=== PATIENT | male | born 1940 | race Caucasian/White ===

== ENCOUNTER → 2018-07-26 | Outpatient (REF) | payer MEDICARE ==
[2018-07-26 16:52] LABS: APPEARANCE, URINE HAZY (CLEAR); BACTERIA, URINE AUTO NEGATIVE (NEGATIVE); BILIRUBIN, URINE AUTO NEGATIVE (NEGATIVE); BLOOD, URINE BLOOD NEGATIVE (NEGATIVE); CALCIUM OXALATE CRYSTALS SMALL; COLOR, URINE YELLOW (YELLOW); GLUCOSE, URINE (UA) AUTO NEGATIVE (NEGATIVE); KETONE, URINE AUTO NEGATIVE (NEGATIVE); LEUKOCYTE ESTERASE, URINE AUTO NEGATIVE (NEGATIVE); MUCUS, URINE SMALL (NEGATIVE); NITRITE, URINE AUTO NEGATIVE (NEGATIVE); PROTEIN, URINE AUTO NEGATIVE (NEGATIVE); RBC, URINE AUTO 3 /HPF (0-3); SPECIFIC GRAVITY URINE AUTO 1.018 (1.002-1.035); SQUAMOUS EPITHELIAL CELL UR AU 0 /HPF (0-6); WBC, URINE AUTO 0 /HPF (0-3)
[2018-07-26 17:00] LABS: BASO % 0.4 % (0.0-1.0); EOS # 0.2 10^3/uL (0.0-0.50); EOS % 4.6 % (0.0-3.0); HEMATOCRIT 36.3 % (42.0-52.0); HEMOGLOBIN 11.8 g/dl (13.5-17.5); LYMPH # 1.4 10^3/uL (1.5-4.5); LYMPH % 27.1 % (24.0-44.0); MEAN CORPUSCULAR HEMOGLOBIN 29.9 pg (27.0-33.0); MEAN CORPUSCULAR HGB CONC 32.5 g/dl (32.0-36.5); MEAN CORPUSCULAR VOLUME 91.9 fl (80.0-96.0); MONO # 0.5 10^3/uL (0.0-0.8); MONO % 9.8 % (0.0-5.0); NEUTROPHILS % 57.9 % (36.0-66.0); PLATELET COUNT, AUTOMATED 156 10^3/uL (150-450); RED BLOOD COUNT 3.95 10^6/uL (4.30-6.10); WHITE BLOOD COUNT 5.2 10^3/uL (4.0-10.0)
[2018-07-26 17:08] LABS: CREATININE, URINE 87.9 MG/DL; MALB URINE SIEMENS 6.1 MG/L; MAU/CREAT RATIO 6.9 MCG/MG (0.0-30.0)
[2018-07-26 17:39] LABS: ALBUMIN 3.3 GM/DL (3.2-5.2); ALT/SGPT 18 U/L (12-78); BILIRUBIN,TOTAL 0.5 MG/DL (0.2-1.0); BLOOD UREA NITROGEN 31 MG/DL (7-18); CALCIUM LEVEL 8.2 MG/DL (8.8-10.2); CARBON DIOXIDE LEVEL 27 MEQ/L (21-32); CHLORIDE LEVEL 102 MEQ/L (98-107); CREATININE FOR GFR 1.02 MG/DL (0.70-1.30); FREE T4 0.92 NG/DL (0.76-1.46); GLOMERULAR FILTRATION RATE > 60.0 (>42); GLUCOSE, FASTING 187 MG/DL (70-100); POTASSIUM SERUM 4.4 MEQ/L (3.5-5.1); SODIUM LEVEL 136 MEQ/L (136-145); TOTAL PROTEIN 7.2 GM/DL (6.4-8.2)
== END ==
LOC: M SFHCPLAZ 14:27
PROVIDERS: ATTEND Nurse Practitioner Family
DX: R19.7 Diarrhea, unspecified (principal); E11.65 Type 2 diabetes mellitus with hyperglycemia; R63.4 Abnormal weight loss; R35.0 Frequency of micturition
CPT/HCPCS: 36415; 80053; 81001; 82043; 83036; 84153; 84439; 84443; 85025; 87086; G0463

== ENCOUNTER → 2018-07-27 | Outpatient (REF) | payer MEDICARE | LOC: M LAB REF 10:01 | PROVIDERS: ATTEND Nurse Practitioner Family | DX: R19.7 Diarrhea, unspecified (principal) ==

== ENCOUNTER → 2018-09-04 | Outpatient (CLI) | payer MEDICARE, MEDICAID ==
--- NOTE | 2018-09-09 10:03 | REP ---
KUB: Two views. HISTORY: Full incontinence of feces. Sitz marker study. No comparison study. FINDINGS: Two views of the abdomen demonstrate a total of seven retained colonic sitz marker opacities. One of these is in the region of the hepatic flexure, another is in the splenic flexure, and the remaining five are distributed in the pelvis consistent with a location in the distal colon. There is vas deferens calcification noted along with vascular calcification. Degenerative changes are seen in the lumbar spine. Psoas margins are intact. No larger small bowel dilation is seen. Moderate stool. IMPRESSION: There are seven of the ingested sitz markers distributed in the proximal and distal colon on today's KUB films. Electronically Signed by Taco Chavis MD 09/09/2018 11:36 A
== END ==
LOC: M RAD 13:17
PROVIDERS: ATTEND Internal Medicine Gastroenterology
DX: R15.9 Full incontinence of feces (principal)

== ENCOUNTER → 2018-09-23 | Outpatient (CLI) | payer MEDICARE, MEDICAID ==
[~2018-09-23] MED LIST: E-Z-GAS II EFFERVESCENT PACKET (SODIUM BICARB./CITRIC ACID/SIMETHICONE) As Ordered ONE; E-Z-HD 98% w/w 340GM SUSP BTL As Ordered ONE; E-Z-PAQUE 96% w/w SUSP 176GM BTL As Ordered ONE
--- NOTE | 2018-09-23 17:23 | REP ---
Examination Requested: Esophagram Barium Swallow Reason For Exam/Comment: Dysphasia Esophagram: The procedure was performed JOO Soriano, under the direct supervision of Dr. Santoyo. The images were reviewed with Natanael. A single PA chest x-ray is submitted as a vault attendant film. The superior mediastinal structures are midline. The heart size is within normal limits. The lungs are clear. There are surgical wires noted in the mediastinal area from previous surgery. Liquid barium and gas producing granules were given in the erect position as well as liquid barium in the prone oblique positions in order to perform a double contrast esophagram examination. Oral and pharyngeal stages of the examination demonstrate laryngeal penetration. Esophageal transport displays evidence of to and fro peristalsis along with delayed emptying. There is no esophagitis, stricture, or mucosal ring noted. There is is a small hiatal hernia noted. Gastroesophageal reflux was not demonstrated throughout the course of this exam. Impression: 1. Laryngeal penetration. 2. Presbyesophagus 1.2 minutes of fluoroscopy time was utilized for this procedure. Reviewed by JOO Grubbs 09/23/2018 05:09 P Electronically Signed by Edy Santoyo MD 09/23/2018 05:15 P
== END ==
LOC: M RAD 10:06
PROVIDERS: ATTEND Internal Medicine Gastroenterology
DX: R13.10 Dysphagia, unspecified (principal); K22.8 Other specified diseases of esophagus

== ENCOUNTER → 2018-10-22 | Outpatient (REF) | payer MEDICARE, MEDICAID ==
[~2018-10-22] MED LIST changes: +ASPI81TA85 PO; +DONE10TA90 PO; -E-Z-GAS II EFFERVESCENT PACKET (SODIUM BICARB./CITRIC ACID/SIMETHICONE) As Ordered ONE; -E-Z-HD 98% w/w 340GM SUSP BTL As Ordered ONE; -E-Z-PAQUE 96% w/w SUSP 176GM BTL As Ordered ONE; +GABA-843 PO; +GNP50LIQ PO; +INSUDET SC; +INSUHUMDS SC; +MEMA1TAB2 PO; +TRIA37.53 PO; +VITA500T3 PO
[2018-10-22 11:50] LABS: HEMATOCRIT 36.4 % (42.0-52.0); HEMOGLOBIN 11.9 g/dl (13.5-17.5); MEAN CORPUSCULAR HEMOGLOBIN 30.4 pg (27.0-33.0); MEAN CORPUSCULAR HGB CONC 32.7 g/dl (32.0-36.5); MEAN CORPUSCULAR VOLUME 93.1 fl (80.0-96.0); PLATELET COUNT, AUTOMATED 123 10^3/uL (150-450); RED BLOOD COUNT 3.91 10^6/uL (4.30-6.10); WHITE BLOOD COUNT 5.7 10^3/uL (4.0-10.0)
[2018-10-22 12:50] LABS: ALBUMIN 3.3 GM/DL (3.2-5.2); ALT/SGPT 30 U/L (12-78); BILIRUBIN,TOTAL 0.4 MG/DL (0.2-1.0); BLOOD UREA NITROGEN 34 MG/DL (7-18); CALCIUM LEVEL 8.6 MG/DL (8.8-10.2); CARBON DIOXIDE LEVEL 27 MEQ/L (21-32); CHLORIDE LEVEL 106 MEQ/L (98-107); CHOLESTEROL LEVEL 187 MG/DL (<200); CHOLESTEROL RISK RATIO 2.968 (<5); CREATININE FOR GFR 1.16 MG/DL (0.70-1.30); FOLATE 10.1 NG/ML; GLOMERULAR FILTRATION RATE > 60.0 (>42); GLUCOSE, FASTING 143 MG/DL (70-100); HDL CHOLESTEROL 63 MG/DL (>40); LDL CHOLESTEROL 110 MG/DL (<100); MAGNESIUM LEVEL 2.1 MG/DL (1.8-2.4); NON-HDL-C 124 MG/DL; POTASSIUM SERUM 4.3 MEQ/L (3.5-5.1); SODIUM LEVEL 140 MEQ/L (136-145); TOTAL PROTEIN 6.7 GM/DL (6.4-8.2); TRIGLYCERIDES LEVEL 70 MG/DL (<150); VITAMIN B12 LEVEL 1256 PG/ML
[2018-10-22 14:38] LABS: HEMOGLOBIN A1c 7.5 %
== END ==
LOC: M SFHCPLAZ 08:38
PROVIDERS: ATTEND Nurse Practitioner Family
DX: D51.9 Vitamin B12 deficiency anemia, unspecified (principal); E11.65 Type 2 diabetes mellitus with hyperglycemia

== ENCOUNTER 2018-10-31 10:25 | Day surgery (SDC) | payer MEDICARE, MEDICAID ==
[~2018-10-31] VITALS: Ht 190.5 cm; Wt 82.6 kg
[~2018-10-31 10:25] MED LIST changes: +LIDOCAINE 2% INJ 100 MG/5 ML SDV (FOR ANES.) As Ordered ONE; +NS 1,000 ML IV ONE; +PROPOFOL 200 MG/20 ML VIAL As Ordered ONE
--- NOTE | 2018-10-31 12:07 | ROOR ---
Patient Name: Cristian Ramirez Procedure Date: 10/31/2018 11:47 AM Date of : 1940 Age: 77 Room: [facility] Gender: Male Note Status: Finalized Procedure: Upper GI endoscopy Indications: Dysphagia Providers: Bryant CISNEROS MD Referring MD: Nika León NP Requesting Provider: Medicines: Monitored Anesthesia Care Complications: No immediate complications. Procedure: Pre-Anesthesia Assessment: - The heart rate, respiratory rate, oxygen saturations, blood pressure, adequacy of pulmonary ventilation, and response to care were monitored throughout the procedure. The Endoscope was introduced through the mouth, and advanced to the second part of duodenum. The upper GI endoscopy was accomplished without difficulty. The patient tolerated the procedure well. Findings: Localized, white plaques were found in the proximal esophagus. Biopsies were taken with a cold forceps for histology. The exam of the esophagus was otherwise normal. Four biopsies were obtained with cold forceps for histology in the upper third of the esophagus, in the middle third of the esophagus and in the lower third of the esophagus. Localized mild inflammation characterized by erythema was found in the gastric antrum. Biopsies were taken with a cold forceps for histology. The exam of the stomach was otherwise normal. The examined duodenum was normal. Impression: - A few white esophageal plaques were found, suspicious for mild candidiasis. Biopsied. - The esophagus is otherwise normal. - Biopsied for r/o Eosinophilic esophagitis. - No definite cause for difficult swallowing is seen. - Mild antral gastritis. Biopsied. - The stomach was otherwise normal. - Normal examined duodenum. Recommendation: - Nystatin suspension 100,000 units PO QID for 1 week. - (the script was sent to your pharmacy on file) - Telephone endoscopist for pathology results in 2 weeks. - Soft diet. Bryant Cisneros MD Bryant CISNEROS MD 10/31/2018 12:07:03 PM Electronically signed by Braynt CISNEROS MD Number of Addenda: 0 Note Initiated On: 10/31/2018 11:47 AM Estimated Blood Loss: Estimated blood loss: none.
[2018-10-31] MEDS ORDERED: GLYCOPYRROLATE INJ 0.2 MG/ML 2 ML VIAL As Ordered ONE (12:12)
--- NOTE | 2018-10-31 12:32 | ROOR ---
Patient Name: Cristian Ramirez Procedure Date: 10/31/2018 11:48 AM Date of : 1940 Age: 77 Room: [facility] Gender: Male Note Status: Finalized Procedure: Colonoscopy Indications: Clinically significant diarrhea of unexplained origin, Change in bowel habits, Fecal incontinence, Fecal impaction with overflow sx suspected based on abnormal Sitzmark test. Providers: Bryant CISNEROS MD Referring MD: Nika León NP Requesting Provider: Medicines: Monitored Anesthesia Care Complications: No immediate complications. Procedure: Pre-Anesthesia Assessment: - The heart rate, respiratory rate, oxygen saturations, blood pressure, adequacy of pulmonary ventilation, and response to care were monitored throughout the procedure. The Colonoscope was introduced through the anus and advanced to the terminal ileum, with identification of the appendiceal orifice and IC valve. The colonoscopy was performed without difficulty. The patient tolerated the procedure well. The quality of the bowel preparation was fair. Findings: The perianal and digital rectal examinations were normal. Two sessile polyps were found in the sigmoid colon. The polyps were diminutive in size. These polyps were removed with a cold snare. Resection and retrieval were complete. Internal hemorrhoids were found during retroflexion. The hemorrhoids were medium-sized. The terminal ileum appeared normal. The exam was otherwise without abnormality on direct and retroflexion views. Impression: - Colon prep was fair/adequate afer lavage. - Two diminutive polyps in the sigmoid colon, removed with a cold snare. Resected and retrieved. - Internal hemorrhoids. - The colon examination was otherwise normal on direct and retroflexion views. - The examined portion of the ileum was normal.- Recommendation: - Repeat colonoscopy in 2 years because the bowel preparation was suboptimal. - Continue present medications. - Use daily dose of lactulose to prevent constipation repeat impaction. Bryant Cisneros MD Bryant CISNEROS MD 10/31/2018 12:32:18 PM Electronically signed by Bryant CISNEROS MD Number of Addenda: 0 Note Initiated On: 10/31/2018 11:48 AM Estimated Blood Loss: Estimated blood loss: none.
[2018-10-31 13:00] VITALS: BP 120/55
== END 2018-10-31 13:24 | disposition home or self-care (01) ==
LOC: M OPP 10:25
PROVIDERS: ATTEND Internal Medicine Gastroenterology
DX: K64.8 Other hemorrhoids (principal); D12.5 Benign neoplasm of sigmoid colon; R19.7 Diarrhea, unspecified; R19.4 Change in bowel habit; R15.9 Full incontinence of feces; K22.9 Disease of esophagus, unspecified; K29.70 Gastritis, unspecified, without bleeding; R13.10 Dysphagia, unspecified; Z79.4 Long term (current) use of insulin; Z79.82 Long term (current) use of aspirin; Z79.899 Other long term (current) drug therapy

== ENCOUNTER → 2018-11-01 | Outpatient (REF) | payer MEDICARE, MEDICAID ==
[~2018-11-01] MED LIST changes: -LIDOCAINE 2% INJ 100 MG/5 ML SDV (FOR ANES.) As Ordered ONE; -NS 1,000 ML IV ONE; -PROPOFOL 200 MG/20 ML VIAL As Ordered ONE
[2018-11-01 12:26] LABS: AMORPHOUS SEDIMENT MODERATE (NEGATIVE); APPEARANCE, URINE TURBID (CLEAR); BACTERIA, URINE AUTO 2+ (NEGATIVE); BILIRUBIN, URINE AUTO NEGATIVE (NEGATIVE); BLOOD, URINE BLOOD 1+ (NEGATIVE); COLOR, URINE YELLOW (YELLOW); GLUCOSE, URINE (UA) AUTO NEGATIVE (NEGATIVE); KETONE, URINE AUTO NEGATIVE (NEGATIVE); LEUKOCYTE ESTERASE, URINE AUTO 3+ (NEGATIVE); MUCUS, URINE SMALL (NEGATIVE); NITRITE, URINE AUTO POSITIVE (NEGATIVE); PROTEIN, URINE AUTO 1+ mg/dL (NEGATIVE); RBC, URINE AUTO 51 /HPF (0-3); SPECIFIC GRAVITY URINE AUTO 1.015 (1.002-1.035); SQUAMOUS EPITHELIAL CELL UR AU 1 /HPF (0-6); UROBILINOGEN, URINE AUTO 0.2 mg/dL (0.0-2.0); WBC, URINE AUTO TNTC /HPF (0-3)
== END ==
LOC: M SFHCPLAZ 11:47
PROVIDERS: ATTEND Nurse Practitioner Family
DX: R30.0 Dysuria (principal)
CPT/HCPCS: 81001; 81002; 87088; 87186; G0463

== ENCOUNTER → 2018-11-18 | Outpatient (REF) | payer MEDICARE, MEDICAID ==
[~2018-11-18] MED LIST changes: +CYAN500T8 PO; -VITA500T3 PO
== END ==
LOC: M LAB REF 15:37
PROVIDERS: ATTEND Physician Assistant
DX: N30.01 Acute cystitis with hematuria (principal)

== ENCOUNTER → 2018-11-30 | Outpatient (REF) | payer MEDICARE, MEDICAID, OTHER ==
[2018-11-30 21:26] LABS: APPEARANCE, URINE CLOUDY (CLEAR); BACTERIA, URINE AUTO 1+ (NEGATIVE); BILIRUBIN, URINE AUTO NEGATIVE (NEGATIVE); BLOOD, URINE BLOOD 1+ (NEGATIVE); COLOR, URINE YELLOW (YELLOW); GLUCOSE, URINE (UA) AUTO NEGATIVE (NEGATIVE); KETONE, URINE AUTO TRACE mg/dL (NEGATIVE); LEUKOCYTE ESTERASE, URINE AUTO 3+ (NEGATIVE); MUCUS, URINE SMALL (NEGATIVE); NITRITE, URINE AUTO NEGATIVE (NEGATIVE); PROTEIN, URINE AUTO NEGATIVE (NEGATIVE); RBC, URINE AUTO 9 /HPF (0-3); SPECIFIC GRAVITY URINE AUTO 1.017 (1.002-1.035); SQUAMOUS EPITHELIAL CELL UR AU 0 /HPF (0-6); UROBILINOGEN, URINE AUTO 0.2 mg/dL (0.0-2.0); WBC, URINE AUTO TNTC /HPF (0-3)
== END ==
LOC: M LAB REF 09:57
PROVIDERS: ATTEND Physician Assistant
DX: N39.0 Urinary tract infection, site not specified (principal)

== ENCOUNTER → 2018-12-20 | Outpatient (CLI) | payer MEDICARE ==
--- NOTE | 2018-12-20 13:33 | REP ---
Renal ultrasound for frequent urinary tract infections: The right kidney measures 11.1 x 6.3 x 6.3 cm. The left kidney measures 12.7 x 5.3 x 5.4 cm. The kidneys are normal size. Renal cortical echogenicity is normal bilaterally. There is no hydronephrosis or calculus on the right on the left. There are are no solid renal masses. There is a right renal upper pole 3.1 cm parapelvic cyst. This appears to be a Bosniak type 1 simple cyst. There is a right renal 1.5 cm Bosniak type 1 lower pole simple cyst. Bladder: The pre void bladder volume is 318 ml. The postvoid bladder volume is 147 ml. The postvoid residual is 46.2%. On the distended bladder views of the bladder wall is thickened measuring up to 4.4 mm and this may related to bladder infection. No focal bladder wall polyps or masses are identified. There is a left ureteral jet into the urinary bladder with color Doppler assessment. No right ureteral jet is identified, however, there is no right hydronephrosis. Impression: There are two right renal cysts as described. There are no solid renal masses. There are no renal calculi. There is no hydronephrosis. Postvoid residual in the urinary bladder is 46.2%. There is bladder wall thickening, however, there are no bladder wall polyps or masses. The right ureteral jet cannot be identified with color Doppler assessment, however there is no right hydronephrosis. The prostate is enlarged. The prostate is enlarged measuring 4.4 x 4.3 x 5.1 cm for a volume of 50.4 cc. Normal prostate volume is 25 - 30 cc. Electronically Signed by Edy Bowman MD 12/20/2018 01:25 P
== END ==
LOC: M RAD 12:19
PROVIDERS: ATTEND Nurse Practitioner Family
DX: Q61.02 Congenital multiple renal cysts (principal); N40.0 Benign prostatic hyperplasia without lower urinary tract symptoms; N39.0 Urinary tract infection, site not specified

== ENCOUNTER → 2018-12-20 | Outpatient (REF) | payer MEDICARE ==
[2018-12-20 18:10] LABS: APPEARANCE, URINE HAZY (CLEAR); BACTERIA, URINE AUTO 1+ (NEGATIVE); BILIRUBIN, URINE AUTO NEGATIVE (NEGATIVE); BLOOD, URINE BLOOD NEGATIVE (NEGATIVE); COLOR, URINE YELLOW (YELLOW); GLUCOSE, URINE (UA) AUTO NEGATIVE (NEGATIVE); KETONE, URINE AUTO NEGATIVE (NEGATIVE); LEUKOCYTE ESTERASE, URINE AUTO NEGATIVE (NEGATIVE); MUCUS, URINE SMALL (NEGATIVE); NITRITE, URINE AUTO NEGATIVE (NEGATIVE); PROTEIN, URINE AUTO NEGATIVE (NEGATIVE); RBC, URINE AUTO 13 /HPF (0-3); SPECIFIC GRAVITY URINE AUTO 1.019 (1.002-1.035); SQUAMOUS EPITHELIAL CELL UR AU 0 /HPF (0-6); UROBILINOGEN, URINE AUTO 0.2 mg/dL (0.0-2.0); WBC, URINE AUTO 1 /HPF (0-3)
== END ==
LOC: M SMT 16:57
PROVIDERS: ATTEND Nurse Practitioner Family
DX: N39.0 Urinary tract infection, site not specified (principal)

== ENCOUNTER → 2018-12-30 | Outpatient (REF) | payer MEDICARE ==
[2018-12-30 13:28] LABS: APPEARANCE, URINE CLEAR (CLEAR); BACTERIA, URINE AUTO NEGATIVE (NEGATIVE); BILIRUBIN, URINE AUTO NEGATIVE (NEGATIVE); BLOOD, URINE BLOOD NEGATIVE (NEGATIVE); COLOR, URINE YELLOW (YELLOW); GLUCOSE, URINE (UA) AUTO 1+ mg/dL (NEGATIVE); KETONE, URINE AUTO NEGATIVE (NEGATIVE); LEUKOCYTE ESTERASE, URINE AUTO NEGATIVE (NEGATIVE); MUCUS, URINE SMALL (NEGATIVE); NITRITE, URINE AUTO NEGATIVE (NEGATIVE); PROTEIN, URINE AUTO NEGATIVE (NEGATIVE); RBC, URINE AUTO 0 /HPF (0-3); SPECIFIC GRAVITY URINE AUTO 1.018 (1.002-1.035); SQUAMOUS EPITHELIAL CELL UR AU 0 /HPF (0-6); UROBILINOGEN, URINE AUTO 0.2 mg/dL (0.0-2.0); WBC, URINE AUTO 1 /HPF (0-3)
== END ==
LOC: M SMT 13:03
PROVIDERS: ATTEND Nurse Practitioner Family
DX: N39.0 Urinary tract infection, site not specified (principal)

== ENCOUNTER → 2019-01-24 | Outpatient (REF) | payer MEDICARE, MEDICAID ==
[2019-01-24 12:42] LABS: HEMATOCRIT 38.1 % (42.0-52.0); HEMOGLOBIN 12.3 g/dl (13.5-17.5); MEAN CORPUSCULAR HEMOGLOBIN 30.7 pg (27.0-33.0); MEAN CORPUSCULAR HGB CONC 32.3 g/dl (32.0-36.5); PLATELET COUNT, AUTOMATED 163 10^3/uL (150-450); RED BLOOD COUNT 4.01 10^6/uL (4.30-6.10); WHITE BLOOD COUNT 6.1 10^3/uL (4.0-10.0)
[2019-01-24 12:50] LABS: ALBUMIN 3.3 GM/DL (3.2-5.2); ALT/SGPT 106 U/L (12-78); BILIRUBIN,TOTAL 0.8 MG/DL (0.2-1.0); BLOOD UREA NITROGEN 22 MG/DL (7-18); CARBON DIOXIDE LEVEL 29 MEQ/L (21-32); CHLORIDE LEVEL 106 MEQ/L (98-107); CREATININE FOR GFR 1.06 MG/DL (0.70-1.30); FERRITIN 200 NG/ML (26-388); GLOMERULAR FILTRATION RATE > 60.0 (>35); GLUCOSE, FASTING 121 MG/DL (70-100); IRON (FE) 55 UG/DL (65-175); PERCENT SATURATION 19.1 % (19.7-50.0); POTASSIUM SERUM 4.5 MEQ/L (3.5-5.1); SODIUM LEVEL 140 MEQ/L (136-145); TOTAL IRON BINDING CAPACITY 288 UG/DL (250-450); TOTAL PROTEIN 6.9 GM/DL (6.4-8.2)
[2019-01-24 14:13] LABS: HEMOGLOBIN A1c 6.7 %
== END ==
LOC: M SFHCPLAZ 08:52
PROVIDERS: ATTEND Nurse Practitioner Family
DX: D64.9 Anemia, unspecified (principal); E11.65 Type 2 diabetes mellitus with hyperglycemia

== ENCOUNTER → 2019-02-11 | Outpatient (CLI) | payer MEDICARE, OTHER, MEDICAID ==
[2019-02-11 11:09] LABS: % LABILE ALKALINE PHOSPHATASE 70.8 %; ALBUMIN 3.2 GM/DL (3.2-5.2); BILIRUBIN,DIRECT 0.3 MG/DL (0.0-0.2); BILIRUBIN,TOTAL 0.6 MG/DL (0.2-1.0); TOTAL PROTEIN 6.7 GM/DL (6.4-8.2)
[2019-02-12 12:43] LABS: HEPATITIS C VIRUS ABY INDEX 0.2 INDEX (<0.8)
== END ==
LOC: M WUC 08:19
PROVIDERS: ATTEND Nurse Practitioner Family
DX: R94.5 Abnormal results of liver function studies (principal)

== ENCOUNTER → 2019-02-17 | Outpatient (CLI) | payer MEDICARE, OTHER, MEDICAID ==
--- NOTE | 2019-02-17 10:13 | REP ---
RIGHT UPPER QUADRANT ULTRASOUND: Real-time sonographic evaluation of the right upper quadrant performed. Gallbladder is contracted. Multiple gallstones are seen. There is gallbladder wall thickening up to 6 mm. Rounded hypoechoic area in the region of the fundus of the gallbladder could be related to adherent sludge, but underlying polyp cannot be excluded 1.5 cm in diameter. There is no pericholecystic fluid. There is no intrahepatic or extrahepatic biliary dilatation, common bile duct measuring 6 mm. Liver demonstrates no gross mass. Pancreas could not be visualized due to overlying bowel gas. Right kidney demonstrates no hydronephrosis with normal size 11.2 cm in length. There is a right renal cyst in the upper aspect 2.8 x 2.6 x 2.7 cm. IMPRESSION: Contracted gallbladder containing sludge and stones. Gallbladder wall appears thickened at 6 mm, but this could be partially due to its contacted state. Rounded structure in the region of the fundus along the inner wall could represent sludge, but underlying 1.5 cm polyp could not be excluded. This is difficult to evaluate due to the contraction of the gallbladder. No free fluid. No biliary dilatation. Electronically Signed by Edy Santoyo MD 02/17/2019 04:32 P
== END ==
LOC: M RAD 07:36
PROVIDERS: ATTEND Nurse Practitioner Family
DX: R94.5 Abnormal results of liver function studies (principal)

== ENCOUNTER → 2019-02-21 | Outpatient (REF) | payer MEDICARE, OTHER, MEDICAID ==
[2019-02-21 14:43] LABS: APPEARANCE, URINE CLEAR (CLEAR); BACTERIA, URINE AUTO NEGATIVE (NEGATIVE); BILIRUBIN, URINE AUTO NEGATIVE (NEGATIVE); BLOOD, URINE BLOOD 1+ (NEGATIVE); COLOR, URINE YELLOW (YELLOW); GLUCOSE, URINE (UA) AUTO NEGATIVE (NEGATIVE); KETONE, URINE AUTO NEGATIVE (NEGATIVE); LEUKOCYTE ESTERASE, URINE AUTO NEGATIVE (NEGATIVE); NITRITE, URINE AUTO NEGATIVE (NEGATIVE); PROTEIN, URINE AUTO NEGATIVE (NEGATIVE); RBC, URINE AUTO 1 /HPF (0-3); SPECIFIC GRAVITY URINE AUTO 1.011 (1.002-1.035); SQUAMOUS EPITHELIAL CELL UR AU 0 /HPF (0-6); UROBILINOGEN, URINE AUTO 0.2 mg/dL (0.0-2.0); WBC, URINE AUTO 1 /HPF (0-3)
== END ==
LOC: M SMT 13:19
PROVIDERS: ATTEND Nurse Practitioner Family
DX: N39.0 Urinary tract infection, site not specified (principal)
CPT/HCPCS: 51798; 81001; 87086; G0463

== ENCOUNTER → 2019-04-03 | Outpatient (REF) | payer MEDICARE, OTHER, MEDICAID ==
[2019-04-03 15:03] LABS: APPEARANCE, URINE CLEAR (CLEAR); BACTERIA, URINE AUTO NEGATIVE (NEGATIVE); BILIRUBIN, URINE AUTO NEGATIVE (NEGATIVE); BLOOD, URINE BLOOD NEGATIVE (NEGATIVE); COLOR, URINE YELLOW (YELLOW); GLUCOSE, URINE (UA) AUTO NEGATIVE (NEGATIVE); KETONE, URINE AUTO NEGATIVE (NEGATIVE); LEUKOCYTE ESTERASE, URINE AUTO NEGATIVE (NEGATIVE); NITRITE, URINE AUTO NEGATIVE (NEGATIVE); PROTEIN, URINE AUTO NEGATIVE (NEGATIVE); RBC, URINE AUTO 1 /HPF (0-3); SPECIFIC GRAVITY URINE AUTO 1.014 (1.002-1.035); SQUAMOUS EPITHELIAL CELL UR AU 0 /HPF (0-6); UROBILINOGEN, URINE AUTO 0.2 mg/dL (0.0-2.0); WBC, URINE AUTO 0 /HPF (0-3)
== END ==
LOC: M SMT 13:28
PROVIDERS: ATTEND Nurse Practitioner Family
DX: R32 Unspecified urinary incontinence (principal)
CPT/HCPCS: 51798; 81001; 87086; G0463

== ENCOUNTER → 2019-04-11 | Outpatient (CLI) | payer MEDICARE, OTHER ==
--- NOTE | 2019-04-11 14:34 | REP ---
MRI ABDOMEN WITHOUT CONTRAST: COMPARISON: Liver ultrasound 02/17/2019. The gallbladder is somewhat contracted. There is diffuse irregular wall thickening. Underlying neoplasm or polyp cannot be excluded. There is mild central intrahepatic biliary dilatation. Common bile duct is mildly dilated up to 10 mm. In the distal common bile duct there appear to be a few tiny filling defects 3 to 4 mm in diameter suspicious for calculi. No definite liver mass is seen. Spleen is normal in size with no intrinsic abnormality. The adrenal glands are normal. Pancreas demonstrates multiple tiny subcentimeter cystic structures throughout the head, body and tail. The largest is in the uncinate process measuring 8 mm. There is no pancreatic duct diltation. Cyst in the mid right kidney measures 3.5 cm in diameter. Another in the lower pole of the right kidney measures 1.2 cm in diameter. No adenopathy is seen. No free fluid is seen in the abdomen. IMPRESSION: Irregular thickening of the gallbladder wall with contraction of the gallbladder. Heterogeneous signal in the lumen. I cannot exclude underlying neoplasm or polyp. Common bile duct is mildly dilated up to 10 mm. I suspect a few tiny stones in the distal common bile duct. Multiple subcentimeter cysts scattered throughout the pancreas. The largest is in the uncinate process measuring 8 mm maximally. Recommend followup MRI in 1 year. Right renal cyst. Electronically Signed by Edy Santoyo MD 04/14/2019 09:33 A
== END ==
LOC: M RAD 10:43
PROVIDERS: ATTEND Surgery
DX: R94.5 Abnormal results of liver function studies (principal); K86.2 Cyst of pancreas; N28.1 Cyst of kidney, acquired

== ENCOUNTER → 2019-06-05 | Outpatient (CLI) | payer MEDICARE, OTHER ==
[~2019-06-05] MED LIST changes: +MEMA10TA19 PO; -MEMA1TAB2 PO
[2019-06-05 13:28] LABS: ALBUMIN 3.7 GM/DL (3.2-5.2); BILIRUBIN,TOTAL 0.4 MG/DL (0.2-1.0); CALCIUM LEVEL 8.7 MG/DL (8.8-10.2); CREATININE FOR GFR 1.25 MG/DL (0.70-1.30); GLOMERULAR FILTRATION RATE 59.2 (>35); POTASSIUM SERUM 4.8 MEQ/L (3.5-5.1); TOTAL PROTEIN 7.3 GM/DL (6.4-8.2)
[2019-06-05 14:00] LABS: HEMOGLOBIN A1c 7.2 %
[2019-06-05 14:06] LABS: MAU/CREAT RATIO 14.2 MCG/MG (0.0-30.0)
== END ==
LOC: M PLALAB 09:13
PROVIDERS: ATTEND Nurse Practitioner Family
DX: E11.40 Type 2 diabetes mellitus with diabetic neuropathy, unspecified (principal)

== ENCOUNTER 2019-06-11 05:54 | Day surgery (SDC) | payer MEDICARE ==
[~2019-06-11] VITALS: Ht 190.5 cm; Wt 87.9 kg
[2019-06-11] MEDS ORDERED: LR 1,000 ML IV ONE (06:00)
[2019-06-11] MEDS ORDERED: SIMETHICONE 40MG/0.6ML DROPS 30ML As Ordered ONE (07:06)
[2019-06-11] MEDS ORDERED: ISOVUE-300 61% 50ML VIAL (Q9967) As Ordered ONE (07:06)
[2019-06-11] MEDS ORDERED: LIDOCAINE 2% INJ 100 MG/5 ML SDV (FOR ANES.) As Ordered ONE (07:16)
[2019-06-11] MEDS ORDERED: fentaNYL 100 MCG/2 ML INJECTION (J3010) As Ordered ONE (07:16)
[2019-06-11] MEDS ORDERED: ONDANSETRON 4MG/2ML VIAL (J2405) As Ordered ONE (07:16)
[2019-06-11] MEDS ORDERED: ROCURONIUM BROMIDE 50 MG/5 ML VIAL As Ordered ONE (07:16)
[2019-06-11] MEDS ORDERED: propofoL 200 MG/20 ML VIAL As Ordered ONE (07:16)
[2019-06-11] MEDS ORDERED: SUGAMMADEX SODIUM 500 MG/5 ML VIAL (BRIDION) As Ordered ONE (08:06)
--- NOTE | 2019-06-11 08:24 | ROOR ---
Patient Name: Cristian Ramirez Procedure Date: 06/11/2019 7:16 AM Date of : 1940 Age: 78 Room: [facility] Gender: Male Note Status: Finalized Procedure: ERCP Indications: Common bile duct stone(s) Providers: Bryant CISNEROS MD Referring MD: Nika León NP, Lux Jansen Jr, MD Requesting Provider: Medicines: General Anesthesia Complications: No immediate complications. Procedure: Pre-Anesthesia Assessment: - After reviewing the risks and benefits, the patient was deemed in satisfactory condition to undergo the procedure. - The heart rate, respiratory rate, oxygen saturations, blood pressure, adequacy of pulmonary ventilation, and response to care were monitored throughout the procedure. The Duodenoscope was introduced through the mouth, and advanced to the duodenum and used to inject contrast into the bile duct. The ERCP was accomplished without difficulty. The patient tolerated the procedure well. Findings: The cleaner furniture film was normal. The esophagus was successfully intubated under direct vision. The scope was advanced to a normal major papilla in the descending duodenum without detailed examination of the pharynx, larynx and associated structures, and upper GI tract. The upper GI tract was grossly normal. A wire was passed into the biliary tree. The bile duct was then deeply cannulated over the guidewire. Contrast was injected. I personally interpreted the bile duct images. Ductal flow of contrast was adequate. Image quality was adequate. Contrast extended to the main bile duct. Contrast extended to the cystic duct. Contrast extended to the bifurcation. Contrast extended to the hepatic ducts. Choledocholithiasis was found in a nondilated duct. An 8 mm biliary sphincterotomy was made with a monofilament traction (standard) sphincterotome using ERBE electrocautery. There was no post-sphincterotomy bleeding. The biliary tree was swept with a 12 mm balloon starting at the bifurcation. All stones were removed. Impression: - Choledocholithiasis was found. Complete removal was accomplished by biliary sphincterotomy and balloon extraction. - A biliary sphincterotomy was performed. The biliary tree was swept. - Cystic duct fills partially, Gallbladder does not visualize. Recommendation: - Surgical consultation for consideration of cholecystectomy at the next available appointment. - Written discharge instructions were provided to the patient. Bryant Cisneros MD Bryant CISNEROS MD 06/11/2019 8:24:15 AM Electronically signed by Bryant CISNEROS MD Number of Addenda: 0 Note Initiated On: 06/11/2019 7:16 AM Estimated Blood Loss: Estimated blood loss: none.
[2019-06-11] MEDS ORDERED: ePHEDrine SULFATE 25 MG/5 ML(5MG/ML) SYRINGE As Ordered ONE (08:31)
[2019-06-11] MEDS ORDERED: fentaNYL 100 MCG/2 ML INJECTION (J3010) IV PRN (09:00)
[2019-06-11] MEDS ORDERED: oxyCODONE 5MG TAB PO PRN (09:00)
[2019-06-11] MEDS ORDERED: ONDANSETRON 4MG/2ML VIAL (J2405) IV PRN (09:00)
[2019-06-11] MEDS ORDERED: LR 1,000 ML IV SCH (09:00)
[2019-06-11 09:13] VITALS: BP 132/68
--- NOTE | 2019-06-11 09:19 | REP ---
ERCP intra operative fluoroscopic views: A series of 25 intraoperative fluoroscopic views are performed during an ERCP procedure. Fluoroscopic exposure time is 4 minutes and 24 seconds. The fluoroscopic images are performed with last image hold technology, resulting in reduction in radiation exposure. Electronically Signed by Edy Bowman MD 06/11/2019 09:10 A
== END 2019-06-11 09:35 | disposition home or self-care (01) ==
LOC: M SDC 05:54
PROVIDERS: ATTEND Internal Medicine Gastroenterology
DX: K80.50 Calculus of bile duct without cholangitis or cholecystitis without obstruction (principal); R94.5 Abnormal results of liver function studies; I11.9 Hypertensive heart disease without heart failure; E11.40 Type 2 diabetes mellitus with diabetic neuropathy, unspecified; R01.1 Cardiac murmur, unspecified; R00.1 Bradycardia, unspecified; G30.9 Alzheimer's disease, unspecified; F02.80 Dementia in other diseases classified elsewhere, unspecified severity, without behavioral disturbance, psychotic disturbance, mood disturbance, and anxiety; I71.2 Thoracic aortic aneurysm, without rupture; I73.9 Peripheral vascular disease, unspecified; Z87.891 Personal history of nicotine dependence; Z95.5 Presence of coronary angioplasty implant and graft; Z95.1 Presence of aortocoronary bypass graft; I25.10 Atherosclerotic heart disease of native coronary artery without angina pectoris; J44.9 Chronic obstructive pulmonary disease, unspecified; N40.0 Benign prostatic hyperplasia without lower urinary tract symptoms; M19.90 Unspecified osteoarthritis, unspecified site; L30.9 Dermatitis, unspecified; Z87.19 Personal history of other diseases of the digestive system; Z79.899 Other long term (current) drug therapy; Z79.82 Long term (current) use of aspirin
CPT/HCPCS: 43262; 43264; 74330; J2405; J3010; Q9967

== ENCOUNTER 2019-07-12 07:16 | Inpatient (IN) | payer MEDICARE, MEDICAID ==
[~2019-07-12] VITALS: Ht 190.5 cm; Wt 87.0 kg
[2019-07-12 07:42] LABS: BASO % 0.4 % (0.0-1.0); EOS # 0.3 10^3/uL (0.0-0.5); EOS % 4.7 % (0.0-3.0); HEMATOCRIT 38.1 % (42.0-52.0); HEMOGLOBIN 12.6 g/dl (13.5-17.5); LYMPH # 0.9 10^3/uL (1.5-5.0); LYMPH % 13.2 % (24.0-44.0); MEAN CORPUSCULAR HEMOGLOBIN 30.4 pg (27.0-33.0); MEAN CORPUSCULAR HGB CONC 33.1 g/dl (32.0-36.5); MONO # 0.6 10^3/uL (0.0-0.8); MONO % 9.1 % (0.0-5.0); NEUTROPHILS # 4.9 10^3/uL (1.5-8.5); NEUTROPHILS % 72.3 % (36.0-66.0); PLATELET COUNT, AUTOMATED 113 10^3/uL (150-450); RED BLOOD COUNT 4.14 10^6/uL (4.30-6.10); WHITE BLOOD COUNT 6.8 10^3/uL (4.0-10.0)
[2019-07-12] MEDS ORDERED: ARIP1TAB4 PO (07:43)
[2019-07-12] MEDS ORDERED: DOCU100C16 PO (07:43)
[2019-07-12] MEDS ORDERED: LACT10SO3 PO (07:43)
[2019-07-12] MEDS ORDERED: ATOR1TAB21 PO (07:43)
--- NOTE | 2019-07-12 07:46 | REPVR ---
PROCEDURE INFORMATION: Exam: CT Head Without Contrast Exam date and time: 07/12/2019 7:31 AM Age: 78 years old Clinical indication: Altered mental status/memory loss; Confusion or disorientation; Additional info: CVA - nursing interventions must not delay CT TECHNIQUE: Imaging protocol: Computed tomography of the head without contrast. Radiation optimization: All CT scans at this facility use at least one of these dose optimization techniques: automated exposure control; mA and/or kV adjustment per patient size (includes targeted exams where dose is matched to clinical indication); or iterative reconstruction. COMPARISON: No relevant prior studies available. FINDINGS: Brain: Low-attenuation area in the high left parietal lobe representing acute/subacute infarct. Moderate prominence of ventricles and sulci representing volume loss. Moderate small vessel ischemic changes are seen. There is no mass, midline shift, or mass effect. Santoyo-white matter differentiation is preserved. There is no evidence of hemorrhage. There is no extra-axial fluid collection. Basal cisterns are patent. Ventricles: See Brain Finding. Bones/joints: Unremarkable. No acute fracture. Sinuses: Visualized sinuses are unremarkable. No fluid levels. Mastoid air cells: Visualized mastoid air cells are well aerated. Soft tissues: Unremarkable. IMPRESSION: 1. Low-attenuation area in the high left parietal lobe representing acute/subacuteinfarct . 2. Moderate volume loss and small vessel ischemic changes. Electronically signed by: Lisa Mayorga On 07/12/2019 07:46:27 AM
[2019-07-12 07:51] LABS: INR 1.2; PROTHROMBIN TIME 14.9 SECONDS (11.8-14.0)
[2019-07-12 07:52] LABS: PARTIAL THROMBOPLASTIN TIME 34.3 SECONDS (25.0-38.4)
[2019-07-12] MEDS ORDERED: ASPIRIN 300 MG SUPP PR STA (07:52)
[2019-07-12 08:14] LABS: ALBUMIN 3.5 GM/DL (3.2-5.2); ALT/SGPT 31 U/L (12-78); BILIRUBIN,TOTAL 0.3 MG/DL (0.2-1.0); BLOOD UREA NITROGEN 32 MG/DL (7-18); CALCIUM LEVEL 8.3 MG/DL (8.8-10.2); CARBON DIOXIDE LEVEL 28 MEQ/L (21-32); CHLORIDE LEVEL 108 MEQ/L (98-107); CK-MB VALUE MASS 2.8 NG/ML (<3.6); CPK CREATINE PHOSPHOKINASE 152 U/L (39-308); CREATININE FOR GFR 1.28 MG/DL (0.70-1.30); GLOMERULAR FILTRATION RATE 57.6 (>35); GLUCOSE, FASTING 134 MG/DL (70-100); MB/CK RELATIVE INDEX 1.84 (< OR =4); POTASSIUM SERUM 3.9 MEQ/L (3.5-5.1); SODIUM LEVEL 141 MEQ/L (136-145); TOTAL PROTEIN 7.2 GM/DL (6.4-8.2); TROPONIN I < 0.02 NG/ML (< 0.10)
[2019-07-12] MEDS ORDERED: METR-265 PO (08:32)
[2019-07-12] MEDS ORDERED: CIPR-249 PO (08:32)
[2019-07-12] MEDS ORDERED: ENOXAPARIN 40 MG/0.4 ML SYRINGE (J1650) SC SCH (09:00)
--- NOTE | 2019-07-12 11:12 | REP ---
Portable chest, 07:32 a.m., single AP view with the the patient sitting: There are no comparisons. Lung ortiz are clear. Cardiac size is upper normal for AP positioning. The alexi, mediastinum, skeletal structures are unremarkable. There are sternotomy wires. Impression: No acute cardiopulmonary findings. Electronically Signed by Edy Bowman MD 07/12/2019 11:03 A
[2019-07-12] MEDS ORDERED: DEXTROSE 50% 50 ML SYRINGE IV PRN (12:15)
[2019-07-12] MEDS ORDERED: GLUCOSE 4 GM CHEW TABLET PO PRN (12:15)
[2019-07-12] MEDS ORDERED: GLUCAGON FOR INJ 1 MG VIAL (J1610) SC PRN (12:15)
[2019-07-12] MEDS: CLOPIDOGREL 75 MG TAB PO SCH (13:22)
[2019-07-12] MEDS: D5W/0.45% SODIUM CHLORIDE 1,000 ML IV SCH (13:23)
--- NOTE | 2019-07-12 13:23 | REP ---
Bilateral carotid artery duplex ultrasound: Peak flow velocity analysis: RIGHT LEFT ICA Peak flow velocity cm/sec 93.6 cm/sec occluded ICA Diastolic flow velocity cm/sec 26.1 cm/sec occluded ICA/CCA Ratio 1.36 cm/sec occluded ECA Peak flow velocity cm/sec 94.3 cm/sec 78.4 cm/sec CCA Peak flow velocity cm/sec 68.9 cm/sec 49.5 cm/sec The there is antegrade flow in the vertebral arteries bilaterally. 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 There is shallow atheromatous plaque in the left external carotid artery. There is no significant stenosis of the left external carotid artery. There is shallow atheromatous plaque in the right internal carotid artery and right external carotid artery. The peak flow velocities are normal. There is no significant stenosis in the right internal carotid artery or external carotid artery. Electronically Signed by Edy Bowman MD 07/12/2019 01:15 P
[2019-07-12] MEDS: HumaLOG INSULIN (NovoLOG) PER UNIT SC SCH ×2 (13:24→18:00)
[2019-07-12 14:25] VITALS: BP 210/110
[2019-07-12 15:37] VITALS: BP 158/78
[2019-07-12] MEDS ORDERED: LABETALOL HCL 100 MG/20 ML VIAL IV SCH (16:00)
[2019-07-12] MEDS ORDERED: LABETALOL HCL 100 MG/20 ML VIAL IV PRN (16:15)
[2019-07-12] MEDS: HALOPERIDOL 5 MG/ML VIAL (J1630) IV PRN (17:22)
--- NOTE | 2019-07-12 18:19 | HPEPDOC ---
General Date of Admission Jul 12, 2019 at 11:48 Date of Service: Jul 12, 2019 Attending Physician: ROXANA CARLISLE MD Chief Complaint The patient is a 78-year-old male admitted with a reason for visit of CVA. Source: Family (son) Exam Limitations: Clinical conditions, Dementia Timing/Duration: 24 hours Severity: Moderate Associated Symptoms: Other (right facial droop and R sided weakness) History of Present Illness 78 yo man with a history of advanced Alzheimer's dementia, HFrEF, CAD s/p CABG, COPD, HTN, HLD, DM1 who was brought into the ED by his son after he noticed him to have a right facial droop and some right leg and right arm weakness as well as inability to speak with mumbling after he last saw him at his baseline at 8.30pm at bedtime. His baseline state includes advanced dementia with some episodic agitation but full motor function with unassisted ambulation, however with frequent falls. His baseline mentation was previously verbal but confused. In the ED, initial vitals were 131/60, afebrile, breathing comfortably on room air. EKG was non ischemic, troponin negative, WBC 6.8, hgb 12.6, glucose 134, Cr 1.[address] head showed a left parietal lobe infarct. He had a severe right facial droop and was drooling and he was given rectal full dose aspirin. Dr. Forrester was called and recommended admission to medicine for subacute stroke as his onset of symptoms could not be corroborated so he did not receive tPA. By the time I evaluated him, his facial droop had improved tremendously and was very slight and he had full strength in all 4 extremities though he could not follow complex command that were beyond 1 step commands and continued to be non verbal with some mumbling and confused. The son corroborated that the confusion is his baseline and that he sometimes is restless and can get agitated. His NIHSS during my assessment was 10. Home Medications Scheduled Aripiprazole (Aripiprazole) 2 Mg Tablet, 2 MG PO QHS, (Reported) Aspirin (Aspir 81) 81 Mg Tablet., 81 MG PO DAILY, (Reported) Atorvastatin Calcium (Atorvastatin Calcium) 20 Mg Tablet, 20 MG PO QHS, (Reported) Ciprofloxacin HCl (Cipro) 500 Mg Tablet, 500 MG PO BID, (Reported) Prescribed 05/30/19 for obstructive jaundice; per son, still taking med Cyanocobalamin (Vitamin B-12) (Vitamin B-12) 500 Mcg Tablet, 1,000 MCG PO DAILY, (Reported) Donepezil HCl (Donepezil HCl) 10 Mg Tablet, 5 MG PO DAILY, (Reported) Insulin Detemir (Levemir) 100 Unit/1 Ml Vial, 16 UNITS SC QPM, (Reported) Insulin Human Lispro (Humalog) 100 Unit/1 Ml Vial, 1 DOSE SC QHS, (Reported) Per sliding scale Memantine HCl (Memantine HCl) 10 Mg Tablet, 10 MG PO BID, (Reported) Metronidazole (Metronidazole) 500 Mg Tablet, 500 MG PO BID, (Reported) Prescribed 05/30/19 for obstructive jaundice; per son, still taking med Scheduled PRN Docusate Sodium (Docusate Sodium) 100 Mg Capsule, 100 MG PO DAILY PRN for CONSTIPATION, (Reported) Lactulose (Lactulose) 10 Gm/15 Ml Solution, 30 ML PO DAILY PRN for CONSTIPATION, (Reported) Allergies Coded Allergies: No Known Allergies (Unverified , 06/11/19) Past Medical History Medical History Alzheimer's disease HFrEF COPD Vit B12 deficiency HTn DM1 Osteoarthritis history of intestinal obstruction Surgical History Appendectomy 2nd left toe amputation Endoscopy Colonoscopy Cataract surgery Family History Significant Family History: No pertinent family hx Social History * Smoker: Denies Alcohol: Denies Drugs: denies Recent Travel/Sick Contacts: Denies: Recent travel, Recent sick contacts Psychosocial History: Other (Alzheimer's dementia) Lives with his son who is the HCP. He moved from [facility] 1 year ago to lives with his son and his family. A-FIB/CHADSVASC A-FIB History Current/History of A-Fib/PAF?: No Current PO Anticoag Therapy: No Age/Risk Factor Scoring CHADSVASC: CHADSVASC Response (Comments) Value Age Risk Factor Age >/= 75 years old 2 Gender Risk Factor Male 0 Hx of CHF Yes 1 Hx of HTN Yes 1 Hx of Stroke/TIA/or VTE Yes 2 Hx of Diabetes Yes 1 Hx of Vascular Disease Yes 1 Total 8 Treatment Treatment ordered: NONE Reason Anticoagulant not given: Not indicated/[id number] Review of Systems Constitutional: Denies: Chills, Fever, Night Sweats Eyes: Denies: Pain, Vision change ENT: Denies: Head Aches, Ear Pain, Dysphagia Skin: Denies: Rash, Lesions, Breakdown Pulmonary: Denies: Dyspnea, Cough Cardiovascular: Denies: Chest Pain, Palpitations, Orthopnea, Paroxysmal Noc. Dyspnea, Lt Headedness Gastrointestinal: Denies: Nausea, Vomiting, Abdominal Pain, Diarrhea Genitourinary: Denies: Dysuria, Frequency, Incontinence, Retention Hematologic: Denies: Bruising, Bleeding Excessively Endocrine: Denies: Polydipsia, Polyphagia, Polyuria, Heat Intolerance, Cold Intolerance, Other Endocrine Sx Musculoskeletal: Denies: Neck Pain, Back Pain, Joint Pain, Muscle Pain, Spasms Neurological: Reports: Weakness, Incoordination, Change in speech, Confusion; Denies: Numbness, Seizures Psych: Reports: Mood Normal, Memory Issues Physical Examination General Exam: Positive: Alert, No Acute Distress Eye Exam: Positive: PERRLA, Conjunctiva & lids normal, EOMI; Negative: Sclera icteric ENT Exam: Positive: Atraumatic, Mucous membr. moist/pink, Pharynx Normal Neck Exam: Positive: Supple; Negative: JVD, thyromegaly Chest Exam: Positive: Clear to auscultation, Normal air movement Heart Exam: Positive: Rate Normal, Regular Rhythm, Normal S1, Normal S2; Negative: Murmurs, Rubs Abdomen Exam: Positive: Normal bowel sounds, Soft; Negative: Tenderness, Hepatospenomegaly Extremity Exam: Positive: Normal pulses; Negative: Clubbing, Cyanosis, Edema Skin Exam: Positive: Nl turgor and temperature, Other skin issue (some resolving eccymoses on both arms); Negative: Breakdown, Lesion Neuro Exam: Positive: Strength at 5/5 X4 ext, Normal Tone; Negative: Normal Speech (with severe what appears to be expressive aphasia where he attempts to speak and small sounds come out, with perceived understand), Cranial Nerves 3-12 NL (slight right facial droop, otherwise normal CN3,4,6,8,9,10) Psych Exam: Positive: Anxiety (restless, trying to stand up and wear his street clothes); Negative: Oriented x 3 Vital Signs Vital Signs Date Time Temp Pulse Resp B/P (MAP) Pulse Ox O2 Delivery O2 Flow Rate FiO2 07/12/19 15:37 158/78 (104) 07/12/19 14:25 98.3 84 20 97 Room Air Laboratory Data Labs 24H Laboratory Tests 2 07/12/19 07:28: Immature Granulocyte % (Auto) 0.3, Neutrophils (%) (Auto) 72.3H, Lymphocytes (%) (Auto) 13.2L, Monocytes (%) (Auto) 9.1H, Eosinophils (%) (Auto) 4.7H, Basophils (%) (Auto) 0.4, Neutrophils # (Auto) 4.9, Lymphocytes # (Auto) 0.9L, Monocytes # (Auto) 0.6, Eosinophils # (Auto) 0.3, Basophils # (Auto) 0.0, Nucleated Red Blood Cells % (auto) 0.0, Prothrombin Time 14.9H, Prothromb Time International Ratio 1.20, Activated Partial Thromboplast Time 34.3, Anion Gap 5L, Glomerular Filtration Rate 57.6, Calcium Level 8.3L, Total Bilirubin 0.3, Aspartate Amino Transf (AST/SGOT) 22, Alanine Aminotransferase (ALT/SGPT) 31, Alkaline Phosphatase 79, Total Creatine Kinase 152, Creatine Kinase MB 2.8, Creatine Kinase MB Relative Index 1.84, Troponin I < 0.02, Total Protein 7.2, Albumin 3.5, Albumin/Globulin Ratio 0.95L 07/12/19 07:49: Bedside Glucose (Misc Panel) 122H, POC Glucose (Misc Panel) 135H, POC Sodium (Misc Panel) 140, POC Potassium (Misc Panel) 3.9, POC Chloride (Misc Panel) 104, POC Total CO2 (Misc Panel) 25.0, POC Blood Urea Nitrogen (Misc Panel 31H, POC Ionized Calcium (Misc Panel) 4.9, POC Creatinine (Misc Panel) 1.2, POC Hematocrit (Misc Panel) 38.0 07/12/19 13:11: Bedside Glucose (Misc Panel) 143H CBC/BMP Laboratory Tests 07/12/19 07:28 Assessment/Plan 78 yo man with advanced Alzheimer's disease who is admitted for with a L parietal lobe CVA with R sided deficits and could not be corroborated to have been within the window for tPA therefore being medically managed with ASA and to start plavix when cleared for PO, with pending MRI/MRA brain with carotid doppler showing occluded left internal carotid. Fortunately he appears to be having some significant recovery of his R sided motor function. L parietal lobe CVA: with initial severe R facial droop with drooling, R arm and R leg weakness as well as severe expressive aphasia -noncon head CT with showing L parietal lobe infarct -Neck doppler ultrasound showing total occlusion of left internal carotid, not intervenable per my discussion with Dr. Zambrano. Also had shallow artheroma tous plaque in the left external carotid without significant stenosis, as well as is in the right internal and external carotids for which she suggested a follow up ultrasound in 1 year. -pending MRI/MRA brain -s/p rectal ASA 325 -to start ASA/plavix but NPo until speech evaluation -Q4H neurocheck and vital signs, was Q2H most of the day with now stable exam -PT, OT consults -ARU screening consult -Speech and swallow evaluation request -Lipitor 40 to be started once he is cleared to take PO -For now placed on D51/2NS while NPO -Neurology consulted, Dr. Forrester's patient for Alzheimer's in the outpatient setting Alzheimer's disease: At baseline is confused, restless and sometimes agitated. Per son's description, sundowns often. -1:1 sitter for fall risk and restlessness -Haldol 2mg IV BID PRN for agitation -all PO meds are on hold pending swallow evaluation DM1: -Hold long acting insulin while NPO -D51/2NS -SSI -hypoglycemia protocol -FSBG Q6H Hypertension: -PRN labetalol 10Q6H for SBP>180, with some permissive hypertension in the setting of an acute CVA Thrombocytopenia: -Mild, will monitor DVT ppx: SCDs and TEDs, dc the lovenox with platelets of 100 Plan / VTE VTE Prophylaxis Ordered?: Yes ROXANA CARLISLE MD Jul 12, 2019 17:48
[2019-07-12 20:00] VITALS: BP 160/80
[2019-07-12] MEDS: ATORVASTATIN 20 MG TAB PO SCH (20:59)
[2019-07-12] MEDS ORDERED: ATORVASTATIN 20 MG TAB PO SCH (21:00)
[2019-07-13] VITALS (7 sets, daily range): BP systolic 107–176; BP diastolic 55–82
[2019-07-13] MEDS: D5W/0.45% SODIUM CHLORIDE 1,000 ML IV SCH ×2 (03:00→17:43)
[2019-07-13 05:52] LABS: HEMATOCRIT 34.5 % (42.0-52.0); HEMOGLOBIN 11.5 g/dl (13.5-17.5); MEAN CORPUSCULAR HEMOGLOBIN 29.9 pg (27.0-33.0); MEAN CORPUSCULAR HGB CONC 33.3 g/dl (32.0-36.5); MEAN CORPUSCULAR VOLUME 89.8 fl (80.0-96.0); PLATELET COUNT, AUTOMATED 103 10^3/uL (150-450); RED BLOOD COUNT 3.84 10^6/uL (4.30-6.10); WHITE BLOOD COUNT 6.1 10^3/uL (4.0-10.0)
[2019-07-13 06:13] LABS: ALBUMIN 3.1 GM/DL (3.2-5.2); ALT/SGPT 28 U/L (12-78); BILIRUBIN,TOTAL 0.7 MG/DL (0.2-1.0); BLOOD UREA NITROGEN 25 MG/DL (7-18); CALCIUM LEVEL 7.8 MG/DL (8.8-10.2); CARBON DIOXIDE LEVEL 27 MEQ/L (21-32); CHLORIDE LEVEL 108 MEQ/L (98-107); CHOLESTEROL LEVEL 122 MG/DL (<200); CHOLESTEROL RISK RATIO 1.848 (<5); GLOMERULAR FILTRATION RATE > 60.0 (>35); GLUCOSE, FASTING 170 MG/DL (70-100); HDL CHOLESTEROL 66 MG/DL (>40); LDL CHOLESTEROL 44 MG/DL (<100); MAGNESIUM LEVEL 1.8 MG/DL (1.8-2.4); NON-HDL-C 56 MG/DL; POTASSIUM SERUM 3.8 MEQ/L (3.5-5.1); SODIUM LEVEL 139 MEQ/L (136-145); TOTAL PROTEIN 6.3 GM/DL (6.4-8.2); TRIGLYCERIDES LEVEL 59 MG/DL (<150)
[2019-07-13] MEDS: HumaLOG INSULIN (NovoLOG) PER UNIT SC SCH ×4 (06:28→18:00)
[2019-07-13] MEDS: ASPIRIN 81 MG CHEW TABLET PO SCH (09:00)
[2019-07-13] MEDS: CLOPIDOGREL 75 MG TAB PO SCH (09:00)
--- NOTE | 2019-07-13 11:48 | IPNPDOC ---
Text Note Date of Service The patient was seen on 07/13/19. NOTE Physical Examination General: Alert, No Acute Distress Eyes: PERRLA, Conjunctiva & lids normal, EOMI, PERRLA ENT: Atraumatic, Mucous membr. moist/pink, Pharynx Normal Neck: Supple, no JVD, thyromegaly Chest: Clear to auscultation, Normal air movement Heart: Rate Normal, Regular Rhythm, Normal S1, Normal S2, no noted Murmurs or Rubs Abdomen: Normal bowel sounds, Soft, NTND Extremity: Normal pulses, no Edema Skin: Nl turgor and temperature Neuro Exam:Strength at 5/5 X4 ext, Normal Tone, continues to have severe what appears to be expressive aphasia where he attempts to speak and small sounds come out, with perceived understanding of commands, mild right facial droop, oth erwise normal CN3,4,6,8,9,10 Psych Exam: restless, trying to stand up, not able to corroborate orientation. Labs: Reviewed Assessment: 78 yo man with advanced Alzheimer's disease who is admitted for with a L parietal lobe CVA with R sided deficits and could not be corroborated to have been within the window for tPA therefore being medically managed with ASA with MRI/MRA brain with carotid doppler showing occluded left internal carotid. Fortunately he appears to be having some significant recovery of his R sided motor function. L parietal lobe CVA: with initial severe R facial droop with drooling, R arm and R leg weakness as well as severe expressive aphasia -noncon head CT with showing L parietal lobe infarct -Neck doppler ultrasound showing total occlusion of left internal carotid, not intervenable per my discussion with Dr. Zambrano. Also had shallow artheromatous plaque in the left external carotid without significant stenosis, as well as is in the right internal and external carotids for which she suggested a follow up ultrasound in 1 year. -pending MRI/MRA brain -s/p rectal ASA 325 -to start ASA/plavix but NPo until speech evaluation. Will give rectal ASA today. -Q4H neurocheck and vital signs -PT, OT consults -ARU screening consult -Speech and swallow evaluation request -Lipitor 40 to be started once he is cleared to take PO -For now placed on D51/2NS while NPO -Neurology consulted, Dr. Forrester's patient for Alzheimer's in the outpatient setting Alzheimer's disease: At baseline is confused, restless and sometimes agitated. Per son's description, sundowns often. -1:1 sitter for fall risk and restlessness -Haldol 2mg IV BID PRN for agitation -all PO meds are on hold pending swallow evaluation DM1: -Hold long acting insulin while NPO -D51/2NS -SSI -hypoglycemia protocol -FSBG Q6H Hypertension: -PRN labetalol 10Q6H for SBP>180, with some permissive hypertension in the setting of an acute CVA Thrombocytopenia: -Mild, will monitor DVT ppx: SCDs and TEDs, dc the lovenox with platelets of 100 VS,Fishbone, I+O VS, Fishbone, I+O Laboratory Tests 07/13/19 05:23 Vital Signs Date Time Temp Pulse Resp B/P (MAP) Pulse Ox O2 Delivery O2 Flow Rate FiO2 07/13/19 07:42 98.6 70 18 144/74 (97) 96 Room Air I&O- Last 24 Hours up to 6 AM 07/13/19 06:00 Intake Total 1175 ml Output Total 0 ml Balance 1175 ml ROXANA CARLISLE MD Jul 13, 2019 11:48
[2019-07-13] MEDS ORDERED: ASPIRIN 300 MG SUPP PR ONE (13:00)
--- NOTE | 2019-07-13 13:30 | REPVR ---
PROCEDURE INFORMATION: Exam: MR Head Without Contrast Exam date and time: 07/13/2019 11:48 AM Age: 78 years old Clinical indication: Altered mental status/memory loss; Confusion or disorientation; Additional info: CVA TECHNIQUE: Imaging protocol: MR of the head without contrast. COMPARISON: CT Head without contrast 07/12/2019 7:29 AM FINDINGS: Brain: Examination reveals an approximately 5.5 x 3.5 cm area of restricted diffusion in the left frontal lobe consistent with acute infarction in the anterior distribution of the left middle cerebral artery. Small 8 mm focus of restricted diffusion is seen in the left posterior parietal subcortical white matter consistent with acute lacunar infarction axial image 19. No acute hemorrhage, mass or midline shift is seen. Stable chronic focal infarction in the left parieto-occipital lobe. There is mild patchy increased T2 signal intensity within the bilateral cerebral periventricular white matter, consistent with chronic microvascular ischemic changes. There is mild diffuse cerebral atrophy present, consistent with this patient's age. Chronic lacunar infarction is seen in the right cerebellar hemisphere. Ventricles: The ventricular system demonstrates mild diffuse compensatory enlargement. Bones/joints: Unremarkable. Soft tissues: Unremarkable. Sinuses: Normal as visualized. No acute sinusitis. Mastoid air cells: Normal as visualized. No mastoid effusion. Orbits: Unremarkable. IMPRESSION: 1. Examination reveals an approximately 5.5 x 3.5 cm area of restricted diffusion in the left frontal lobe consistent with acute infarction in the anterior distribution of the left middle cerebral artery. Small 8 mm focus of restricted diffusion is seen in the left posterior parietal subcortical white matter consistent with acute lacunar infarction axial image 19. No acute hemorrhage, mass or midline shift is seen. 2. Stable chronic focal infarction in the left parieto-occipital lobe. Electronically signed by: Kyler Wilhelm On 07/13/2019 13:30:01 PM
--- NOTE | 2019-07-13 13:36 | REPVR ---
PROCEDURE INFORMATION: Exam: MR Angiogram Head Without Contrast, Arteries Exam date and time: 07/13/2019 11:48 AM Age: 78 years old Clinical indication: Weakness; Additional info: CVA TECHNIQUE: Imaging protocol: MR angiogram head without contrast. Exam focused on the arteries. COMPARISON: CT Head without contrast 07/12/2019 7:29 AM [place] - Duplex,carotid (complete) 07/12/2019 12:49:30 PM FINDINGS: Right internal carotid artery: No stenosis. No occlusion. No aneurysm. Right anterior cerebral artery: Unremarkable. No occlusion or significant stenosis. No aneurysm. Right middle cerebral artery: Unremarkable. No occlusion or significant stenosis. No aneurysm. Right posterior cerebral artery: Unremarkable. No occlusion or significant stenosis. No aneurysm. Right vertebral artery: Unremarkable. No occlusion or significant stenosis. No aneurysm. Left internal carotid artery: There is complete occlusion of the left internal carotid artery. This was also noted on the prior carotid Doppler. Left anterior cerebral artery: There is filling of the left anterior cerebral artery from a patent [id number]. Left middle cerebral artery: There is flow in the M1 segment of the left middle cerebral artery from a patent [id number]. There is complete occlusion of the anterior division of the left middle cerebral artery. Left posterior cerebral artery: Unremarkable. No occlusion or significant stenosis. No aneurysm. Left vertebral artery: Unremarkable. No occlusion or significant stenosis. No aneurysm. Basilar artery: Unremarkable. No occlusion or significant stenosis. No aneurysm. IMPRESSION: 1. There is complete occlusion of the left internal carotid artery. This was also noted on the prior carotid Doppler. 2. There is flow in the M1 segment of the left middle cerebral artery from a patent [id number]. There is complete occlusion of the anterior division of the left middle cerebral artery. 3. There is filling of the left anterior cerebral artery from a patent [id number]. Electronically signed by: Kyler Wilhelm On 07/13/2019 13:35:50 PM
[2019-07-13] MEDS: HALOPERIDOL 5 MG/ML VIAL (J1630) IV PRN (19:59)
[2019-07-13] MEDS: ATORVASTATIN 20 MG TAB PO SCH (20:00)
--- NOTE | 2019-07-13 20:44 | ECGEPIP ---
[facility] - ED Test Date: 2019-07-12 Pat Name: EDITH DOVE Department: Room: - Gender: Male Sample Driller: : 1940 Requested By: KWADWO Barraza Order Number: [id number] Reading MD: Niurka Singh Measurements Intervals Copen Rate: 63 P: 65 NC: 187 QRS: -12 QRSD: 121 T: 62 QT: 414 QTc: 425 Interpretive Statements SINUS RHYTHM SEPTAL MYOCARDIAL INFARCTION, OF INDETERMINATE AGE NSTTW abnormalities NO PRIOR Electronically Signed on 07-13-2019 20:43:50 EST by Niurka Singh
--- NOTE | 2019-07-13 21:25 | CR ---
DATE OF CONSULTATION: 07/13/2019 REFERRING PHYSICIAN: Jocelyne Delgado MD REASON FOR CONSULTATION: Aphasia and history of dementia. HISTORY OF PRESENT ILLNESS: Cristian Ramirez is an 78-year-old man with history of Alzheimer's dementia, coronary artery disease, COPD, hypertension, diabetes who had endoscopy in May 2019. A few days after endoscopy, the patient stopped taking his aspirin as he was arguing with his son that he was taking too many pills. He has not restarted taking his aspirin. He went to bed the night before and had no problems other than his baseline dementia. Yesterday morning when he woke up his children noted altered speech. He was drooling on the right side of his mouth and his right side of face was drooping. He had numbness, weakness of right arm and leg. He was brought to [facility]. His right facial strength, his right arm and leg weakness all improved by the afternoon, 2:30 or 3 p.m. He continues to have difficulty with his speech. He has history of baseline dementia. He has receptive and expressive difficulty with speech. DIAGNOSTIC STUDIES: Carotid ultrasound showed occlusion of left internal carotid artery with right internal carotid artery atherosclerosis. CT scan of head showed old left parietal lobe infarct. He also had head trauma in the past. It is unclear to me whether this is the same encephalomalacia that he had from his old head injury in past. He was unable to do the MRI scan of brain due to ing yesterday. MEDICATIONS: - Abilify 2 mg by mouth nightly - atorvastatin 20 mg by mouth daily - ciprofloxacin 500 mg by mouth twice a day - Aricept 10 mg by mouth daily - Namenda 10 mg by mouth twice a day - metronidazole 500 mg by mouth twice a day - insulin Levemir 16 units subcutaneous daily - insulin Humalog sliding scale ALLERGIES: None. PAST MEDICAL HISTORY: Alzheimer's dementia, COPD, vitamin B12 deficiency, hypertension, diabetes, osteoarthritis, appendectomy, endoscopy, colonoscopy, cataract surgery, coronary artery disease. FAMILY HISTORY: Noncontributory. SOCIAL HISTORY: Denies smoking, alcohol or illicit drugs. He lives with his son. REVIEW OF SYSTEMS: All systems were reviewed and found to be noncontributory except as mentioned in history of present illness. PHYSICAL EXAMINATION: Temperature 98.6, pulse 70,, respiratory rate 18, blood pressure 144/74, 96% saturation on room air. Heart: Regular rate and rhyhm. Lungs: Clear to auscultation. Abdomen: Soft, nontender, nondistended. No pedal edema. No musculoskeletal abnormalities. No rash or signs of meningeal irritation. The patient is alert, awake, but oriented to self only. He has receptive and expressive aphasia. Memory examination could not be performed. Extraocular muscles are intact. He has right-sided upper motor neuron type facial weakness affecting right lower face. Tongue and uvula are midline. 5/5 strength in all four extremities. Deep tendon reflexes are 1+ in arms and knees and absent at ankles. He has decreased sensation in his feet. He is able to stand up without assistance. His gait is mildly unsteady. ASSESSMENT: 1. Suspected new left frontal and parietal acute ischemic stroke. 2. Occlusion of left internal carotid artery with right carotid artery atherosclerosis. 3. Alzheimer's dementia and delirium. PLAN: 1. I emphasized compliance with taking aspirin. He had stopped taking aspirin 3 weeks ago. 2. Aspirin 81 mg by mouth daily and Lipitor 20 mg by mouth daily. 3. MRI brain. 4. Aricept 5 mg by mouth daily and Namenda 10 mg by mouth daily. I will double check the dose of his Aricept, whether it is 5 or 10 mg on outpatient basis. 5. Abilify 2 mg by mouth nightly to decrease delirium and sundowning. It may also help his mood. 6. Physical and occupational therapy. 7. Follow with our office in 2-4 weeks after hospital discharge.
[2019-07-14] VITALS (7 sets, daily range): BP systolic 115–159; BP diastolic 58–90
[2019-07-14] MEDS: D5W/0.45% SODIUM CHLORIDE 1,000 ML IV SCH (05:35)
[2019-07-14] MEDS: HumaLOG INSULIN (NovoLOG) PER UNIT SC SCH ×5 (06:00→20:14)
[2019-07-14] MEDS: CLOPIDOGREL 75 MG TAB PO SCH (09:00)
[2019-07-14] MEDS: ASPIRIN 81 MG CHEW TABLET PO SCH (09:00)
--- NOTE | 2019-07-14 14:41 | IPNPDOC ---
Text Note Date of Service The patient was seen on 07/14/19. NOTE Patient was seen and examined this morning with the son at the bedside. Physical Examination General: Alert, No Acute Distress Eyes: PERRLA, Conjunctiva & lids normal, EOMI, PERRLA ENT: Atraumatic, Mucous membr. moist/pink, Pharynx Normal Neck: Supple, no JVD, thyromegaly Chest: Clear to auscultation, Normal air movement Heart: Rate Normal, Regular Rhythm, Normal S1, Normal S2, no noted Murmurs or Rubs Abdomen: Normal bowel sounds, Soft, NTND Extremity: Normal pulses, no Edema Skin: Nl turgor and temperature Neuro Exam:Strength at 5/5 X4 ext, no facial droop. Tongue is midline, slight dysarthria. Psych Exam: restless, trying to stand up, not able to corroborate orientation. Assessment: 78 yo man with advanced Alzheimer's disease who is admitted for with a L pa rietal lobe CVA with R sided deficits and could not be corroborated to have been within the window for tPA therefore being medically managed with ASA with MRI/MRA brain with carotid doppler showing occluded left internal carotid. Fortunately he appears to be having some significant recovery of his R sided motor function. 1. L parietal lobe CVA: with initial severe R facial droop with drooling, R arm and R leg weakness as well as severe expressive aphasia. Neck doppler ultrasound showing total occlusion of left internal carotid, not intervenable per discussion with Dr. Zambrano. Also had shallow artheromatous plaque in the left external carotid without significant stenosis, MRI of the brain reviewed yet. The patient was seen by speech is fluent has been started on aspirin and Plavix. Continue statins. Continue permissive hypertension right now. Continue aspiration precautions. Dr. Forrester from neurology already seen the patient. Appreciate his consult. PT, OT consult and possible rehabilitation placement. 2. Alzheimer's disease: At baseline is confused, restless and sometimes agitated. Per son's description, sundowns often. Under [address] Maintain sleep hygiene. 3. DM1: Total hyperplastic drugs and continue to progress drugs and continue sliding scale insulin. 4. Hypertension. Maintain blood pressure>180, with some permissive hypertension in the setting of an acute CVA for the first 48 hours to tomorrow. DVT ppx: SCDs and TEDs PT, OT consult Case management consult Likely discharge in the next 24-48 hours to rehabilitation VS,Fishbone, I+O VS, Fishbone, I+O Vital Signs Date Time Temp Pulse Resp B/P (MAP) Pulse Ox O2 Delivery O2 Flow Rate FiO2 07/14/19 12:00 99.2 60 19 148/69 (95) 99 Room Air 07/13/19 16:05 I&O- Last 24 Hours up to 6 AM 07/14/19 06:00 Intake Total 1725 ml Output Total 0 ml Balance 1725 ml BURT GOFF MD Jul 14, 2019 14:41
[2019-07-14] MEDS: ATORVASTATIN 20 MG TAB PO SCH (20:14)
--- NOTE | 2019-07-14 21:13 | ECHO ---
DATE OF PROCEDURE: 07/14/2019 REFERRING PHYSICIAN: Dr. Delgado INDICATION: CVA Height 191 cm, weight 91 kg. DIMENSIONS: IVS: 1.2 LV: 6.1 LVPW: 1.1 LA: 5.7 Aorta: 3.6 RV: 4.1 Left atrial volume index: 43 Mitral E wave velocity: 69 A wave: 90 E prime septal: 5.0 E prime lateral: 7.7 FINDINGS: The study is of fair technical quality. The patient is in sinus rhythm. Left ventricle is mildly dilated. There is mild left ventricular hypertrophy. There appears to be septal wall motion abnormality but overall preserved left ventricular (LV) systolic function. I estimate left ventricular ejection fraction (LVEF) approximately 55-60%. Right ventricle appears dilated and hypokinetic. Both atria are severely enlarged. Aortic valve is heavily sclerotic. There is mild restriction of cusp mobility. Mitral valve also exhibits mild degenerative abnormalities with minimal mitral annular calcifications. Mobility of leaflets is preserved. Tricuspid valve appears normal. Pulmonic valve was not seen. No pericardial effusion is noted. Inferior vena cava was not visualized. Aortic root appears normal. Aortic arch appears grossly normal based on very limited views. Doppler interrogation of aortic valve reveals no insufficiency and mild stenosis with mean gradient 13 mmHg. Calculated MAURIZIO was 1.6 centimeters squared. There is mild mitral insufficiency and trace tricuspid insufficiency. Quality of TR jet was not sufficient to estimate pulmonary artery pressure. Mitral inflow pattern and tissue Doppler imaging of mitral annulus revealed grade 1 diastolic dysfunction. CONCLUSIONS: 1. Study is of fair technical quality, the patient is in sinus rhythm. 2. Mildly dilated left ventricle with mild left ventricular hypertrophy (LVH), subtle septal wall motion abnormality and overall preserved left ventricular (LV) systolic function. Grade 1 diastolic dysfunction. 3. Prominent aortic sclerosis with mild stenosis and no insufficiency. 4. No additional hemodynamically significant valvular disease. 5. Unable to estimate central venous pressure and pulmonary artery pressure. 6. Severe biatrial enlargement. COMMENT: Subacute bacterial endocarditis (SBE) prophylaxis is not recommended. MTDD
[2019-07-14] MEDS: HALOPERIDOL 5 MG/ML VIAL (J1630) IV PRN (22:07)
[2019-07-15] VITALS (7 sets, daily range): BP systolic 110–139; BP diastolic 55–80
[2019-07-15 05:31] LABS: HEMATOCRIT 34.6 % (42.0-52.0); HEMOGLOBIN 11.7 g/dl (13.5-17.5); MEAN CORPUSCULAR HEMOGLOBIN 30.2 pg (27.0-33.0); MEAN CORPUSCULAR HGB CONC 33.8 g/dl (32.0-36.5); MEAN CORPUSCULAR VOLUME 89.4 fl (80.0-96.0); RED BLOOD COUNT 3.87 10^6/uL (4.30-6.10); WHITE BLOOD COUNT 6.3 10^3/uL (4.0-10.0)
[2019-07-15 05:52] LABS: BLOOD UREA NITROGEN 18 MG/DL (7-18); CALCIUM LEVEL 8.5 MG/DL (8.8-10.2); CARBON DIOXIDE LEVEL 26 MEQ/L (21-32); CHLORIDE LEVEL 103 MEQ/L (98-107); CREATININE FOR GFR 1.15 MG/DL (0.70-1.30); GLOMERULAR FILTRATION RATE > 60.0 (>35); GLUCOSE, FASTING 122 MG/DL (70-100); POTASSIUM SERUM 3.7 MEQ/L (3.5-5.1); SODIUM LEVEL 134 MEQ/L (136-145)
[2019-07-15 06:18] LABS: PLATELET COUNT, AUTOMATED 94 10^3/uL (150-450)
[2019-07-15] MEDS: ASPIRIN 81 MG CHEW TABLET PO SCH (08:04)
[2019-07-15] MEDS: CLOPIDOGREL 75 MG TAB PO SCH (08:04)
[2019-07-15] MEDS: HumaLOG INSULIN (NovoLOG) PER UNIT SC SCH ×4 (08:04→20:10)
--- NOTE | 2019-07-15 11:55 | IPNPDOC ---
Text Note Date of Service The patient was seen on 07/15/19. NOTE Patient was seen and examined this morning, no family member at the bedside. As per the sitter. The patient was moving all the limbs and in fact went up with help to the washroom as well Physical Examination General: Alert, No Acute Distress Eyes: PERRLA, Conjunctiva & lids normal, EOMI, PERRLA ENT: Atraumatic, Mucous membr. moist/pink, Pharynx Normal Neck: Supple, no JVD, thyromegaly Chest: Clear to auscultation, Normal air movement Heart: Rate Normal, Regular Rhythm, Normal S1, Normal S2, no noted Murmurs or Rubs Abdomen: Normal bowel sounds, Soft, NTND Extremity: Normal pulses, no Edema Skin: Nl turgor and temperature Neuro Exam:Strength at 5/5 X4 ext, no facial droop. Tongue is midline, slight dysarthria. Psych Exam: restless, trying to stand up, not able to corroborate orientation. Labs reviewed, radiology reviewed Assessment: 78 yo man with advanced Alzheimer's disease who is admitted for with a L parietal lobe CVA with R sided deficits and could not be corroborated to have been within the window for tPA therefore being medically managed with ASA with MRI/MRA brain with carotid doppler showing occluded left internal carotid. Fortunately he appears to be having significant recovery of his R sided motor function. 1. Left parietal lobe CVA: with initial severe right facial droop with drooling, right arm and right leg weakness as well as severe expressive aphasia. Neck doppler ultrasound showing total occlusion of left internal carotid, not inte rvenable per discussion with Dr. Zambrano by our team. 2-D echo reviewed. No intracardiac thrombus or severe hypokinesia. EKG sinus rhythm. The patient was seen by speech is fluent and he skates patient's swallow and after that he has been started on aspirin and Plavix. Continue statins.Continue aspiration precautions. Dr. Forrester from neurology already seen the patient. Appreciate his consult. PT, OT consult and possible rehabilitation placement. 2. Alzheimer's disease: At baseline is confused, restless and sometimes agitated. Per son's description, sundowns often. Under [address] Maintain sleep hygiene. 3. DM1: Continue holding oral hypoglycemics and continue sliding scale insulin. 4. Hypertension. All the antihypertensive medications on hold and the patient is still maintaining a blood pressure in 130s to 140s. No need of restarting any antihypertensive medications DVT prophylaxis PT, OT consult Case management consult for possible placement Likely discharge in the next 24-48 hours to rehabilitation as per my discussion with the director social welfare's Mirlande DONIS, I+O Mirlande DONIS I+O Laboratory Tests 07/15/19 05:01 Vital Signs Date Time Temp Pulse Resp B/P (MAP) Pulse Ox O2 Delivery O2 Flow Rate FiO2 07/15/19 07:16 99.2 61 18 124/59 (80) 95 Room Air 07/13/19 16:05 I&O- Last 24 Hours up to 6 AM 07/15/19 06:00 Intake Total 250 ml Output Total 0 ml Balance 250 ml UBRT GOFF MD Jul 15, 2019 11:55
[2019-07-15] MEDS ORDERED: ACETAMINOPHEN TAB 650MG DOSE (2X325MG) PO PRN (19:15)
[2019-07-15] MEDS: ATORVASTATIN 20 MG TAB PO SCH (20:09)
--- NOTE | 2019-07-15 20:33 | REP ---
CHEST, SINGLE VIEW: Single view of the chest is performed and compared to prior study of 07/12/2019. There is no acute infiltrate. Heart is upper limits of normal in size and unchanged. There is some tortuosity of the thoracic aorta. Mediastinal silhouette is unchanged. Multiple sternal wires are present. IMPRESSION: No acute pulmonary disease. Electronically Signed by Edy Santoyo MD 07/16/2019 03:32 P
[2019-07-16 04:00] VITALS: BP 124/60
[2019-07-16 05:28] LABS: HEMATOCRIT 33.7 % (42.0-52.0); HEMOGLOBIN 11.5 g/dl (13.5-17.5); MEAN CORPUSCULAR HEMOGLOBIN 30.3 pg (27.0-33.0); MEAN CORPUSCULAR HGB CONC 34.1 g/dl (32.0-36.5); MEAN CORPUSCULAR VOLUME 88.7 fl (80.0-96.0); WHITE BLOOD COUNT 6.5 10^3/uL (4.0-10.0)
[2019-07-16 05:35] LABS: PLATELET COUNT, AUTOMATED 94 10^3/uL (150-450)
[2019-07-16 05:47] LABS: CALCIUM LEVEL 7.9 MG/DL (8.8-10.2); CREATININE FOR GFR 1.3 MG/DL (0.70-1.30); GLOMERULAR FILTRATION RATE 56.5 (>35); POTASSIUM SERUM 3.7 MEQ/L (3.5-5.1)
[2019-07-16 06:28] LABS: APPEARANCE, URINE CLEAR (CLEAR); BACTERIA, URINE AUTO NEGATIVE (NEGATIVE); BILIRUBIN, URINE AUTO NEGATIVE (NEGATIVE); BLOOD, URINE BLOOD 1+ (NEGATIVE); COLOR, URINE AMBER (YELLOW); GLUCOSE, URINE (UA) AUTO 1+ mg/dL (NEGATIVE); KETONE, URINE AUTO NEGATIVE (NEGATIVE); LEUKOCYTE ESTERASE, URINE AUTO 1+ (NEGATIVE); MUCUS, URINE SMALL (NEGATIVE); NITRITE, URINE AUTO NEGATIVE (NEGATIVE); PROTEIN, URINE AUTO NEGATIVE (NEGATIVE); RBC, URINE AUTO 1 /HPF (0-3); SPECIFIC GRAVITY URINE AUTO 1.019 (1.002-1.035); SQUAMOUS EPITHELIAL CELL UR AU 0 /HPF (0-6); WBC, URINE AUTO 24 /HPF (0-3)
[2019-07-16 08:00] VITALS: BP 118/60
[2019-07-16 08:33] LABS: C REACTIVE PROTEIN QUANTITATIV 3.5 MG/DL (0.00-0.30)
[2019-07-16] MEDS: CLOPIDOGREL 75 MG TAB PO SCH (09:12)
[2019-07-16] MEDS: HumaLOG INSULIN (NovoLOG) PER UNIT SC SCH ×2 (09:12→12:57)
[2019-07-16] MEDS: ASPIRIN 81 MG CHEW TABLET PO SCH (09:12)
[2019-07-16] MEDS ORDERED: CLOP75TA2 PO (11:17)
--- NOTE | 2019-07-16 11:34 | DS.PDOC ---
Discharge Summary General Date of Admission Jul 12, 2019 at 11:48 Date of Discharge 07/16/2019 Attending Physician: BURT GOFF MD Specialist/Consultants Involve: JONO FORRESTER MD Discharge Summary PROCEDURES PERFORMED DURING STAY: Echocardiogram ADMITTING DIAGNOSES: 1. Left parietal lobe ischemic stroke 2. Alzheimers dementia 3. Insulin-dependent Diabetes mellitus DISCHARGE DIAGNOSES: 1. Left parietal lobe ischemic stroke 2. Alzheimers dementia 3. Insulin-dependent Diabetes mellitus COMPLICATIONS/CHIEF COMPLAINT: Right facial droop, right leg/arm weakness, inability to speak HOSPITAL COURSE: This is in 78-year-old man with advanced Alzheimer's disease who was brought into the emergency department by his son after the patient was noted to have a right facial droop, right leg/right arm weakness, as well as the inability to speak with mumbling. The last time the patient was noted to be at his baseline was at 8.30pm the previous evening. His baseline state includes advanced dementia with some episodic agitation but full motor function with unassisted ambulation, however with frequent falls. His baseline mentation was previously verbal but in the emergency department he was found to be somewhat confused. Due to having severe right facial droop with drooling, he was given full dose of rectal aspirin. CT of the head showed a left parietal lobe infarct. Dr. Forrester from neurology was consulted and recommended admission to medicine for subacute stroke; he was deemed to not be a candidate for TPA, as his onset of symptoms could not be corroborated. He was admitted to the medical floor for a left parietal lobe CVA with right-sided deficits and medically managed with ASA. He had significant recovery of his right sided motor function. He worked with physical therapy, and was deemed safe for discharge to acute rehabilitation. DISCHARGE MEDICATIONS: Please see below. ALLERGIES: Please see below. PHYSICAL EXAMINATION ON DISCHARGE: VITAL SIGNS: Please see below. GENERAL: Elderly male, alert and cooperative, no acute distress HEENT: Symmetric pinpoint pupils, extraocular eye movements intact, mucous membranes are moist NECK: Supple, no JVD, no thyromegaly CARDIOVASCULAR EXAMINATION: Regular rate and rhythm; no murmurs, gallops, or rubs RESPIRATORY EXAMINATION: Clear to auscultation bilaterally; no wheezes, rhonchi, or rales ABDOMINAL EXAMINATION: Normoactive bowel sounds, soft, nontender, nondistended EXTREMITIES: No bilateral lower extremity edema SKIN: Normal turgor and temperature NEUROLOGICAL EXAMINATION: Cranial nerves II through XII grossly intact. Tongue is midline. No facial droop noted. Some slight dysarthria, however he answers questions appropriately. Muscle strength is 5 out of 5 in all 4 extremities. Sensation is intact throughout. PSYCHIATRIC EXAMINATION: Mood and affect are appropriate LABORATORY DATA: Please see below. IMAGING: CT head without contrast done 07/12/2019: Low attenuation area in the high left parietal lobe presenting acute/subacute infarct. Moderate multivessel ischemic changes. No evidence of hemorrhage. Chest x-ray done 07/12/2019: Sternotomy wires, cardiac size upper limit of normal for AP positioning, lung ortiz are clear. No acute cardiopulmonary findings. Carotid duplex ultrasound done 07/12/2019: Left internal carotid artery is totally occluded, shallow atheromatous plaque in the left external carotid artery. Shallow atheromatous plaque in the right internal carotid artery and right external carotid artery with normal peak flow velocities. MRA brain without contrast done 07/13/2019: No occlusions in the right cerebral, vertebral, or carotid arteries. Complete occlusion of the left internal carotid artery, complete occlusion of the anterior division of the left middle cerebral artery. No other occlusion or significant stenosis noted. MRI brain without contrast done 07/13/2019: 5.5 x 3.5 cm area of restricted diffusion in the left frontal lobe consistent with acute infarction in the anterior distribution of the left middle cerebral artery. Small 8 mm focus of restricted diffusion in the left posterior parietal subcortical white matter consistent with acute lacunar infarction. Chronic microvascular ischemic changes. Stable, chronic focal infarction in the left parieto-occipital lobe. Portable Chest x-ray done 07/15/2019: No acute pulmonary disease. Echocardiogram done 07/14/2019: LVEF 55-60% with mild left ventricular hypertrophy. Right ventricle dilated and hypokinetic, both atria severely en larged. Aortic valve heavily sclerotic with mild restriction of cusp mobility PROGNOSIS: Fair ACTIVITY: As per physical therapy. DIET: Pured, per speech therapy DISCHARGE PLAN: Discharge to acute rehabilitation for stroke rehabilitation DISPOSITION: Stable. DISCHARGE INSTRUCTIONS: 1. Please emphasize compliance with taking aspirin. 2. Follow-up with neurology office within 2-4 weeks. 3. Abilify 2 mg by mouth nightly to decrease delirium and sundowning. 4. Continue with physical and occupational therapy. ITEMS TO FOLLOWUP ON ON OUTPATIENT: 1. Follow-up with neurology office within 2-4 weeks. DISCHARGE CONDITION: Stable. TIME SPENT ON DISCHARGE: Greater than 30 minutes. Vital Signs/I&Os Vital Signs Date Time Temp Pulse Resp B/P (MAP) Pulse Ox O2 Delivery O2 Flow Rate FiO2 07/16/19 08:00 98.9 62 18 118/60 (79) 97 Room Air 07/13/19 16:05 I&O- Last 24 Hours up to 6 AM 07/16/19 06:00 Intake Total 1440 ml Output Total 100 ml Balance 1340 ml Laboratory Data Labs 24H Laboratory Tests 2 07/15/19 11:55: Bedside Glucose (Misc Panel) 149H 07/15/19 17:20: Bedside Glucose (Misc Panel) 308H 07/15/19 20:05: Bedside Glucose (Misc Panel) 176H 07/16/19 05:08: Nucleated Red Blood Cells % (auto) 0.0, Immature Platelet Fraction 2.2, Anion Gap 6L, Glomerular Filtration Rate 56.5, Calcium Level 7.9L, C-Reactive Protein, Quantitative 3.50H 07/16/19 06:00: Urine Color MELYSSA, Urine Appearance CLEAR, Urine pH 5.0, Urine Specific [place] 1.019, Urine Protein NEGATIVE, Urine Glucose (Auto)(UA) 1+H, Urine Ketones (Auto) NEGATIVE, Urine Blood 1+H, Urine Nitrite NEGATIVE, Urine Bilirubin NEGATIVE, Urine Urobilinogen 2.0H, Urine Leukocyte Esterase (Auto) 1+H, Urine WBC (Auto) 24H, Urine RBC (Auto) 1, Urine Hyaline Casts (Auto) 0, Urine Bacteria (Auto) NEGATIVE, Urine Squamous Epithelial Cells 0, Urine Mucus (Auto) SMALL, Urine Sperm (Auto) CBC/BMP Laboratory Tests 07/16/19 05:08 FSBS Laboratory Tests Test 07/15/19 11:55 07/15/19 17:20 07/15/19 20:05 Range/Units Bedside Glucose (Misc Panel) 149 308 176 83-110 MG/DL Microbiology Microbiology 07/16/19 Urine Culture, Received Pending 07/15/19 Blood Culture, Received Pending 07/15/19 Blood Culture, Received Pending Discharge Medications Scheduled Aripiprazole (Aripiprazole) 2 Mg Tablet, 2 MG PO QHS, (Reported) Aspirin (Aspir 81) 81 Mg Tablet.dr, 81 MG PO DAILY, (Reported) Atorvastatin Calcium (Atorvastatin Calcium) 20 Mg Tablet, 20 MG PO QHS, (Reported) Clopidogrel Bisulfate (Clopidogrel) 75 Mg Tablet, 75 MG PO DAILY Cyanocobalamin (Vitamin B-12) (Vitamin B-12) 500 Mcg Tablet, 1,000 MCG PO DAILY, (Reported) Donepezil HCl (Donepezil HCl) 10 Mg Tablet, 5 MG PO DAILY, (Reported) Insulin Detemir (Levemir) 100 Unit/1 Ml Vial, 16 UNITS SC QPM, (Reported) Insulin Human Lispro (Humalog) 100 Unit/1 Ml Vial, 1 DOSE SC QHS, (Reported) Per sliding scale Memantine HCl (Memantine HCl) 10 Mg Tablet, 10 MG PO BID, (Reported) Scheduled PRN Docusate Sodium (Docusate Sodium) 100 Mg Capsule, 100 MG PO DAILY PRN for CONSTIPATION, (Reported) Lactulose (Lactulose) 10 Gm/15 Ml Solution, 30 ML PO DAILY PRN for CONSTIPATION, (Reported) Allergies Coded Allergies: No Known Allergies (Unverified , 06/11/19) GME ATTESTATION GME ATTESTATION My faculty preceptor for this patient encounter was physically present during the encounter and was fully available. All aspects of the patient interview, examination, medical decision making process, and medical care plan development were reviewed and approved by the faculty preceptor. The faculty preceptor is aware and concurs with the plan as stated in the body of this note and will attest to such by his/her cosignature. ATTENDING NOTE Patient was seen and examined by me this morning with the residents. Agree with the above assessment and plan ANGELICA LEMOS D.O. Jul 16, 2019 11:34 BURT GOFF MD Jul 17, 2019 12:40
[2019-07-16 12:00] VITALS: BP 131/76
== END 2019-07-16 14:15 | DRG 65 ==
LOC: M ED 07:16 → M ED INP 11:48 → ENRESERVTM 13:43 → ENRESERVDT 13:43 → M PCU 14:20
PROVIDERS: ADMIT Internal Medicine; ATTEND Internal Medicine
DX: I63.512 Cerebral infarction due to unspecified occlusion or stenosis of left middle cerebral artery (principal); I50.32 Chronic diastolic (congestive) heart failure; G81.91 Hemiplegia, unspecified affecting right dominant side; G30.9 Alzheimer's disease, unspecified; F02.80 Dementia in other diseases classified elsewhere, unspecified severity, without behavioral disturbance, psychotic disturbance, mood disturbance, and anxiety; I25.10 Atherosclerotic heart disease of native coronary artery without angina pectoris; J44.9 Chronic obstructive pulmonary disease, unspecified; I11.0 Hypertensive heart disease with heart failure; I65.23 Occlusion and stenosis of bilateral carotid arteries; R29.810 Facial weakness; D69.6 Thrombocytopenia, unspecified; R47.01 Aphasia; E10.9 Type 1 diabetes mellitus without complications; E78.5 Hyperlipidemia, unspecified; E53.8 Deficiency of other specified B group vitamins; Z90.49 Acquired absence of other specified parts of digestive tract; Z89.422 Acquired absence of other left toe(s); Z98.49 Cataract extraction status, unspecified eye; Z91.14 Patient's other noncompliance with medication regimen; Z79.4 Long term (current) use of insulin; Z79.899 Other long term (current) drug therapy

== ENCOUNTER 2019-07-15 12:59 | Inpatient (IN) | payer MEDICARE, MEDICAID ==
[~2019-07-15] VITALS: Ht 190.5 cm; Wt 83.0 kg
[~2019-07-15 12:59] MED LIST changes: +ARIP1TAB4 PO; +ATOR1TAB21 PO; +CIPR-249 PO; +DOCU100C16 PO; +LACT10SO3 PO; +METR-265 PO
[2019-07-16] MEDS: HEPARIN SOD (PORCINE) 5000 UNITS/ML VIAL (J1644 PER 1000UNITS) SC SCH ×2 (09:00→21:00)
[2019-07-16] MEDS ORDERED: CLOP75TA2 PO (11:17)
[2019-07-16] MEDS ORDERED: GLUCAGON FOR INJ 1 MG VIAL (J1610) SC PRN (12:45)
[2019-07-16] MEDS ORDERED: MOM 30ML SUSPENSION UDC PO PRN (12:45)
[2019-07-16] MEDS ORDERED: GLUCOSE 4 GM CHEW TABLET PO PRN (12:45)
[2019-07-16] MEDS ORDERED: DEXTROSE 50% 50 ML SYRINGE IV PRN (12:45)
[2019-07-16] MEDS ORDERED: BISACODYL 10 MG SUPP PR PRN (12:45)
--- NOTE | 2019-07-16 12:45 | HPEPDOC ---
Air And Hydronic Balancing Technician Note DATE OF ADMISSION: 07-16-19 DATE OF SERVICE: 07-16-19 TIME OF ADMISSION: Please refer to physician's admission order. SOURCE OF ADMISSION INFORMATION: [facility] records and patient CHIEF COMPLAINT: stroke HISTORY OF PRESENT ILLNESS: 78M pmh Alzheimers dementia, COPD, HTN, diastolic CHF, DM, B12 deficiency, who developed right facial droop and right sided weakness and was brought to [facility] ED on 07-12-19 with CTH showing, Low-attenuation area in the high left parietal lobe representing acute/subacuteinfarct. MRI demonstrated, 5.5 x 3.5 cm area of restricted diffusion in the left frontal lobe consistent with acute infarction in the anterior distribution of the left middle cerebral artery. Small 8 mm focus of restricted diffusion is seen in the left posterior parietal subcortical white matter consistent with acute lacunar infarctionNo acute hemorrhage, mass or midline shift is seenStable chronic focal infarction in the left parieto-occipital lobe. CTA showed He was evaluated by neurology who encouraged patient to take ASA which he had neglected to take at home and to continue statin therapy. ECHO showed, Mildly dilated left ventricle with mild left ventricular hypertrophy (LVH), subtle septal wall motion abnormality and overall preserved left ventricular (LV)systolic function. Grade 1 diastolic dysfunction. He had episodes of sun-downing and required a sitter in addition to Haldol. He developed a fever with UA suspicious for infection, was evaluate by therapy and found to have mobility and ADL impairments, deemed medically appropriate for discharge to ARU on 07-16-19. REVIEW OF SYSTEMS: The following is a completed review of systems and has been reviewed. Review of systems otherwise unremarkable. 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 PAST MEDICAL HISTORY: as per HPI PAST SURGICAL HISTORY: Appendectomy, endo/colonoscopy ALLERGIES: Please see below. MEDICATIONS: Please see below. SOCIAL HISTORY: No etoh/smoking/illicit drugs-lives with son DIET: consistent carb diet; nectar thickened liquids; meds crushed PHYSICAL EXAMINATION: VITAL SIGNS: Please see below. GENERAL: Pleasant and cooperative. No acute distress. HEENT: PERRL. Extraocular movements intact. Clear conjunctiva CARDIOVASCULAR: Regular rate and rhythm. No murmurs, rubs, or gallops LUNGS: Clear to auscultation bilaterally. No wheezes. No rhonchi ABDOMEN: Soft, nontender, nondistended. Positive bowel sounds. Normal active bowel sounds NEUROLOGICAL: Alert and oriented times three. Cranial nerves II through XII grossly intact. Sensation grossly intact EXTREMITIES: 5\5 strength bilateral upper extremities. 4\5 strength right lower extremity. 4/5 strength in left lower extremity. SKIN: intact LABORATORY DATA: Please see below. IMAGING:Imaging documentation personally reviewed by record FUNCTIONAL STATUS: Premorbid: Independent with all activities of daily life as well as mobility On Admission: Min assist 25 feet with RW, min assist for functional transfers, dressing, toileting GOALS: Supervision for ambulation, stairs, functional transfers, dressing, bathing, toileting, caregiver training, medical optimization ASSESSMENT:78-year-old M with past medical history of dementia who presents status post stroke PLAN: 1. Rehab- PT/OT advance gait and ADLs, dynamic balance training, strengthen/stretch/maintain ROM all 4 limbs -THAI MASSEUR- evaluate for cognitive deficits and advance dysphagia- c/u puree and nectar 2. 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 Cardiac: hx of diastolic CHF, will fluid restrict and monitor daily weights 4. Resp: monitor for infection, encourage incentive spirometry 5. Endo: hx of DM c/u ISS 6. GI ppx: protonix 7. DVT ppx: heparin and TEDs 8. Pain: Tylenol prn 9. : patient with +UA on inpatient, Ucx still pending- will start Bactrim as may be contributing to agitation/confusion 10. Dispo: TBD POST ADMISSION PHYSICIAN EVALUATION: Medical and functional status: Description of medical status, medical assessment: As above. Rehabilitation diagnosis and current and prior cold morbid medical conditions as above. Risk of complications and plans to mitigate them as above. Description of functional status current status is as above. Prior status as above. Status compared to preadmission: There are no clinically significant differences between the patient's current status and the information described on the preadmission screening document. Treatment plan anticipated: Treatment plan is as described above. Required disciplines including physical therapy, occupational therapy, others as noted above Intensity of services: 3 hours a day, 6 days a week. Special considerations: There are no specific special or safety considerations that would likely preclude immediate implementation of an intensive rehabilitation program or subsequently influence the plan of care ATTESTATION: Considering all the information above, it is my best judgment that this patient requires intensive rehabilitation therapy as described above and an inpatient hospital environment due to the complexity of nursing, medical, and rehabilitation needs required by the patient. Furthermore, this patient can reasonably be expected to participate in an benefit from an inpatient rehabilitation stay with an interdisciplinary team approach to the delivery of rehabilitation care under the direction and supervision of rehabilitation physician PROGNOSIS: good ESTIMATED LENGTH OF STAY: 21-24 days. PROJECTED DISCHARGE DESTINATION: Home with family support and any durable medical equipment required to increase functional safety and mobility TIME SPENT COUNSELING AND COORDINATING INITIAL CARE: Greater than 70 minutes. Vital Signs Vital Signs Date Time Temp Pulse Resp B/P (MAP) Pulse Ox O2 Delivery O2 Flow Rate FiO2 07/16/19 14:30 98.0 69 18 125/60 (81) 94 Room Air Home Medications Scheduled Aripiprazole (Aripiprazole) 2 Mg Tablet, 2 MG PO QHS, (Reported) Aspirin (Aspir 81) 81 Mg Tablet.dr, 81 MG PO DAILY, (Reported) Atorvastatin Calcium (Atorvastatin Calcium) 20 Mg Tablet, 20 MG PO QHS, (Reported) Clopidogrel Bisulfate (Clopidogrel) 75 Mg Tablet, 75 MG PO DAILY Cyanocobalamin (Vitamin B-12) (Vitamin B-12) 500 Mcg Tablet, 1,000 MCG PO DAILY, (Reported) Donepezil HCl (Donepezil HCl) 10 Mg Tablet, 5 MG PO DAILY, (Reported) Insulin Detemir (Levemir) 100 Unit/1 Ml Vial, 16 UNITS SC QPM, (Reported) Insulin Human Lispro (Humalog) 100 Unit/1 Ml Vial, 1 DOSE SC QHS, (Reported) Per sliding scale Memantine HCl (Memantine HCl) 10 Mg Tablet, 10 MG PO BID, (Reported) Scheduled PRN Docusate Sodium (Docusate Sodium) 100 Mg Capsule, 100 MG PO DAILY PRN for CONSTIPATION, (Reported) Lactulose (Lactulose) 10 Gm/15 Ml Solution, 30 ML PO DAILY PRN for CONSTIPATION, (Reported) Allergies Coded Allergies: No Known Allergies (Unverified , 06/11/19) A-FIB/CHADSVASC A-FIB History Current/History of A-Fib/PAF?: No EMILY MANLEY MD Jul 16, 2019 12:45
[2019-07-16 14:30] VITALS: BP 125/60
[2019-07-16] MEDS ORDERED: ACETAMINOPHEN TAB 650MG DOSE (2X325MG) PO PRN (15:00)
[2019-07-16] MEDS: REMEDY PHYTOPLEX Z-GUARD PASTE 113GM TUBE (FROM STOREROOM PRODUCT) TOP SCH ×2 (16:00→21:59)
[2019-07-16] MEDS: HumaLOG INSULIN (NovoLOG) PER UNIT SC SCH ×2 (17:10→21:00)
[2019-07-16] MEDS: PROPRANOLOL 10 MG TAB PO SCH ×2 (17:35→21:00)
[2019-07-16] MEDS: LACTOBACILLUS ACIDOPHILUS CAP (BACID) PO SCH ×2 (17:36→21:00)
[2019-07-16] MEDS: BACTRIM 160MG/800MG DS TAB PO SCH (21:00)
[2019-07-16] MEDS: ATORVASTATIN 20 MG TAB PO SCH (21:00)
[2019-07-16] MEDS: SENNA 8.6 MG TAB (SENOKOT) PO SCH (21:00)
[2019-07-16] MEDS: ARIPiprazole 2 MG TAB PO SCH (21:00)
[2019-07-16] MEDS: MEMANTINE 5MG TABLET (NAMENDA) PO SCH (21:00)
[2019-07-16] MEDS: DOCUSATE SODIUM 100 MG CAP PO SCH (21:00)
[2019-07-16 21:09] VITALS: BP 148/74
[2019-07-17 05:44] VITALS: BP 123/65
[2019-07-17 05:45] VITALS: BP 135/68
[2019-07-17 07:08] LABS: BASO % 0.5 % (0.0-1.0); EOS # 0.3 10^3/uL (0.0-0.5); EOS % 5.5 % (0.0-3.0); HEMATOCRIT 35.7 % (42.0-52.0); HEMOGLOBIN 12.1 g/dl (13.5-17.5); LYMPH # 0.9 10^3/uL (1.5-5.0); LYMPH % 15.6 % (24.0-44.0); MEAN CORPUSCULAR HEMOGLOBIN 30.6 pg (27.0-33.0); MEAN CORPUSCULAR HGB CONC 33.9 g/dl (32.0-36.5); MEAN CORPUSCULAR VOLUME 90.2 fl (80.0-96.0); MONO # 0.7 10^3/uL (0.0-0.8); MONO % 11.4 % (0.0-5.0); NEUTROPHILS % 66.5 % (36.0-66.0); PLATELET COUNT, AUTOMATED 109 10^3/uL (150-450); RED BLOOD COUNT 3.96 10^6/uL (4.30-6.10)
[2019-07-17 07:29] LABS: ALBUMIN 2.9 GM/DL (3.2-5.2); ALT/SGPT 25 U/L (12-78); BILIRUBIN,TOTAL 0.7 MG/DL (0.2-1.0); BLOOD UREA NITROGEN 21 MG/DL (7-18); CARBON DIOXIDE LEVEL 26 MEQ/L (21-32); CHLORIDE LEVEL 105 MEQ/L (98-107); CREATININE FOR GFR 1.14 MG/DL (0.70-1.30); GLOMERULAR FILTRATION RATE > 60.0 (>35); GLUCOSE, FASTING 174 MG/DL (70-100); POTASSIUM SERUM 3.8 MEQ/L (3.5-5.1); SODIUM LEVEL 137 MEQ/L (136-145); TOTAL PROTEIN 6.8 GM/DL (6.4-8.2)
[2019-07-17] MEDS: LANSOPRAZOLE SUSPENSION 30 MG/10 ML ORAL SYRINGE (FIRST-LANSOPRAZOLE) PO SCH (07:55)
[2019-07-17] MEDS: HumaLOG INSULIN (NovoLOG) PER UNIT SC SCH ×4 (08:09→21:09)
[2019-07-17] MEDS: ASPIRIN 81 MG ENTERIC TAB PO SCH (08:09)
[2019-07-17] MEDS: HEPARIN SOD (PORCINE) 5000 UNITS/ML VIAL (J1644 PER 1000UNITS) SC SCH ×2 (08:09→21:08)
[2019-07-17] MEDS: MEMANTINE 5MG TABLET (NAMENDA) PO SCH ×2 (08:09→21:07)
[2019-07-17] MEDS: CLOPIDOGREL 75 MG TAB PO SCH (08:10)
[2019-07-17] MEDS: DONEPEZIL 5 MG TAB PO SCH (08:10)
[2019-07-17] MEDS: CYANOCOBALAMIN 500 MCG TAB PO SCH (08:10)
[2019-07-17] MEDS: DOCUSATE SODIUM 100 MG CAP PO SCH ×2 (08:11→21:00)
[2019-07-17] MEDS: PROPRANOLOL 10 MG TAB PO SCH ×3 (08:11→21:07)
[2019-07-17] MEDS: LACTOBACILLUS ACIDOPHILUS CAP (BACID) PO SCH ×3 (08:11→21:07)
[2019-07-17] MEDS: BACTRIM 160MG/800MG DS TAB PO SCH ×2 (08:11→21:07)
[2019-07-17] MEDS: REMEDY PHYTOPLEX Z-GUARD PASTE 113GM TUBE (FROM STOREROOM PRODUCT) TOP SCH ×3 (08:11→21:17)
--- NOTE | 2019-07-17 11:59 | IPNPDOC ---
Text Note Date of Service The patient was seen on 07/17/19. NOTE Patient was seen and examined this morning, no family member at the bedside. Involved in therapy . Felling better. Still having trouble finding words. Physical Examination General: Alert, No Acute Distress Eyes: PERRLA, Conjunctiva & lids normal, EOMI, PERRLA ENT: Atraumatic, Mucous membr. moist/pink, Pharynx Normal Neck: Supple, no JVD, thyromegaly Chest: Clear to auscultation, Normal air movement Heart: Rate Normal, Regular Rhythm, Normal S1, Normal S2, no noted Murmurs or Rubs Abdomen: Normal bowel sounds, Soft, NTND Extremity: Normal pulses, no Edema Skin: Nl turgor and temperature Neuro Exam:Strength at 5/5 X4 ext, no facial droop. Tongue is midline, slight dysarthria. Psych Exam: restless, trying to stand up, not able to corroborate orientation. Labs reviewed, radiology reviewed Assessment: 78 yo man with advanced Alzheimer's disease who is admitted initially to Hospitalist service and now discharged to ARU for with a L parietal lobe CVA with initial R sided deficits and could not be corroborated to have been within the window for tPA therefore being medically managed with ASA with MRI/MRA brain with carotid doppler showing occluded left internal carotid with significant recovery of his Right sided motor function. 1. Left parietal lobe CVA: With initial severe right facial droop with drooling, right arm and right leg weakness as well as severe expressive aphasia. Neck doppler ultrasound showing total occlusion of left internal carotid, not i ntervenable per discussion with Dr. Zambrano by our team. 2-D echo reviewed. No intracardiac thrombus or severe hypokinesia. EKG sinus rhythm. Continue on aspirin and Plavix. Continue statins.Continue aspiration precautions 2. Alzheimer's disease: At baseline is confused, Per son's description. Maintain sleep hygiene. 3. DM1: Continue home meds DVT prophylaxis Continue rehabilitation VS,Fishbone, I+O VS, Fishbone, I+O Laboratory Tests 07/17/19 06:30 Vital Signs Date Time Temp Pulse Resp B/P (MAP) Pulse Ox O2 Delivery O2 Flow Rate FiO2 07/17/19 08:11 68 135/68 07/17/19 05:45 99.0 18 98 Room Air I&O- Last 24 Hours up to 6 AM 07/17/19 06:00 Intake Total 495 ml Output Total 550 ml Balance -55 ml BURT GOFF MD Jul 17, 2019 11:59
[2019-07-17] MEDS: MAGIC MOUTHWASH SUSPENSION BTL XX SCH ×2 (12:00→17:30)
--- NOTE | 2019-07-17 12:10 | IPNPDOC ---
PM&R Progress Note DATE OF SERVICE: Jul 17, 2019 Senior C Developer Progress Note Subjective: Patient seen in therapy walking, not following commands, but able to demonstrate fairly good control over his movement. REVIEW OF SYSTEMS: The following is a completed review of systems and has been reviewed. Review of systems otherwise unremarkable. 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 PHYSICAL EXAMINATION: VITAL SIGNS: Please see below. GENERAL: Pleasant and cooperative. No acute distress. HEENT: PERRL. Extraocular movements intact. Clear conjunctiva CARDIOVASCULAR: Regular rate and rhythm. No murmurs, rubs, or gallops LUNGS: Clear to auscultation bilaterally. No wheezes. No rhonchi ABDOMEN: Soft, nontender, nondistended. Positive bowel sounds. Normal active bowel sounds NEUROLOGICAL: Alert and oriented times three. Cranial nerves II through XII jacquelyn sly intact. Sensation grossly intact EXTREMITIES: 5\5 strength bilateral upper extremities. 4\5 strength right lower extremity. 4/5 strength in left lower extremity. SKIN: intact ASSESSMENT:78-year-old M with past medical history of dementia who presents status post stroke PLAN: 1. Rehab- PT/OT advance gait and ADLs, dynamic balance training, strengthen/stretch/maintain ROM all 4 limbs -PAINT LABORATORY TECHNICIAN- evaluate for cognitive deficits and advance dysphagia- c/u puree and nectar 2. 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 Cardiac: hx of diastolic CHF, will fluid restrict and monitor daily weights 4. Resp: monitor for infection, encourage incentive spirometry 5. Endo: hx of DM c/u ISS 6. GI ppx: protonix 7. DVT ppx: heparin and TEDs 8. Pain: Tylenol prn 9. : patient with +UA on inpatient, Ucx still pending- c/u Bactrim as may be contributing to agitation/confusion 10. Insomnia- will add trazodone 11. Dispo: TBD Allergies Coded Allergies: No Known Allergies (Unverified , 06/11/19) Vital Signs Vital Signs Date Time Temp Pulse Resp B/P (MAP) Pulse Ox O2 Delivery O2 Flow Rate FiO2 07/17/19 08:11 68 135/68 07/17/19 05:45 99.0 18 98 Room Air Laboratory Data CBC/BMP Laboratory Tests 07/17/19 06:30 Labs 24H Laboratory Tests 2 07/16/19 16:40: Bedside Glucose (Misc Panel) 98 07/16/19 20:43: Bedside Glucose (Misc Panel) 196H 07/17/19 05:57: Bedside Glucose (Misc Panel) 179H 07/17/19 06:30: Immature Granulocyte % (Auto) 0.5, Neutrophils (%) (Auto) 66.5H, Lymphocytes (%) (Auto) 15.6L, Monocytes (%) (Auto) 11.4H, Eosinophils (%) (Auto) 5.5H, Basophils (%) (Auto) 0.5, Neutrophils # (Auto) 4.0, Lymphocytes # (Auto) 0.9L, Monocytes # (Auto) 0.7, Eosinophils # (Auto) 0.3, Basophils # (Auto) 0.0, Nucleated Red Blood Cells % (auto) 0.0, Anion Gap 6L, Glomerular Filtration Rate > 60.0, Calci um Level 8.0L, Total Bilirubin 0.7, Aspartate Amino Transf (AST/SGOT) 22, Alanine Aminotransferase (ALT/SGPT) 25, Alkaline Phosphatase 70, Total Protein 6.8, Albumin 2.9L, Albumin/Globulin Ratio 0.74L 07/17/19 11:35: Bedside Glucose (Misc Panel) 152H Current Medications Current Medications Current Medications Medications (Trade) Dose Ordered Sig/Vivien Route PRN Reason Start Time Stop Time Status Last Admin Dose Admin Acetaminophen (Tylenol Tab) 650 mg Q4HP PRN PO fever/MILD PAIN (PS 1-4) 07/16/19 15:00 Aripiprazole (AbiLIFY) 2 mg QHS PO 07/16/19 21:00 Aspirin (Ecotrin) 81 mg DAILY PO 07/17/19 09:00 07/17/19 08:09 Atorvastatin Calcium (Lipitor) 20 mg QHS PO 07/16/19 21:00 Bisacodyl (Dulcolax Suppository) 10 mg DAILYPRN PRN MD CONSTIPATION 07/16/19 12:45 Clopidogrel Bisulfate (PLAVix) 75 mg DAILY PO 07/17/19 09:00 07/17/19 08:10 Cyanocobalamin (Vitamin B12) 1,000 mcg DAILY PO 07/17/19 09:00 07/17/19 08:10 Dextrose (Dextrose 50%) 25 ml ASDIRECTED PRN IV SEE LABEL COMMENTS 07/16/19 12:45 Docusate Sodium (Colace) 100 mg BID PO 07/16/19 21:00 Donepezil HCl (AriCEPT) 5 mg DAILY PO 07/17/19 09:00 07/17/19 08:10 Glucagon (Glucagon) 1 mg ASDIRECTED PRN SC SEE LABEL COMMENTS 07/16/19 12:45 Glucose (Glucose) 16 GM ASDIRECTED PRN PO SEE LABEL COMMENTS 07/16/19 12:45 Heparin Sodium (Porcine) (Heparin) 5,000 units Q12H SC 07/16/19 09:00 07/17/19 08:09 Insulin Human Lispro (HumaLOG INSULIN) SEE PROTOCOL TABLE AC SC 07/16/19 17:30 07/17/19 08:09 Insulin Human Lispro (HumaLOG INSULIN) SEE PROTOCOL TABLE QHS SC 07/16/19 21:00 Lactobacillus Acidophilus (Bacid) 1 ea TID PO 07/16/19 16:00 07/17/19 08:11 Lansoprazole (First-Lansoprazole Oral Suspension) 30 mg DAILY PO 07/17/19 09:00 07/17/19 07:55 Magnesium Hydroxide (Milk Of Magnesia) 30 ml DAILYPRN PRN PO CONSTIPATION 07/16/19 12:45 Memantine (Namenda) 10 mg BID PO 07/16/19 21:00 07/17/19 08:09 Propranolol HCl (Inderal) 10 mg TID PO 07/16/19 16:00 07/17/19 08:11 Senna (Senokot) 1 tab QHS PO 07/16/19 21:00 Trimethoprim/ Sulfamethoxazole (Bactrim Ds, Septra Ds 160mg/ 800mg) 1 tab BID PO 07/16/19 21:00 07/17/19 08:11 EMILY MANLEY MD Jul 17, 2019 12:10
[2019-07-17] MEDS ORDERED: traZODone 25MG PER 1/2 TABLET PO PRN (12:15)
[2019-07-17 14:00] VITALS: BP 166/77
[2019-07-17] MEDS: SENNA 8.6 MG TAB (SENOKOT) PO SCH (21:00)
[2019-07-17] MEDS ORDERED: traZODone 25MG PER 1/2 TABLET PO SCH (21:00)
[2019-07-17] MEDS: ATORVASTATIN 20 MG TAB PO SCH (21:08)
[2019-07-17] MEDS: ARIPiprazole 2 MG TAB PO SCH (21:08)
[2019-07-17 21:39] VITALS: BP 171/78
[2019-07-18 05:39] VITALS: BP 114/59
[2019-07-18] MEDS: MAGIC MOUTHWASH SUSPENSION BTL XX SCH ×3 (07:30→17:30)
[2019-07-18] MEDS: MEMANTINE 5MG TABLET (NAMENDA) PO SCH ×2 (08:51→19:18)
[2019-07-18] MEDS: DONEPEZIL 5 MG TAB PO SCH (08:51)
[2019-07-18] MEDS: ASPIRIN 81 MG ENTERIC TAB PO SCH (08:51)
[2019-07-18] MEDS: BACTRIM 160MG/800MG DS TAB PO SCH ×2 (08:51→19:16)
[2019-07-18] MEDS: HumaLOG INSULIN (NovoLOG) PER UNIT SC SCH ×5 (08:51→19:34)
[2019-07-18] MEDS: DOCUSATE SODIUM 100 MG CAP PO SCH ×3 (08:51→19:35)
[2019-07-18] MEDS: CLOPIDOGREL 75 MG TAB PO SCH (08:51)
[2019-07-18] MEDS: HEPARIN SOD (PORCINE) 5000 UNITS/ML VIAL (J1644 PER 1000UNITS) SC SCH ×3 (08:51→19:20)
[2019-07-18] MEDS: LACTOBACILLUS ACIDOPHILUS CAP (BACID) PO SCH ×5 (08:51→19:16)
[2019-07-18] MEDS: LANSOPRAZOLE SUSPENSION 30 MG/10 ML ORAL SYRINGE (FIRST-LANSOPRAZOLE) PO SCH (08:52)
[2019-07-18] MEDS: CYANOCOBALAMIN 500 MCG TAB PO SCH ×2 (08:52→09:00)
[2019-07-18] MEDS: REMEDY PHYTOPLEX Z-GUARD PASTE 113GM TUBE (FROM STOREROOM PRODUCT) TOP SCH ×3 (08:52→19:35)
[2019-07-18] MEDS: PROPRANOLOL 10 MG TAB PO SCH ×4 (10:06→19:18)
[2019-07-18 10:44] LABS: BASO % 0.5 % (0.0-1.0); EOS # 0.3 10^3/uL (0.0-0.5); EOS % 4.5 % (0.0-3.0); HEMATOCRIT 32.3 % (42.0-52.0); HEMOGLOBIN 10.8 g/dl (13.5-17.5); LYMPH # 1.1 10^3/uL (1.5-5.0); LYMPH % 17.9 % (24.0-44.0); MEAN CORPUSCULAR HEMOGLOBIN 30.2 pg (27.0-33.0); MEAN CORPUSCULAR HGB CONC 33.4 g/dl (32.0-36.5); MEAN CORPUSCULAR VOLUME 90.2 fl (80.0-96.0); MONO # 0.7 10^3/uL (0.0-0.8); NEUTROPHILS # 4.2 10^3/uL (1.5-8.5); NEUTROPHILS % 65.9 % (36.0-66.0); PLATELET COUNT, AUTOMATED 107 10^3/uL (150-450); RED BLOOD COUNT 3.58 10^6/uL (4.30-6.10); WHITE BLOOD COUNT 6.4 10^3/uL (4.0-10.0)
[2019-07-18 11:06] LABS: CALCIUM LEVEL 7.8 MG/DL (8.8-10.2); CREATININE FOR GFR 1.29 MG/DL (0.70-1.30); GLOMERULAR FILTRATION RATE 57.1 (>35); POTASSIUM SERUM 4.2 MEQ/L (3.5-5.1)
--- NOTE | 2019-07-18 11:55 | IPNPDOC ---
PM&R Progress Note DATE OF SERVICE: Jul 18, 2019 Receiving Tank Operator Progress Note Subjective: Patient seen in his room sleeping this morning, able to be roused. REVIEW OF SYSTEMS: The following is a completed review of systems and has been reviewed. Review of systems otherwise unremarkable. 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 PHYSICAL EXAMINATION: VITAL SIGNS: Please see below. GENERAL: Pleasant and cooperative. No acute distress. HEENT: PERRL. Extraocular movements intact. Clear conjunctiva CARDIOVASCULAR: Regular rate and rhythm. No murmurs, rubs, or gallops LUNGS: Clear to auscultation bilaterally. No wheezes. No rhonchi ABDOMEN: Soft, nontender, nondistended. Positive bowel sounds. Normal active bowel sounds NEUROLOGICAL: Alert and oriented times three. Cranial nerves II through XII grossly intact. Sensation grossly intact EXTREMITIES: 5\5 strength bilateral upper extremities. 4\5 strength right lower extremity. 4/5 strength in left lower extremity. SKIN: intact ASSESSMENT:78-year-old M with past medical history of dementia who presents status post stroke PLAN: 1. Rehab- PT/OT advance gait and ADLs, dynamic balance training, strengthen/stretch/maintain ROM all 4 limbs -SERVICE CENTER TECHNICIAN- evaluate for cognitive deficits and advance dysphagia- c/u puree and nectar 2. 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 Cardiac: hx of diastolic CHF, c/u fluid restrict and monitor daily weights 4. Resp: monitor for infection, encourage incentive spirometry 5. Endo: hx of DM c/u ISS 6. GI ppx: protonix 7. DVT ppx: heparin and TEDs 8. Pain: Tylenol prn 9. : patient with +MRSA UTI, c/u Bactrim x 14 days 10. Insomnia- will chnage trazodone to q7pm to avoid daytime somnolence, patient reported to have slept through the night 11. Dispo: TBD Allergies Coded Allergies: No Known Allergies (Unverified , 06/11/19) Vital Signs Vital Signs Date Time Temp Pulse Resp B/P (MAP) Pulse Ox O2 Delivery O2 Flow Rate FiO2 07/18/19 05:39 97.8 58 18 114/59 (77) 98 Room Air Laboratory Data CBC/BMP Laboratory Tests 07/18/19 10:29 Labs 24H Laboratory Tests 2 07/17/19 16:47: Bedside Glucose (Misc Panel) 184H 07/17/19 20:18: Bedside Glucose (Misc Panel) 253H 07/18/19 06:06: Bedside Glucose (Misc Panel) 132H 07/18/19 10:29: Immature Granulocyte % (Auto) 0.2, Neutrophils (%) (Auto) 65.9, Lymphocytes (%) (Auto) 17.9L, Monocytes (%) (Auto) 11.0H, Eosinophils (%) (Auto) 4.5H, Basophils (%) (Auto) 0.5, Neutrophils # (Auto) 4.2, Lymphocytes # (Auto) 1.1L, Monocytes # (Auto) 0.7, Eosinophils # (Auto) 0.3, Basophils # (Auto) 0.0, Nucleated Red Blood Cells % (auto) 0.0, Anion Gap 3L, Glomerular Filtration Rate 57.1, Calcium Level 7.8L 07/18/19 11:35: Bedside Glucose (Misc Panel) 175H Current Medications Current Medications Current Medications Medications (Trade) Dose Ordered Sig/Vivien Route PRN Reason Start Time Stop Time Status Last Admin Dose Admin Acetaminophen (Tylenol Tab) 650 mg Q4HP PRN PO fever/MILD PAIN (PS 1-4) 07/16/19 15:00 Aripiprazole (AbiLIFY) 2 mg QHS PO 07/16/19 21:00 07/17/19 21:08 Aspirin (Ecotrin) 81 mg DAILY PO 07/17/19 09:00 07/18/19 08:51 Atorvastatin Calcium (Lipitor) 20 mg QHS PO 07/16/19 21:00 07/17/19 21:08 Bisacodyl (Dulcolax Suppository) 10 mg DAILYPRN PRN HI CONSTIPATION 07/16/19 12:45 Clopidogrel Bisulfate (PLAVix) 75 mg DAILY PO 07/17/19 09:00 07/18/19 08:51 Cyanocobalamin (Vitamin B12) 1,000 mcg DAILY PO 07/17/19 09:00 07/17/19 08:10 Dextrose (Dextrose 50%) 25 ml ASDIRECTED PRN IV SEE LABEL COMMENTS 07/16/19 12:45 Docusate Sodium (Colace) 100 mg BID PO 07/16/19 21:00 Donepezil HCl (AriCEPT) 5 mg DAILY PO 07/17/19 09:00 07/18/19 08:51 Glucagon (Glucagon) 1 mg ASDIRECTED PRN SC SEE LABEL COMMENTS 07/16/19 12:45 Glucose (Glucose) 16 GM ASDIRECTED PRN PO SEE LABEL COMMENTS 07/16/19 12:45 Heparin Sodium (Porcine) (Heparin) 5,000 units Q12H SC 07/16/19 09:00 07/17/19 21:08 Insulin Human Lispro (HumaLOG INSULIN) SEE PROTOCOL TABLE AC SC 07/16/19 17:30 07/18/19 08:51 Insulin Human Lispro (HumaLOG INSULIN) SEE PROTOCOL TABLE QHS SC 07/16/19 21:00 07/17/19 21:09 Lactobacillus Acidophilus (Bacid) 1 ea TID PO 07/16/19 16:00 07/17/19 21:07 Lansoprazole (First-Lansoprazole Oral Suspension) 30 mg DAILY PO 07/17/19 09:00 07/18/19 08:52 Lidocaine/ Diphenhydr/Alum/ Mg/Simeth (Magic Mouthwash) 5ml AC XX 07/17/19 12:00 Magnesium Hydroxide (Milk Of Magnesia) 30 ml DAILYPRN PRN PO CONSTIPATION 07/16/19 12:45 Memantine (Namenda) 10 mg BID PO 07/16/19 21:00 07/18/19 08:51 Propranolol HCl (Inderal) 10 mg TID PO 07/16/19 16:00 07/17/19 21:07 Senna (Senokot) 1 tab QHS PO 07/16/19 21:00 Trazodone HCl (Desyrel) 25 mg Q6HP PRN PO agitation 07/17/19 12:15 Trazodone HCl (Desyrel) 25 mg QHS PO 07/17/19 21:00 07/17/19 21:07 Trimethoprim/ Sulfamethoxazole (Bactrim Ds, Septra Ds 160mg/ 800mg) 1 tab BID PO 07/16/19 21:00 07/18/19 08:51 EMILY MANLEY MD Jul 18, 2019 11:55
[2019-07-18 14:00] VITALS: BP 129/60
[2019-07-18] MEDS: traZODone 25MG PER 1/2 TABLET PO SCH (19:16)
[2019-07-18] MEDS: ATORVASTATIN 20 MG TAB PO SCH (19:16)
[2019-07-18] MEDS: ARIPiprazole 2 MG TAB PO SCH (19:18)
[2019-07-18] MEDS: SENNA 8.6 MG TAB (SENOKOT) PO SCH (19:18)
[2019-07-18 19:37] VITALS: BP 138/74
[2019-07-19] MEDS: CYANOCOBALAMIN 500 MCG TAB PO SCH (08:52)
[2019-07-19] MEDS: HumaLOG INSULIN (NovoLOG) PER UNIT SC SCH ×4 (08:52→20:49)
[2019-07-19] MEDS: ASPIRIN 81 MG ENTERIC TAB PO SCH (08:52)
[2019-07-19] MEDS: LACTOBACILLUS ACIDOPHILUS CAP (BACID) PO SCH ×3 (08:52→19:59)
[2019-07-19] MEDS: BACTRIM 160MG/800MG DS TAB PO SCH ×2 (08:52→20:01)
[2019-07-19] MEDS: PROPRANOLOL 10 MG TAB PO SCH ×3 (08:53→20:01)
[2019-07-19] MEDS: MEMANTINE 5MG TABLET (NAMENDA) PO SCH ×2 (08:53→19:59)
[2019-07-19] MEDS: CLOPIDOGREL 75 MG TAB PO SCH (08:53)
[2019-07-19] MEDS: DOCUSATE SODIUM 100 MG CAP PO SCH ×2 (08:53→20:00)
[2019-07-19] MEDS: HEPARIN SOD (PORCINE) 5000 UNITS/ML VIAL (J1644 PER 1000UNITS) SC SCH ×2 (08:53→19:59)
[2019-07-19] MEDS: LANSOPRAZOLE SUSPENSION 30 MG/10 ML ORAL SYRINGE (FIRST-LANSOPRAZOLE) PO SCH (08:54)
[2019-07-19] MEDS: DONEPEZIL 5 MG TAB PO SCH (08:54)
[2019-07-19] MEDS: MAGIC MOUTHWASH SUSPENSION BTL XX SCH ×3 (08:55→17:09)
[2019-07-19] MEDS: REMEDY PHYTOPLEX Z-GUARD PASTE 113GM TUBE (FROM STOREROOM PRODUCT) TOP SCH ×3 (08:56→20:02)
[2019-07-19 13:57] VITALS: BP 150/68
[2019-07-19 20:00] VITALS: BP 137/63
[2019-07-19] MEDS: ATORVASTATIN 20 MG TAB PO SCH (20:00)
[2019-07-19] MEDS: ARIPiprazole 2 MG TAB PO SCH (20:00)
[2019-07-19] MEDS: traZODone 25MG PER 1/2 TABLET PO SCH (20:00)
[2019-07-19] MEDS: SENNA 8.6 MG TAB (SENOKOT) PO SCH (20:01)
[2019-07-20 06:00] VITALS: BP 122/60
[2019-07-20] MEDS: DOCUSATE SODIUM 100 MG CAP PO SCH ×2 (07:27→21:41)
[2019-07-20] MEDS: BACTRIM 160MG/800MG DS TAB PO SCH ×2 (07:27→21:42)
[2019-07-20] MEDS: LACTOBACILLUS ACIDOPHILUS CAP (BACID) PO SCH ×3 (07:28→21:41)
[2019-07-20] MEDS: CYANOCOBALAMIN 500 MCG TAB PO SCH (07:28)
[2019-07-20] MEDS: MEMANTINE 5MG TABLET (NAMENDA) PO SCH ×2 (07:28→21:42)
[2019-07-20] MEDS: HumaLOG INSULIN (NovoLOG) PER UNIT SC SCH ×4 (07:28→21:00)
[2019-07-20] MEDS: ASPIRIN 81 MG ENTERIC TAB PO SCH (07:28)
[2019-07-20] MEDS: MAGIC MOUTHWASH SUSPENSION BTL XX SCH ×3 (07:28→16:53)
[2019-07-20] MEDS: DONEPEZIL 5 MG TAB PO SCH (07:29)
[2019-07-20] MEDS: CLOPIDOGREL 75 MG TAB PO SCH (07:29)
[2019-07-20] MEDS: PROPRANOLOL 10 MG TAB PO SCH ×3 (07:31→21:42)
[2019-07-20] MEDS: HEPARIN SOD (PORCINE) 5000 UNITS/ML VIAL (J1644 PER 1000UNITS) SC SCH ×2 (07:32→21:43)
[2019-07-20] MEDS: REMEDY PHYTOPLEX Z-GUARD PASTE 113GM TUBE (FROM STOREROOM PRODUCT) TOP SCH ×3 (07:32→21:00)
[2019-07-20] MEDS: LANSOPRAZOLE SUSPENSION 30 MG/10 ML ORAL SYRINGE (FIRST-LANSOPRAZOLE) PO SCH (07:32)
[2019-07-20 13:55] VITALS: BP 132/58
[2019-07-20 20:00] VITALS: BP 137/61
[2019-07-20] MEDS: ATORVASTATIN 20 MG TAB PO SCH (21:41)
[2019-07-20] MEDS: traZODone 25MG PER 1/2 TABLET PO SCH (21:42)
[2019-07-20] MEDS: ARIPiprazole 2 MG TAB PO SCH (21:42)
[2019-07-20] MEDS: SENNA 8.6 MG TAB (SENOKOT) PO SCH (21:43)
[2019-07-21 06:00] VITALS: BP 120/58
[2019-07-21 06:35] LABS: BASO % 0.6 % (0.0-1.0); EOS # 0.5 10^3/uL (0.0-0.5); EOS % 8.8 % (0.0-3.0); HEMATOCRIT 32.8 % (42.0-52.0); HEMOGLOBIN 10.9 g/dl (13.5-17.5); LYMPH # 1.2 10^3/uL (1.5-5.0); LYMPH % 22.9 % (24.0-44.0); MEAN CORPUSCULAR HEMOGLOBIN 30.2 pg (27.0-33.0); MEAN CORPUSCULAR HGB CONC 33.2 g/dl (32.0-36.5); MEAN CORPUSCULAR VOLUME 90.9 fl (80.0-96.0); MONO # 0.5 10^3/uL (0.0-0.8); MONO % 9.2 % (0.0-5.0); NEUTROPHILS # 3.1 10^3/uL (1.5-8.5); NEUTROPHILS % 58.1 % (36.0-66.0); PLATELET COUNT, AUTOMATED 134 10^3/uL (150-450); RED BLOOD COUNT 3.61 10^6/uL (4.30-6.10); WHITE BLOOD COUNT 5.2 10^3/uL (4.0-10.0)
[2019-07-21 06:57] LABS: CREATININE FOR GFR 1.32 MG/DL (0.70-1.30); GLOMERULAR FILTRATION RATE 55.6 (>35); POTASSIUM SERUM 4.2 MEQ/L (3.5-5.1)
[2019-07-21] MEDS: MAGIC MOUTHWASH SUSPENSION BTL XX SCH ×3 (07:30→17:30)
[2019-07-21] MEDS: HEPARIN SOD (PORCINE) 5000 UNITS/ML VIAL (J1644 PER 1000UNITS) SC SCH ×4 (08:28→20:24)
[2019-07-21] MEDS: DONEPEZIL 5 MG TAB PO SCH ×2 (08:28→08:39)
[2019-07-21] MEDS: DOCUSATE SODIUM 100 MG CAP PO SCH ×3 (08:28→20:19)
[2019-07-21] MEDS: HumaLOG INSULIN (NovoLOG) PER UNIT SC SCH ×5 (08:28→20:25)
[2019-07-21] MEDS: ASPIRIN 81 MG ENTERIC TAB PO SCH ×2 (08:28→08:39)
[2019-07-21] MEDS: CLOPIDOGREL 75 MG TAB PO SCH ×2 (08:29→08:40)
[2019-07-21] MEDS: BACTRIM 160MG/800MG DS TAB PO SCH ×4 (08:29→20:19)
[2019-07-21] MEDS: MEMANTINE 5MG TABLET (NAMENDA) PO SCH ×3 (08:29→20:19)
[2019-07-21] MEDS: CYANOCOBALAMIN 500 MCG TAB PO SCH ×2 (08:29→08:40)
[2019-07-21] MEDS: LACTOBACILLUS ACIDOPHILUS CAP (BACID) PO SCH ×4 (08:29→20:19)
[2019-07-21] MEDS: PROPRANOLOL 10 MG TAB PO SCH ×3 (08:29→20:25)
[2019-07-21] MEDS: LANSOPRAZOLE SUSPENSION 30 MG/10 ML ORAL SYRINGE (FIRST-LANSOPRAZOLE) PO SCH ×2 (08:29→08:39)
[2019-07-21] MEDS: REMEDY PHYTOPLEX Z-GUARD PASTE 113GM TUBE (FROM STOREROOM PRODUCT) TOP SCH ×3 (08:30→20:25)
[2019-07-21 14:00] VITALS: BP 131/65
--- NOTE | 2019-07-21 14:50 | IPNPDOC ---
PM&R Progress Note DATE OF SERVICE: Jul 21, 2019 [employer] Manager Progress Note Subjective: Patient seen walking in therapy mostly self-directing, smiling and unable to effectively communicate. REVIEW OF SYSTEMS: The following is a completed review of systems and has been reviewed. Review of systems otherwise unremarkable. 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 PHYSICAL EXAMINATION: VITAL SIGNS: Please see below. GENERAL: Pleasant and cooperative. No acute distress. HEENT: PERRL. Extraocular movements intact. Clear conjunctiva CARDIOVASCULAR: Regular rate and rhythm. No murmurs, rubs, or gallops LUNGS: Clear to auscultation bilaterally. No wheezes. No rhonchi ABDOMEN: Soft, nontender, nondistended. Positive bowel sounds. Normal active bowel sounds NEUROLOGICAL: Alert and oriented times three. Cranial nerves II through XII grossly intact. Sensation grossly intact EXTREMITIES: 5\5 strength bilateral upper extremities. 4\5 strength right lower extremity. 4/5 strength in left lower extremity. SKIN: intact ASSESSMENT:78-year-old M with past medical history of dementia who presents status post stroke PLAN: 1. 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 Cardiac: hx of diastolic CHF, c/u fluid restrict and monitor daily weights 4. Resp: monitor for infection, encourage incentive spirometry 5. Endo: hx of DM c/u ISS 6. GI ppx: protonix 7. DVT ppx: heparin and TEDs 8. Pain: Tylenol prn 9. : patient with +MRSA UTI, c/u Bactrim x 14 days- patient refusing to take meds at times 10. Insomnia- c/u trazodone q7pm to avoid daytime somnolence 11. Dispo: TBD Allergies Coded Allergies: No Known Allergies (Unverified , 06/11/19) Vital Signs Vital Signs Date Time Temp Pulse Resp B/P (MAP) Pulse Ox O2 Delivery O2 Flow Rate FiO2 07/21/19 14:00 98.3 76 18 131/65 (87) 100 Room Air 07/19/19 06:00 138.0 67 Laboratory Data CBC/BMP Laboratory Tests 07/21/19 06:10 Labs 24H Laboratory Tests 2 07/20/19 16:31: Bedside Glucose (Misc Panel) 166H 07/20/19 21:24: Bedside Glucose (Misc Panel) 123H 07/21/19 06:10: Immature Granulocyte % (Auto) 0.4, Neutrophils (%) (Auto) 58.1, Lymphocytes (%) (Auto) 22.9L, Monocytes (%) (Auto) 9.2H, Eosinophils (%) (Auto) 8.8H, Basophils (%) (Auto) 0.6, Neutrophils # (Auto) 3.1, Lymphocytes # (Auto) 1.2L, Monocytes # (Auto) 0.5, Eosinophils # (Auto) 0.5, Basophils # (Auto) 0.0, Nucleated Red Blood Cells % (auto) 0.0, Anion Gap 1L, Glomerular Filtration Rate 55.6, Calcium Level 9.0# 07/21/19 11:25: Bedside Glucose (Misc Panel) 228H Current Medications Current Medications Current Medications Medications (Trade) Dose Ordered Sig/Vivien Route PRN Reason Start Time Stop Time Status Last Admin Dose Admin Acetaminophen (Tylenol Tab) 650 mg Q4HP PRN PO fever/MILD PAIN (PS 1-4) 07/16/19 15:00 07/19/19 20:00 Aripiprazole (AbiLIFY) 2 mg QHS PO 07/16/19 21:00 07/20/19 21:42 Aspirin (Ecotrin) 81 mg DAILY PO 07/17/19 09:00 07/20/19 07:28 Atorvastatin Calcium (Lipitor) 20 mg QHS PO 07/16/19 21:00 07/20/19 21:41 Bisacodyl (Dulcolax Suppository) 10 mg DAILYPRN PRN [place] CONSTIPATION 07/16/19 12:45 Clopidogrel Bisulfate (PLAVix) 75 mg DAILY PO 07/17/19 09:00 07/20/19 07:29 Cyanocobalamin (Vitamin B12) 1,000 mcg DAILY PO 07/17/19 09:00 07/20/19 07:28 Dextrose (Dextrose 50%) 25 ml ASDIRECTED PRN IV SEE LABEL COMMENTS 07/16/19 12:45 Docusate Sodium (Colace) 100 mg BID PO 07/16/19 21:00 07/20/19 21:41 Donepezil HCl (AriCEPT) 5 mg DAILY PO 07/17/19 09:00 07/20/19 07:29 Glucagon (Glucagon) 1 mg ASDIRECTED PRN SC SEE LABEL COMMENTS 07/16/19 12:45 Glucose (Glucose) 16 GM ASDIRECTED PRN PO SEE LABEL COMMENTS 07/16/19 12:45 Heparin Sodium (Porcine) (Heparin) 5,000 units Q12H SC 07/16/19 09:00 07/20/19 21:43 Insulin Human Lispro (HumaLOG INSULIN) SEE PROTOCOL TABLE AC SC 07/16/19 17:30 07/21/19 12:15 Insulin Human Lispro (HumaLOG INSULIN) SEE PROTOCOL TABLE QHS SC 07/16/19 21:00 07/17/19 21:09 Lactobacillus Acidophilus (Bacid) 1 ea TID PO 07/16/19 16:00 07/20/19 21:41 Lansoprazole (First-Lansoprazole Oral Suspension) 30 mg DAILY PO 07/17/19 09:00 07/20/19 07:32 Lidocaine/ Diphenhydr/Alum/ Mg/Simeth (Magic Mouthwash) 5ml AC XX 07/17/19 12:00 07/20/19 16:53 Magnesium Hydroxide (Milk Of Magnesia) 30 ml DAILYPRN PRN PO CONSTIPATION 07/16/19 12:45 Memantine (Namenda) 10 mg BID PO 07/16/19 21:00 07/20/19 21:42 Propranolol HCl (Inderal) 10 mg TID PO 07/16/19 16:00 07/20/19 21:42 Senna (Senokot) 1 tab QHS PO 07/16/19 21:00 07/20/19 21:43 Trazodone HCl (Desyrel) 25 mg DAILY@1900 PO 07/18/19 19:00 07/20/19 21:42 Trazodone HCl (Desyrel) 25 mg Q6HP PRN PO agitation 07/17/19 12:15 Trazodone HCl (Desyrel) 25 mg QHS PO 07/17/19 21:00 07/18/19 11:53 DC 07/17/19 21:07 Trimethoprim/ Sulfamethoxazole (Bactrim Ds, Septra Ds 160mg/ 800mg) 1 tab BID PO 07/16/19 21:00 07/30/19 09:01 07/21/19 12:11 EMILY MANLEY MD Jul 21, 2019 14:50
[2019-07-21 20:00] VITALS: BP 128/62
[2019-07-21] MEDS: ATORVASTATIN 20 MG TAB PO SCH (20:19)
[2019-07-21] MEDS: ARIPiprazole 2 MG TAB PO SCH (20:19)
[2019-07-21] MEDS: SENNA 8.6 MG TAB (SENOKOT) PO SCH (20:19)
[2019-07-21] MEDS: traZODone 25MG PER 1/2 TABLET PO SCH (20:19)
[2019-07-22 06:00] VITALS: BP 126/59
[2019-07-22] MEDS: HumaLOG INSULIN (NovoLOG) PER UNIT SC SCH ×4 (06:45→21:00)
[2019-07-22] MEDS: MAGIC MOUTHWASH SUSPENSION BTL XX SCH ×3 (07:30→16:55)
[2019-07-22] MEDS: BACTRIM 160MG/800MG DS TAB PO SCH ×3 (09:48→21:19)
[2019-07-22] MEDS: CLOPIDOGREL 75 MG TAB PO SCH ×2 (09:49→10:52)
[2019-07-22] MEDS: MEMANTINE 5MG TABLET (NAMENDA) PO SCH ×3 (09:49→21:21)
[2019-07-22] MEDS: DONEPEZIL 5 MG TAB PO SCH ×2 (09:49→10:52)
[2019-07-22] MEDS: CYANOCOBALAMIN 500 MCG TAB PO SCH (10:50)
[2019-07-22] MEDS: LANSOPRAZOLE SUSPENSION 30 MG/10 ML ORAL SYRINGE (FIRST-LANSOPRAZOLE) PO SCH (10:50)
[2019-07-22] MEDS: ASPIRIN 81 MG ENTERIC TAB PO SCH (10:50)
[2019-07-22] MEDS: DOCUSATE SODIUM 100 MG CAP PO SCH ×2 (10:50→21:19)
[2019-07-22] MEDS: PROPRANOLOL 10 MG TAB PO SCH ×3 (10:50→21:20)
[2019-07-22] MEDS: LACTOBACILLUS ACIDOPHILUS CAP (BACID) PO SCH ×3 (10:50→21:20)
[2019-07-22] MEDS: REMEDY PHYTOPLEX Z-GUARD PASTE 113GM TUBE (FROM STOREROOM PRODUCT) TOP SCH ×3 (10:51→21:00)
[2019-07-22] MEDS: HEPARIN SOD (PORCINE) 5000 UNITS/ML VIAL (J1644 PER 1000UNITS) SC SCH ×2 (10:51→21:21)
[2019-07-22 14:00] VITALS: BP 119/68
[2019-07-22 20:00] VITALS: BP 132/62
[2019-07-22] MEDS: ATORVASTATIN 20 MG TAB PO SCH (21:19)
[2019-07-22] MEDS: traZODone 25MG PER 1/2 TABLET PO SCH (21:19)
[2019-07-22] MEDS: ARIPiprazole 2 MG TAB PO SCH (21:21)
[2019-07-22] MEDS: SENNA 8.6 MG TAB (SENOKOT) PO SCH (21:21)
[2019-07-23 04:57] VITALS: BP 140/67
[2019-07-23] MEDS: REMEDY PHYTOPLEX Z-GUARD PASTE 113GM TUBE (FROM STOREROOM PRODUCT) TOP SCH ×3 (09:00→20:50)
[2019-07-23] MEDS: DOCUSATE SODIUM 100 MG CAP PO SCH ×3 (09:00→20:49)
[2019-07-23] MEDS: HEPARIN SOD (PORCINE) 5000 UNITS/ML VIAL (J1644 PER 1000UNITS) SC SCH ×2 (09:23→20:36)
[2019-07-23] MEDS: HumaLOG INSULIN (NovoLOG) PER UNIT SC SCH ×4 (09:23→20:49)
[2019-07-23] MEDS: LANSOPRAZOLE SUSPENSION 30 MG/10 ML ORAL SYRINGE (FIRST-LANSOPRAZOLE) PO SCH (09:23)
[2019-07-23] MEDS: ASPIRIN 81 MG ENTERIC TAB PO SCH (09:24)
[2019-07-23] MEDS: MAGIC MOUTHWASH SUSPENSION BTL XX SCH ×3 (09:24→17:47)
[2019-07-23] MEDS: PROPRANOLOL 10 MG TAB PO SCH ×3 (09:25→20:35)
[2019-07-23] MEDS: LACTOBACILLUS ACIDOPHILUS CAP (BACID) PO SCH ×3 (09:25→20:36)
[2019-07-23] MEDS: CYANOCOBALAMIN 500 MCG TAB PO SCH (09:25)
[2019-07-23] MEDS: MEMANTINE 5MG TABLET (NAMENDA) PO SCH ×2 (09:25→20:36)
[2019-07-23] MEDS: BACTRIM 160MG/800MG DS TAB PO SCH ×2 (09:25→20:36)
[2019-07-23] MEDS: CLOPIDOGREL 75 MG TAB PO SCH (09:25)
[2019-07-23] MEDS: DONEPEZIL 5 MG TAB PO SCH (09:25)
[2019-07-23 14:00] VITALS: BP 134/61
[2019-07-23 20:31] VITALS: BP 133/76
[2019-07-23] MEDS: traZODone 25MG PER 1/2 TABLET PO SCH (20:35)
[2019-07-23] MEDS: ARIPiprazole 2 MG TAB PO SCH (20:36)
[2019-07-23] MEDS: SENNA 8.6 MG TAB (SENOKOT) PO SCH (20:36)
[2019-07-23] MEDS: ATORVASTATIN 20 MG TAB PO SCH (20:36)
[2019-07-24 05:32] VITALS: BP 116/56
[2019-07-24 07:41] LABS: BASO % 0.5 % (0.0-1.0); EOS # 0.5 10^3/uL (0.0-0.5); EOS % 9.4 % (0.0-3.0); HEMATOCRIT 36.2 % (42.0-52.0); HEMOGLOBIN 12.2 g/dl (13.5-17.5); LYMPH # 1.5 10^3/uL (1.5-5.0); LYMPH % 26.4 % (24.0-44.0); MEAN CORPUSCULAR HEMOGLOBIN 30.8 pg (27.0-33.0); MEAN CORPUSCULAR HGB CONC 33.7 g/dl (32.0-36.5); MEAN CORPUSCULAR VOLUME 91.4 fl (80.0-96.0); MONO # 0.5 10^3/uL (0.0-0.8); MONO % 9.2 % (0.0-5.0); NEUTROPHILS # 3.1 10^3/uL (1.5-8.5); NEUTROPHILS % 54.3 % (36.0-66.0); PLATELET COUNT, AUTOMATED 158 10^3/uL (150-450); RED BLOOD COUNT 3.96 10^6/uL (4.30-6.10); WHITE BLOOD COUNT 5.6 10^3/uL (4.0-10.0)
[2019-07-24 08:00] LABS: CALCIUM LEVEL 8.7 MG/DL (8.8-10.2); CREATININE FOR GFR 1.36 MG/DL (0.70-1.30); GLOMERULAR FILTRATION RATE 53.7 (>35); POTASSIUM SERUM 4.3 MEQ/L (3.5-5.1)
[2019-07-24] MEDS: MEMANTINE 5MG TABLET (NAMENDA) PO SCH (08:44)
[2019-07-24] MEDS: BACTRIM 160MG/800MG DS TAB PO SCH (08:44)
[2019-07-24] MEDS: CLOPIDOGREL 75 MG TAB PO SCH (08:44)
[2019-07-24] MEDS: ASPIRIN 81 MG ENTERIC TAB PO SCH (08:44)
[2019-07-24] MEDS: LACTOBACILLUS ACIDOPHILUS CAP (BACID) PO SCH (08:45)
[2019-07-24] MEDS: CYANOCOBALAMIN 500 MCG TAB PO SCH (08:45)
[2019-07-24] MEDS: DONEPEZIL 5 MG TAB PO SCH (08:45)
[2019-07-24] MEDS: HEPARIN SOD (PORCINE) 5000 UNITS/ML VIAL (J1644 PER 1000UNITS) SC SCH (08:45)
[2019-07-24] MEDS: HumaLOG INSULIN (NovoLOG) PER UNIT SC SCH (08:46)
[2019-07-24] MEDS: DOCUSATE SODIUM 100 MG CAP PO SCH (08:46)
[2019-07-24] MEDS: MAGIC MOUTHWASH SUSPENSION BTL XX SCH (08:46)
[2019-07-24] MEDS: LANSOPRAZOLE SUSPENSION 30 MG/10 ML ORAL SYRINGE (FIRST-LANSOPRAZOLE) PO SCH (08:46)
[2019-07-24 08:49] VITALS: BP 116/56
[2019-07-24] MEDS: REMEDY PHYTOPLEX Z-GUARD PASTE 113GM TUBE (FROM STOREROOM PRODUCT) TOP SCH (08:49)
[2019-07-24] MEDS: PROPRANOLOL 10 MG TAB PO SCH (08:49)
--- NOTE | 2019-07-24 10:17 | IPNPDOC ---
PM&R Progress Note DATE OF SERVICE: Jul 22, 2019 Claims Counsel Progress Note Subjective: Patient refusing to take his meds this morning, but later was coaxed into taking them. REVIEW OF SYSTEMS: The following is a completed review of systems and has been reviewed. Review of systems otherwise unremarkable. 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 PHYSICAL EXAMINATION: VITAL SIGNS: Please see below. GENERAL: Pleasant and cooperative. No acute distress. HEENT: PERRL. Extraocular movements intact. Clear conjunctiva CARDIOVASCULAR: Regular rate and rhythm. No murmurs, rubs, or gallops LUNGS: Clear to auscultation bilaterally. No wheezes. No rhonchi ABDOMEN: Soft, nontender, nondistended. Positive bowel sounds. Normal active bowel sounds NEUROLOGICAL: Alert and oriented times three. Cranial nerves II through XII grossly intact. Sensation grossly intact EXTREMITIES: 5\5 strength bilateral upper extremities. 4\5 strength right lower extremity. 4/5 strength in left lower extremity. SKIN: intact ASSESSMENT:78-year-old M with past medical history of dementia who presents status post stroke PLAN: 1. 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 Cardiac: hx of diastolic CHF, c/u fluid restrict and monitor daily weights 4. Resp: monitor for infection, encourage incentive spirometry 5. Endo: hx of DM c/u ISS 6. GI ppx: protonix 7. DVT ppx: heparin and TEDs 8. Pain: Tylenol prn 9. : patient with +MRSA UTI, c/u Bactrim x 14 days- patient refusing to take meds at times, possible he is colonized as no white count or fever, will re- order repeat UA in the meantime to see if the current course of BActrim as treated his urine 10. Insomnia- c/u trazodone q7pm to avoid daytime somnolence 11. Dispo: TBD Allergies Coded Allergies: No Known Allergies (Unverified , 06/11/19) Vital Signs Vital Signs Date Time Temp Pulse Resp B/P (MAP) Pulse Ox O2 Delivery O2 Flow Rate FiO2 07/24/19 08:49 60 116/56 07/24/19 05:32 97.9 18 99 Room Air 07/19/19 06:00 138.0 67 Laboratory Data CBC/BMP Laboratory Tests 07/24/19 06:53 Labs 24H Laboratory Tests 2 07/23/19 11:34: Bedside Glucose (Misc Panel) 236H 07/23/19 16:52: Bedside Glucose (Misc Panel) 154H 07/23/19 20:11: Bedside Glucose (Misc Panel) 171H 07/24/19 05:17: Bedside Glucose (Misc Panel) 120H 07/24/19 06:53: Immature Granulocyte % (Auto) 0.2, Neutrophils (%) (Auto) 54.3, Lymphocytes (%) (Auto) 26.4, Monocytes (%) (Auto) 9.2H, Eosinophils (%) (Auto) 9.4H, Basophils (%) (Auto) 0.5, Neutrophils # (Auto) 3.1, Lymphocytes # (Auto) 1.5, Monocytes # (Auto) 0.5, Eosinophils # (Auto) 0.5, Basophils # (Auto) 0.0, Nucleated Red Blood Cells % (auto) 0.0, Anion Gap 4L, Glomerular Filtration Rate 53.7, Calcium Level 8.7L Current Medications Current Medications Current Medications Medications (Trade) Dose Ordered Sig/Vivien Route PRN Reason Start Time Stop Time Status Last Admin Dose Admin Acetaminophen (Tylenol Tab) 650 mg Q4HP PRN PO fever/MILD PAIN (PS 1-4) 07/16/19 15:00 07/19/19 20:00 Aripiprazole (AbiLIFY) 2 mg QHS PO 07/16/19 21:00 07/23/19 20:36 Aspirin (Ecotrin) 81 mg DAILY PO 07/17/19 09:00 07/24/19 08:44 Atorvastatin Calcium (Lipitor) 20 mg QHS PO 07/16/19 21:00 07/23/19 20:36 Bisacodyl (Dulcolax Suppository) 10 mg DAILYPRN PRN [place] CONSTIPATION 07/16/19 12:45 Clopidogrel Bisulfate (PLAVix) 75 mg DAILY PO 07/17/19 09:00 07/24/19 08:44 Cyanocobalamin (Vitamin B12) 1,000 mcg DAILY PO 07/17/19 09:00 07/24/19 08:45 Dextrose (Dextrose 50%) 25 ml ASDIRECTED PRN IV SEE LABEL COMMENTS 07/16/19 12:45 Docusate Sodium (Colace) 100 mg BID PO 07/16/19 21:00 07/22/19 21:19 Donepezil HCl (AriCEPT) 5 mg DAILY PO 07/17/19 09:00 07/24/19 08:45 Glucagon (Glucagon) 1 mg ASDIRECTED PRN SC SEE LABEL COMMENTS 07/16/19 12:45 Glucose (Glucose) 16 GM ASDIRECTED PRN PO SEE LABEL COMMENTS 07/16/19 12:45 Heparin Sodium (Porcine) (Heparin) 5,000 units Q12H SC 07/16/19 09:00 07/24/19 08:45 Insulin Human Lispro (HumaLOG INSULIN) SEE PROTOCOL TABLE AC SC 07/16/19 17:30 07/24/19 08:46 Insulin Human Lispro (HumaLOG INSULIN) SEE PROTOCOL TABLE QHS SC 07/16/19 21:00 07/17/19 21:09 Lactobacillus Acidophilus (Bacid) 1 ea TID PO 07/16/19 16:00 07/24/19 08:45 Lansoprazole (First-Lansoprazole Oral Suspension) 30 mg DAILY PO 07/17/19 09:00 07/24/19 08:46 Lidocaine/ Diphenhydr/Alum/ Mg/Simeth (Magic Mouthwash) 5ml AC XX 07/17/19 12:00 07/24/19 08:46 Magnesium Hydroxide (Milk Of Magnesia) 30 ml DAILYPRN PRN PO CONSTIPATION 07/16/19 12:45 Memantine (Namenda) 10 mg BID PO 07/16/19 21:00 07/24/19 08:44 Propranolol HCl (Inderal) 10 mg TID PO 07/16/19 16:00 07/24/19 08:49 Senna (Senokot) 1 tab QHS PO 07/16/19 21:00 07/23/19 20:36 Trazodone HCl (Desyrel) 25 mg DAILY@1900 PO 07/18/19 19:00 07/23/19 20:35 Trazodone HCl (Desyrel) 25 mg Q6HP PRN PO agitation 07/17/19 12:15 Trazodone HCl (Desyrel) 25 mg QHS PO 07/17/19 21:00 07/18/19 11:53 DC 07/17/19 21:07 Trimethoprim/ Sulfamethoxazole (Bactrim Ds, Septra Ds 160mg/ 800mg) 1 tab BID PO 07/16/19 21:00 07/30/19 09:01 07/24/19 08:44 EMILY MANLEY MD Jul 24, 2019 10:17
--- NOTE | 2019-07-24 10:49 | IPNPDOC ---
PM&R Progress Note DATE OF SERVICE: Jul 23, 2019 Legal Executive Progress Note Subjective: Patient seen walking in therapy, steady on his feet. REVIEW OF SYSTEMS: The following is a completed review of systems and has been reviewed. Review of systems otherwise unremarkable. 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 PHYSICAL EXAMINATION: VITAL SIGNS: Please see below. GENERAL: Pleasant and cooperative. No acute distress. HEENT: PERRL. Extraocular movements intact. Clear conjunctiva CARDIOVASCULAR: Regular rate and rhythm. No murmurs, rubs, or gallops LUNGS: Clear to auscultation bilaterally. No wheezes. No rhonchi ABDOMEN: Soft, nontender, nondistended. Positive bowel sounds. Normal active bowel sounds NEUROLOGICAL: Alert and oriented times three. Cranial nerves II through XII grossly intact. Sensation grossly intact EXTREMITIES: 5\5 strength bilateral upper extremities. 4\5 strength right lower extremity. 4/5 strength in left lower extremity. SKIN: intact ASSESSMENT:78-year-old M with past medical history of dementia who presents status post stroke PLAN: 1. 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 Cardiac: hx of diastolic CHF, c/u fluid restrict and monitor daily weights 4. Resp: monitor for infection, encourage incentive spirometry 5. Endo: hx of DM c/u ISS 6. GI ppx: protonix 7. DVT ppx: heparin and TEDs 8. Pain: Tylenol prn 9. : patient with +MRSA UTI, c/u Bactrim x 14 days- patient refusing to take meds at times, possible he is colonized as no white count or fever, will re- order repeat UA in the meantime to see if the current course of BActrim as treated his urine-nurses having difficulty collecting sample 10. Insomnia- c/u trazodone q7pm to avoid daytime somnolence 11. Dispo: patient is more appropriate for subacute rehab at this time Allergies Coded Allergies: No Known Allergies (Unverified , 06/11/19) Vital Signs Vital Signs Date Time Temp Pulse Resp B/P (MAP) Pulse Ox O2 Delivery O2 Flow Rate FiO2 07/24/19 08:49 60 116/56 07/24/19 05:32 97.9 18 99 Room Air 07/19/19 06:00 138.0 67 Laboratory Data CBC/BMP Laboratory Tests 07/24/19 06:53 Labs 24H Laboratory Tests 2 07/23/19 11:34: Bedside Glucose (Misc Panel) 236H 07/23/19 16:52: Bedside Glucose (Misc Panel) 154H 07/23/19 20:11: Bedside Glucose (Misc Panel) 171H 07/24/19 05:17: Bedside Glucose (Misc Panel) 120H 07/24/19 06:53: Immature Granulocyte % (Auto) 0.2, Neutrophils (%) (Auto) 54.3, Lymphocytes (%) (Auto) 26.4, Monocytes (%) (Auto) 9.2H, Eosinophils (%) (Auto) 9.4H, Basophils (%) (Auto) 0.5, Neutrophils # (Auto) 3.1, Lymphocytes # (Auto) 1.5, Monocytes # (Auto) 0.5, Eosinophils # (Auto) 0.5, Basophils # (Auto) 0.0, Nucleated Red Blood Cells % (auto) 0.0, Anion Gap 4L, Glomerular Filtration Rate 53.7, Calcium Level 8.7L Current Medications Current Medications Current Medications Medications (Trade) Dose Ordered Sig/Vivien Route PRN Reason Start Time Stop Time Status Last Admin Dose Admin Acetaminophen (Tylenol Tab) 650 mg Q4HP PRN PO fever/MILD PAIN (PS 1-4) 07/16/19 15:00 07/19/19 20:00 Aripiprazole (AbiLIFY) 2 mg QHS PO 07/16/19 21:00 07/23/19 20:36 Aspirin (Ecotrin) 81 mg DAILY PO 07/17/19 09:00 07/24/19 08:44 Atorvastatin Calcium (Lipitor) 20 mg QHS PO 07/16/19 21:00 07/23/19 20:36 Bisacodyl (Dulcolax Suppository) 10 mg DAILYPRN PRN [place] CONSTIPATION 07/16/19 12:45 Clopidogrel Bisulfate (PLAVix) 75 mg DAILY PO 07/17/19 09:00 07/24/19 08:44 Cyanocobalamin (Vitamin B12) 1,000 mcg DAILY PO 07/17/19 09:00 07/24/19 08:45 Dextrose (Dextrose 50%) 25 ml ASDIRECTED PRN IV SEE LABEL COMMENTS 07/16/19 12:45 Docusate Sodium (Colace) 100 mg BID PO 07/16/19 21:00 07/22/19 21:19 Donepezil HCl (AriCEPT) 5 mg DAILY PO 07/17/19 09:00 07/24/19 08:45 Glucagon (Glucagon) 1 mg ASDIRECTED PRN SC SEE LABEL COMMENTS 07/16/19 12:45 Glucose (Glucose) 16 GM ASDIRECTED PRN PO SEE LABEL COMMENTS 07/16/19 12:45 Heparin Sodium (Porcine) (Heparin) 5,000 units Q12H SC 07/16/19 09:00 07/24/19 08:45 Insulin Human Lispro (HumaLOG INSULIN) SEE PROTOCOL TABLE AC SC 07/16/19 17:30 07/24/19 08:46 Insulin Human Lispro (HumaLOG INSULIN) SEE PROTOCOL TABLE QHS SC 07/16/19 21:00 07/17/19 21:09 Lactobacillus Acidophilus (Bacid) 1 ea TID PO 07/16/19 16:00 07/24/19 08:45 Lansoprazole (First-Lansoprazole Oral Suspension) 30 mg DAILY PO 07/17/19 09:00 07/24/19 08:46 Lidocaine/ Diphenhydr/Alum/ Mg/Simeth (Magic Mouthwash) 5ml AC XX 07/17/19 12:00 07/24/19 08:46 Magnesium Hydroxide (Milk Of Magnesia) 30 ml DAILYPRN PRN PO CONSTIPATION 07/16/19 12:45 Memantine (Namenda) 10 mg BID PO 07/16/19 21:00 07/24/19 08:44 Propranolol HCl (Inderal) 10 mg TID PO 07/16/19 16:00 07/24/19 08:49 Senna (Senokot) 1 tab QHS PO 07/16/19 21:00 07/23/19 20:36 Trazodone HCl (Desyrel) 25 mg DAILY@1900 PO 07/18/19 19:00 07/23/19 20:35 Trazodone HCl (Desyrel) 25 mg Q6HP PRN PO agitation 07/17/19 12:15 Trazodone HCl (Desyrel) 25 mg QHS PO 07/17/19 21:00 07/18/19 11:53 DC 07/17/19 21:07 Trimethoprim/ Sulfamethoxazole (Bactrim Ds, Septra Ds 160mg/ 800mg) 1 tab BID PO 07/16/19 21:00 07/30/19 09:01 07/24/19 08:44 EMILY MANLEY MD Jul 24, 2019 10:49
[2019-07-24] MEDS ORDERED: BACT800T5 PO (11:21)
--- NOTE | 2019-08-05 20:40 | PMRDS ---
DATE OF ADMISSION: 07/16/2019 DATE OF DISCHARGE: 07/24/2019 CHIEF COMPLAINT/DISCHARGE DIAGNOSIS: Stroke. HISTORY OF PRESENT ILLNESS: 78-year-old male with a past medical history of Alzheimers dementia, chronic obstructive pulmonary disease (COPD), hypertension, diastolic congestive heart failure (CHF), diabetes mellitus, B12 deficiency, who developed right facial droop and right sided weakness and was brought to [facility] emergency department on 07/12/2019 with CTA showing, Low-attenuation area in the high left parietal lobe representing acute/subacuteinfarct. MRI demonstrated, 5.5 x 3.5 cm area of restricted diffusion in the left frontal lobe consistent with acute infarction in the anterior distribution of the left middle cerebral artery. Small 8 mm focus of restricted diffusion is seen in the left posterior parietal subcortical white matter consistent with acute lacunar infarctionNo acute hemorrhage, mass or midline shift is seenStable chronic focal infarction in the left parieto-occipital lobe. CTA showed he was evaluated by neurology who encouraged patient to take aspirin, which he had neglected to take at home, and to continue statin therapy. Echo showed, Mildly dilated left ventricle with mild left ventricular hypertrophy (LVH), subtle septal wall motion abnormality and overall preserved left ventricular (LV)systolic function. Grade 1 diastolic dysfunction. He had episodes of sun-downing and required a sitter in addition to Haldol. He developed a fever with UA suspicious for infection, was evaluate by therapy and found to have mobility and activities of daily living impairments, deemed medically appropriate for discharge to acute rehabilitation unit on 07/16/2019. PAST MEDICAL HISTORY: As per history of present illness (HPI). HOSPITAL COURSE: The patient was admitted and enrolled in a comprehensive physical therapy (PT), occupational therapy (OT), speech and language pathology program. He received 24-hour nursing supervision and weekly team meetings were held to discuss his progress. The patient was found to have a positive methicillin-resistant Staphylococcus aureus (MRSA) urinary tract infection (UTI) and was started on Bactrim with transient increase in his creatinine. At times, the patient refused to take his Bactrim, did not develop leukocytosis or fever, and attempt to obtain repeat urinalysis (UA) failed prior to discharge. The patient had episodes of sundowning and agitation and frequently declined taking many of his other medications as well. The patient was able to ambulate and perform some functional tasks in therapy; however, mostly was self-directed with severe dementia. He was deemed medically and functionally stable for discharge to subacute rehabilitation. DISCHARGE MEDICATIONS: As per instructions. FUNCTIONAL HISTORY: On discharge, the patient was contact guard to minimum assist for ambulation and functional transfers, and in occupational therapy, he was standby assist for lower body dressing and toileting. Thank you for this referral.
== END 2019-07-24 11:01 | DRG 57 ==
LOC: M PM&R 07-16 14:15 → EEVIPCON 07-16 14:15
PROVIDERS: ADMIT Physical Medicine & Rehabilitation; ATTEND Physical Medicine & Rehabilitation
DX: I69.351 Hemiplegia and hemiparesis following cerebral infarction affecting right dominant side (principal); I50.32 Chronic diastolic (congestive) heart failure; F05 Delirium due to known physiological condition; N39.0 Urinary tract infection, site not specified; I69.391 Dysphagia following cerebral infarction; F02.80 Dementia in other diseases classified elsewhere, unspecified severity, without behavioral disturbance, psychotic disturbance, mood disturbance, and anxiety; G30.9 Alzheimer's disease, unspecified; J44.9 Chronic obstructive pulmonary disease, unspecified; I11.0 Hypertensive heart disease with heart failure; E11.9 Type 2 diabetes mellitus without complications; E53.8 Deficiency of other specified B group vitamins; Z91.14 Patient's other noncompliance with medication regimen; R13.10 Dysphagia, unspecified; Z79.82 Long term (current) use of aspirin; Z79.01 Long term (current) use of anticoagulants; Z79.4 Long term (current) use of insulin; Z79.899 Other long term (current) drug therapy; G47.00 Insomnia, unspecified; B95.62 Methicillin resistant Staphylococcus aureus infection as the cause of diseases classified elsewhere

== ENCOUNTER → 2019-08-08 | Outpatient (REF) | payer MEDICARE, MEDICAID ==
[~2019-08-08] MED LIST changes: +BACT800T5 PO; +CLOP75TA2 PO
[2019-08-08 07:35] LABS: BLOOD UREA NITROGEN 21 MG/DL (7-18); CALCIUM LEVEL 8.8 MG/DL (8.8-10.2); CARBON DIOXIDE LEVEL 32 MEQ/L (21-32); CHLORIDE LEVEL 105 MEQ/L (98-107); CREATININE FOR GFR 1.14 MG/DL (0.70-1.30); GLOMERULAR FILTRATION RATE > 60.0 (>35); GLUCOSE, FASTING 191 MG/DL (70-100); POTASSIUM SERUM 4.2 MEQ/L (3.5-5.1); SODIUM LEVEL 137 MEQ/L (136-145)
[2019-08-08 07:36] LABS: HEMOGLOBIN A1c 7.6 %
== END ==
LOC: SKLAB8 07:00
PROVIDERS: ATTEND Family Medicine
DX: E11.40 Type 2 diabetes mellitus with diabetic neuropathy, unspecified (principal)

== ENCOUNTER → 2019-08-14 | Outpatient (REF) | payer MEDICARE, MEDICAID ==
[2019-08-14 14:41] LABS: BASO % 0.2 % (0.0-1.0); EOS # 0.1 10^3/uL (0.0-0.5); EOS % 0.5 % (0.0-3.0); HEMATOCRIT 34.9 % (42.0-52.0); HEMOGLOBIN 11.4 g/dl (13.5-17.5); LYMPH # 0.5 10^3/uL (1.5-5.0); MEAN CORPUSCULAR HEMOGLOBIN 30.5 pg (27.0-33.0); MEAN CORPUSCULAR HGB CONC 32.7 g/dl (32.0-36.5); MEAN CORPUSCULAR VOLUME 93.3 fl (80.0-96.0); MONO # 1.1 10^3/uL (0.0-0.8); MONO % 10.6 % (0.0-5.0); NEUTROPHILS # 8.6 10^3/uL (1.5-8.5); NEUTROPHILS % 83.1 % (36.0-66.0); PLATELET COUNT, AUTOMATED 115 10^3/uL (150-450); RED BLOOD COUNT 3.74 10^6/uL (4.30-6.10); WHITE BLOOD COUNT 10.3 10^3/uL (4.0-10.0)
[2019-08-14 15:14] LABS: ALBUMIN 3.5 GM/DL (3.2-5.2); BILIRUBIN,TOTAL 0.8 MG/DL (0.2-1.0); CALCIUM LEVEL 8.5 MG/DL (8.8-10.2); CREATININE FOR GFR 1.33 MG/DL (0.70-1.30); GLOMERULAR FILTRATION RATE 55.1 (>35); TOTAL PROTEIN 7.1 GM/DL (6.4-8.2)
--- NOTE | 2019-08-14 15:39 | REP ---
CHEST, SINGLE VIEW: Single view of the chest is performed. Comparison 07/15/2019. I see no acute infiltrate. Patient's chin overlies the left lung apex limiting evaluation of that area. Cardiac silhouette is slightly prominent. There is tortuosity of the thoracic aorta. Multiple sternal wires and mediastinal clips are present. IMPRESSION: No evidence of acute infiltrate. Electronically Signed by Edy Santoyo MD 08/14/2019 05:00 P
== END ==
LOC: SKLAB8 13:00
PROVIDERS: ATTEND Family Medicine
DX: R39.198 Other difficulties with micturition (principal)
CPT/HCPCS: 36415; 71045; 80053; 85025; 87040; 87486; 87581; 87633; 87798; U0002

== ENCOUNTER → 2019-08-15 | Outpatient (REF) | payer MEDICARE, MEDICAID | LOC: SKLAB8 20:45 | PROVIDERS: ATTEND Family Medicine | DX: R39.89 Other symptoms and signs involving the genitourinary system (principal); Z79.899 Other long term (current) drug therapy ==

== ENCOUNTER → 2019-08-15 | Outpatient (REF) | payer MEDICARE, MEDICAID ==
[2019-08-15 10:34] LABS: HEMATOCRIT 33.1 % (42.0-52.0); HEMOGLOBIN 10.9 g/dl (13.5-17.5); MEAN CORPUSCULAR HGB CONC 32.9 g/dl (32.0-36.5); PLATELET COUNT, AUTOMATED 107 10^3/uL (150-450); RED BLOOD COUNT 3.52 10^6/uL (4.30-6.10); WHITE BLOOD COUNT 5.1 10^3/uL (4.0-10.0)
[2019-08-15 12:43] LABS: BLOOD UREA NITROGEN 35 MG/DL (7-18); CALCIUM LEVEL 8.2 MG/DL (8.8-10.2); CARBON DIOXIDE LEVEL 25 MEQ/L (21-32); CHLORIDE LEVEL 107 MEQ/L (98-107); CREATININE FOR GFR 1.16 MG/DL (0.70-1.30); GLOMERULAR FILTRATION RATE > 60.0 (>35); GLUCOSE, FASTING 176 MG/DL (70-100); POTASSIUM SERUM 3.7 MEQ/L (3.5-5.1); SODIUM LEVEL 138 MEQ/L (136-145)
[2019-08-15 18:00] LABS: APPEARANCE, URINE CLEAR (CLEAR); BACTERIA, URINE AUTO NEGATIVE (NEGATIVE); BILIRUBIN, URINE AUTO NEGATIVE (NEGATIVE); BLOOD, URINE BLOOD NEGATIVE (NEGATIVE); COLOR, URINE YELLOW (YELLOW); GLUCOSE, URINE (UA) AUTO 1+ mg/dL (NEGATIVE); KETONE, URINE AUTO NEGATIVE (NEGATIVE); LEUKOCYTE ESTERASE, URINE AUTO NEGATIVE (NEGATIVE); MUCUS, URINE SMALL (NEGATIVE); NITRITE, URINE AUTO NEGATIVE (NEGATIVE); PROTEIN, URINE AUTO NEGATIVE (NEGATIVE); RBC, URINE AUTO 0 /HPF (0-3); SPECIFIC GRAVITY URINE AUTO 1.026 (1.002-1.035); SQUAMOUS EPITHELIAL CELL UR AU 0 /HPF (0-6); UROBILINOGEN, URINE AUTO 0.2 mg/dL (0.0-2.0); WBC, URINE AUTO 2 /HPF (0-3)
== END ==
LOC: SKLAB8 17:09
PROVIDERS: ATTEND Family Medicine
DX: R39.89 Other symptoms and signs involving the genitourinary system (principal)

== ENCOUNTER → 2019-08-22 | Outpatient (REF) | payer MEDICARE, MEDICAID ==
[2019-08-22 10:31] LABS: HEMATOCRIT 31.6 % (42.0-52.0); HEMOGLOBIN 10.4 g/dl (13.5-17.5); MEAN CORPUSCULAR HGB CONC 32.9 g/dl (32.0-36.5); PLATELET COUNT, AUTOMATED 125 10^3/uL (150-450); RED BLOOD COUNT 3.36 10^6/uL (4.30-6.10); WHITE BLOOD COUNT 5.1 10^3/uL (4.0-10.0)
[2019-08-22 10:55] LABS: BLOOD UREA NITROGEN 21 MG/DL (7-18); CARBON DIOXIDE LEVEL 31 MEQ/L (21-32); CHLORIDE LEVEL 108 MEQ/L (98-107); GLOMERULAR FILTRATION RATE > 60.0 (>35); GLUCOSE, FASTING 153 MG/DL (70-100); SODIUM LEVEL 142 MEQ/L (136-145)
== END ==
LOC: SKLAB8 10:00
PROVIDERS: ATTEND Family Medicine
DX: E78.5 Hyperlipidemia, unspecified (principal)

== ENCOUNTER → 2019-09-09 | Outpatient (REF) | payer MEDICARE, MEDICAID | LOC: SKLAB8 13:00 | PROVIDERS: ATTEND Family Medicine | DX: Z11.2 Encounter for screening for other bacterial diseases (principal) ==

== ENCOUNTER → 2019-09-16 | Outpatient (REF) | payer MEDICARE, MEDICAID | LOC: SKLAB8 11:00 | PROVIDERS: ATTEND Family Medicine | DX: Z11.2 Encounter for screening for other bacterial diseases (principal) ==

== ENCOUNTER → 2019-09-23 | Outpatient (REF) | payer MEDICARE, MEDICAID ==
[2019-09-23 08:44] LABS: BASO % 0.4 % (0.0-1.0); EOS # 0.5 10^3/uL (0.0-0.5); EOS % 7.2 % (0.0-3.0); HEMATOCRIT 33.1 % (42.0-52.0); HEMOGLOBIN 11.2 g/dl (13.5-17.5); LYMPH # 1.1 10^3/uL (1.5-5.0); LYMPH % 16.5 % (24.0-44.0); MEAN CORPUSCULAR HEMOGLOBIN 31.6 pg (27.0-33.0); MEAN CORPUSCULAR HGB CONC 33.8 g/dl (32.0-36.5); MEAN CORPUSCULAR VOLUME 93.5 fl (80.0-96.0); MONO # 0.7 10^3/uL (0.0-0.8); MONO % 9.8 % (0.0-5.0); NEUTROPHILS # 4.4 10^3/uL (1.5-8.5); NEUTROPHILS % 65.8 % (36.0-66.0); PLATELET COUNT, AUTOMATED 126 10^3/uL (150-450); RED BLOOD COUNT 3.54 10^6/uL (4.30-6.10); WHITE BLOOD COUNT 6.7 10^3/uL (4.0-10.0)
[2019-09-23 09:15] LABS: ALBUMIN 3.3 GM/DL (3.2-5.2); ALT/SGPT 22 U/L (12-78); BILIRUBIN,TOTAL 0.5 MG/DL (0.2-1.0); BLOOD UREA NITROGEN 21 MG/DL (7-18); CALCIUM LEVEL 8.6 MG/DL (8.8-10.2); CARBON DIOXIDE LEVEL 27 MEQ/L (21-32); CHLORIDE LEVEL 106 MEQ/L (98-107); CHOLESTEROL LEVEL 110 MG/DL (<200); GLOMERULAR FILTRATION RATE > 60.0 (>35); GLUCOSE, FASTING 168 MG/DL (70-100); HDL CHOLESTEROL 55 MG/DL (>40); LDL CHOLESTEROL 43 MG/DL (<100); NON-HDL-C 55 MG/DL; POTASSIUM SERUM 4.3 MEQ/L (3.5-5.1); SODIUM LEVEL 140 MEQ/L (136-145); TOTAL PROTEIN 6.9 GM/DL (6.4-8.2); TRIGLYCERIDES LEVEL 61 MG/DL (<150)
== END ==
LOC: SKLAB8 08:00
PROVIDERS: ATTEND Family Medicine
DX: F03.90 Unspecified dementia, unspecified severity, without behavioral disturbance, psychotic disturbance, mood disturbance, and anxiety (principal); I11.0 Hypertensive heart disease with heart failure; I10 Essential (primary) hypertension; E78.5 Hyperlipidemia, unspecified; I50.30 Unspecified diastolic (congestive) heart failure; Z79.899 Other long term (current) drug therapy

== ENCOUNTER → 2019-10-06 | Outpatient (REF) | payer MEDICARE, MEDICAID | LOC: SKLAB8 15:00 | PROVIDERS: ATTEND Family Medicine | DX: E11.9 Type 2 diabetes mellitus without complications (principal); I10 Essential (primary) hypertension; E78.5 Hyperlipidemia, unspecified ==

== ENCOUNTER → 2019-10-09 | Outpatient (REF) | payer MEDICARE, MEDICAID | LOC: SKLAB8 07:00 | PROVIDERS: ATTEND Family Medicine | DX: E53.9 Vitamin B deficiency, unspecified (principal); A49.02 Methicillin resistant Staphylococcus aureus infection, unspecified site ==

== ENCOUNTER → 2019-10-23 | Outpatient (REF) | payer MEDICARE, MEDICAID | LOC: SKLAB8 13:45 | PROVIDERS: ATTEND Family Medicine | DX: Z79.899 Other long term (current) drug therapy (principal) ==

== ENCOUNTER → 2019-11-17 | Outpatient (REF) | payer MEDICARE, MEDICAID | LOC: SKLAB8 09:32 | PROVIDERS: ATTEND Family Medicine | DX: Z86.14 Personal history of Methicillin resistant Staphylococcus aureus infection (principal) ==

== ENCOUNTER → 2019-11-24 | Outpatient (REF) | payer MEDICARE, MEDICAID | LOC: SKLAB8 10:00 | PROVIDERS: ATTEND Family Medicine | DX: Z13.71 Encounter for nonprocreative screening for genetic disease carrier status (principal) ==

== ENCOUNTER → 2019-12-04 | Outpatient (REF) | payer MEDICARE, MEDICAID ==
[~2019-12-04] MED LIST changes: -ASPI81TA85 PO; +ASPI81TA86 PO
[2019-12-04 10:15] LABS: HEMATOCRIT 35.6 % (42.0-52.0); HEMOGLOBIN 11.8 g/dl (13.5-17.5); MEAN CORPUSCULAR HEMOGLOBIN 30.5 pg (27.0-33.0); MEAN CORPUSCULAR HGB CONC 33.1 g/dl (32.0-36.5); PLATELET COUNT, AUTOMATED 110 10^3/uL (150-450); RED BLOOD COUNT 3.87 10^6/uL (4.30-6.10); WHITE BLOOD COUNT 6.4 10^3/uL (4.0-10.0)
== END ==
LOC: SKLAB8 07:00
DX: F03.90 Unspecified dementia, unspecified severity, without behavioral disturbance, psychotic disturbance, mood disturbance, and anxiety (principal)

== ENCOUNTER → 2020-01-08 | Outpatient (REF) | payer MEDICARE, MEDICAID ==
[2019-12-05 14:31] LABS: HEMATOCRIT 33.6 % (42.0-52.0); HEMOGLOBIN 11.2 g/dl (13.5-17.5); MEAN CORPUSCULAR HEMOGLOBIN 30.1 pg (27.0-33.0); MEAN CORPUSCULAR HGB CONC 33.3 g/dl (32.0-36.5); MEAN CORPUSCULAR VOLUME 90.3 fl (80.0-96.0); PLATELET COUNT, AUTOMATED 102 10^3/uL (150-450); RED BLOOD COUNT 3.72 10^6/uL (4.30-6.10); WHITE BLOOD COUNT 4.8 10^3/uL (4.0-10.0)
[2019-12-05 14:58] LABS: ALBUMIN 3.2 GM/DL (3.2-5.2); ALT/SGPT 28 U/L (12-78); BILIRUBIN,TOTAL 0.5 MG/DL (0.2-1.0); BLOOD UREA NITROGEN 24 MG/DL (7-18); CALCIUM LEVEL 8.5 MG/DL (8.8-10.2); CARBON DIOXIDE LEVEL 27 MEQ/L (21-32); CHLORIDE LEVEL 108 MEQ/L (98-107); CREATININE FOR GFR 1.04 MG/DL (0.70-1.30); GLOMERULAR FILTRATION RATE > 60.0 (>35); GLUCOSE, FASTING 135 MG/DL (70-100); POTASSIUM SERUM 3.9 MEQ/L (3.5-5.1); SODIUM LEVEL 140 MEQ/L (136-145); TOTAL PROTEIN 6.7 GM/DL (6.4-8.2)
[2019-12-05 19:34] LABS: APPEARANCE, URINE HAZY (CLEAR); BACTERIA, URINE AUTO NEGATIVE (NEGATIVE); BILIRUBIN, URINE AUTO NEGATIVE (NEGATIVE); BLOOD, URINE BLOOD NEGATIVE (NEGATIVE); COLOR, URINE YELLOW (YELLOW); GLUCOSE, URINE (UA) AUTO 2+ mg/dL (NEGATIVE); KETONE, URINE AUTO NEGATIVE (NEGATIVE); LEUKOCYTE ESTERASE, URINE AUTO NEGATIVE (NEGATIVE); MUCUS, URINE SMALL (NEGATIVE); NITRITE, URINE AUTO NEGATIVE (NEGATIVE); PROTEIN, URINE AUTO NEGATIVE (NEGATIVE); RBC, URINE AUTO 3 /HPF (0-3); SPECIFIC GRAVITY URINE AUTO 1.025 (1.002-1.035); SQUAMOUS EPITHELIAL CELL UR AU 1 /HPF (0-6); WBC, URINE AUTO 1 /HPF (0-3)
== END ==
LOC: SKLAB8 07:00
DX: E78.5 Hyperlipidemia, unspecified (principal); Z79.899 Other long term (current) drug therapy

== ENCOUNTER → 2020-01-08 | Outpatient (REF) | payer MEDICARE, MEDICAID ==
[2020-01-08 19:32] LABS: BASO % 0.5 % (0.0-1.0); EOS # 0.4 10^3/uL (0.0-0.5); EOS % 6.4 % (0.0-3.0); HEMATOCRIT 37.3 % (42.0-52.0); HEMOGLOBIN 12.2 g/dl (13.5-17.5); LYMPH # 1.5 10^3/uL (1.5-5.0); LYMPH % 24.7 % (24.0-44.0); MEAN CORPUSCULAR HEMOGLOBIN 30.7 pg (27.0-33.0); MEAN CORPUSCULAR HGB CONC 32.7 g/dl (32.0-36.5); MONO # 0.5 10^3/uL (0.0-0.8); MONO % 8.9 % (0.0-5.0); NEUTROPHILS # 3.5 10^3/uL (1.5-8.5); NEUTROPHILS % 59.3 % (36.0-66.0); PLATELET COUNT, AUTOMATED 118 10^3/uL (150-450); RED BLOOD COUNT 3.97 10^6/uL (4.30-6.10)
[2020-01-08 20:13] LABS: ALBUMIN 3.5 GM/DL (3.2-5.2); ALT/SGPT 49 U/L (12-78); BLOOD UREA NITROGEN 18 MG/DL (7-18); CALCIUM LEVEL 8.6 MG/DL (8.8-10.2); CARBON DIOXIDE LEVEL 27 MEQ/L (21-32); CHLORIDE LEVEL 107 MEQ/L (98-107); CREATININE FOR GFR 1.12 MG/DL (0.70-1.30); GLOMERULAR FILTRATION RATE > 60.0 (>35); GLUCOSE, FASTING 98 MG/DL (70-100); POTASSIUM SERUM 4.1 MEQ/L (3.5-5.1); SODIUM LEVEL 140 MEQ/L (136-145); TOTAL PROTEIN 7.1 GM/DL (6.4-8.2)
[2020-01-08 20:20] LABS: BILIRUBIN,TOTAL 0.4 MG/DL (0.2-1.0)
[2020-01-08 20:47] LABS: ERYTHROCYTE SEDIMENTATION RATE 16 mm/hr (0-20)
== END ==
LOC: SKLAB8 07:00
DX: E53.8 Deficiency of other specified B group vitamins (principal)

== ENCOUNTER → 2020-02-05 | Outpatient (REF) | payer MEDICARE, MEDICAID | LOC: SKLAB8 07:00 | DX: E11.9 Type 2 diabetes mellitus without complications (principal); Z79.4 Long term (current) use of insulin ==

== ENCOUNTER → 2020-02-24 | Outpatient (CLI) | payer MEDICARE, MEDICAID ==
--- NOTE | 2020-02-24 14:54 | REPVR ---
PROCEDURE INFORMATION: Exam: US Duplex Right Upper Extremity Veins, Limited Exam date and time: 02/24/2020 2:46 PM Age: 79 years old Clinical indication: Pain; Arm, upper; Right; Additional info: RT arm pain / swelling ? dvt TECHNIQUE: Imaging protocol: Real-time Duplex ultrasound of the Right Upper Extremity with 2-D kevin scale, color Doppler flow and spectral waveform analysis with image documentation. Limited exam focused on the right upper extremity veins. COMPARISON: No relevant prior studies available. FINDINGS: Right deep veins: Unremarkable. Axillary and paired brachial veins are patent throughout without thrombus. Normal Doppler waveforms. Normal compressibility and/or augmentation response. Visualized internal jugular and subclavian veins are patent. Right superficial veins: Unremarkable. Visualized cephalic and basilic veins are patent without thrombus. Soft tissues: Unremarkable. IMPRESSION: No deep venous thrombus demonstrated in the right upper extremity. Electronically signed by: Juan Luis Santana On 02/24/2020 14:53:59 PM
== END ==
LOC: M RAD 14:11
PROVIDERS: ATTEND Nurse Practitioner
DX: R22.31 Localized swelling, mass and lump, right upper limb (principal); M79.601 Pain in right arm

== ENCOUNTER → 2020-02-27 | Outpatient (REF) | payer MEDICARE, MEDICAID | LOC: SKLAB8 12:30 | DX: Z86.14 Personal history of Methicillin resistant Staphylococcus aureus infection (principal) ==

== ENCOUNTER → 2020-03-05 | Outpatient (REF) | payer MEDICARE, MEDICAID | LOC: SKLAB8 07:00 | DX: Z86.14 Personal history of Methicillin resistant Staphylococcus aureus infection (principal) ==

== ENCOUNTER → 2020-03-12 | Outpatient (REF) | payer MEDICARE, MEDICAID | LOC: SKLAB8 11:36 | DX: Z86.14 Personal history of Methicillin resistant Staphylococcus aureus infection (principal) ==

== ENCOUNTER → 2020-03-16 | Outpatient (REF) | payer MEDICARE, MEDICAID ==
--- NOTE | 2020-03-16 15:33 | REP ---
INDICATION: CONSTIPATION. COMPARISON: Comparison study September 09, 2018.. TECHNIQUE: Single AP view. FINDINGS: There is a levoconvex lumbar scoliotic curve. Degenerative disc disease is seen diffusely, most pronounced at L4-5. Psoas margins are symmetric. The bowel gas pattern is unremarkable. There is air and stool in the proximal and distal colon but no evidence radiographically this to suggest constipation. Fairly prominent fat as deferens calcification is seen along with vascular calcification. No mass, organomegaly or other pathologic calcification is seen. IMPRESSION: Unremarkable bowel gas pattern. No radiographic evidence to suggest obstipation. <Electronically signed by Ralph Chavis > 03/16/20 [id number]
== END ==
LOC: SKLAB8 15:00
DX: M51.36 Other intervertebral disc degeneration, lumbar region (principal)

== ENCOUNTER → 2020-04-07 | Outpatient (REF) | payer MEDICARE, MEDICAID ==
[~2020-04-07] MED LIST changes: +CYAN500T14 PO; -CYAN500T8 PO; +GABA-282 PO; -GABA-843 PO
== END ==
LOC: SKLAB8 04-06 14:14 → EDSTATUS 05-15 09:14
DX: Z20.828 Contact with and (suspected) exposure to other viral communicable diseases (principal)

== ENCOUNTER → 2020-04-08 | Outpatient (REF) | payer MEDICARE, MEDICAID ==
[2020-04-08 11:15] LABS: BASO % 0.3 % (0.0-1.0); EOS # 0.3 10^3/uL (0.0-0.5); EOS % 4.3 % (0.0-3.0); HEMATOCRIT 36.1 % (42.0-52.0); HEMOGLOBIN 11.7 g/dl (13.5-17.5); LYMPH # 1.1 10^3/uL (1.5-5.0); LYMPH % 18.9 % (24.0-44.0); MEAN CORPUSCULAR HGB CONC 32.4 g/dl (32.0-36.5); MEAN CORPUSCULAR VOLUME 92.6 fl (80.0-96.0); MONO # 0.6 10^3/uL (0.0-0.8); MONO % 9.1 % (0.0-5.0); NEUTROPHILS % 66.9 % (36.0-66.0)
[2020-04-08 11:19] LABS: PLATELET COUNT, AUTOMATED 93 10^3/uL (150-450)
[2020-04-08 11:43] LABS: ALBUMIN 3.3 GM/DL (3.2-5.2); ALT/SGPT 36 U/L (12-78); BILIRUBIN,TOTAL 0.5 MG/DL (0.2-1.0); BLOOD UREA NITROGEN 23 MG/DL (7-18); CALCIUM LEVEL 8.8 MG/DL (8.8-10.2); CARBON DIOXIDE LEVEL 31 MEQ/L (21-32); CHLORIDE LEVEL 104 MEQ/L (98-107); CREATININE FOR GFR 1.17 MG/DL (0.70-1.30); GLOMERULAR FILTRATION RATE > 60.0 (>35); GLUCOSE, FASTING 232 MG/DL (70-100); POTASSIUM SERUM 4.2 MEQ/L (3.5-5.1); SODIUM LEVEL 139 MEQ/L (136-145); TOTAL PROTEIN 6.8 GM/DL (6.4-8.2)
== END ==
LOC: SKLAB8 07:00
DX: Z86.14 Personal history of Methicillin resistant Staphylococcus aureus infection (principal)

== ENCOUNTER → 2020-04-14 | Outpatient (REF) | payer MEDICARE | LOC: SKLAB8 08:00 | PROVIDERS: ATTEND Internal Medicine | DX: Z20.828 Contact with and (suspected) exposure to other viral communicable diseases (principal) ==

== ENCOUNTER → 2020-04-21 | Outpatient (REF) | payer MEDICARE ==
[2020-04-14 11:24] LABS: INFLUENZA A AMPLIFICATION NEGATIVE (NEGATIVE); INFLUENZA B AMPLIFICATION NEGATIVE (NEGATIVE)
== END ==
LOC: SKLAB8 08:00
PROVIDERS: ATTEND Internal Medicine
DX: Z20.828 Contact with and (suspected) exposure to other viral communicable diseases (principal)
CPT/HCPCS: 87502; U0003

== ENCOUNTER → 2020-04-28 | Outpatient (REF) | payer MEDICARE, MEDICAID ==
[~2020-04-28] MED LIST changes: -GABA-282 PO; +GABA-843 PO
== END ==
LOC: SKLAB8 11:00
DX: Z20.828 Contact with and (suspected) exposure to other viral communicable diseases (principal)

== ENCOUNTER → 2020-04-29 | Outpatient (REF) | payer MEDICARE ==
[2020-04-29 14:26] LABS: HEMATOCRIT 36.5 % (42.0-52.0); HEMOGLOBIN 11.8 g/dl (13.5-17.5); MEAN CORPUSCULAR HEMOGLOBIN 29.9 pg (27.0-33.0); MEAN CORPUSCULAR HGB CONC 32.3 g/dl (32.0-36.5); MEAN CORPUSCULAR VOLUME 92.6 fl (80.0-96.0); RED BLOOD COUNT 3.94 10^6/uL (4.30-6.10); WHITE BLOOD COUNT 9.2 10^3/uL (4.0-10.0)
[2020-04-29 14:31] LABS: PLATELET COUNT, AUTOMATED 95 10^3/uL (150-450)
[2020-04-29 14:49] LABS: CALCIUM LEVEL 8.3 MG/DL (8.8-10.2); CREATININE FOR GFR 1.24 MG/DL (0.70-1.30); GLOMERULAR FILTRATION RATE 59.6 (>35)
== END ==
LOC: SKLAB8 07:00
DX: R55 Syncope and collapse (principal)

== ENCOUNTER → 2020-05-05 | Outpatient (REF) | payer MEDICARE | LOC: SKLAB8 09:50 | DX: Z20.828 Contact with and (suspected) exposure to other viral communicable diseases (principal) ==

== ENCOUNTER → 2020-05-06 | Outpatient (REF) | payer MEDICARE ==
[2020-05-06 15:21] LABS: HEMOGLOBIN A1c 8.3 %
== END ==
LOC: SKLAB8 10:00
DX: E11.9 Type 2 diabetes mellitus without complications (principal)

== ENCOUNTER → 2020-05-12 | Outpatient (REF) | payer MEDICARE | LOC: SKLAB8 10:00 | DX: Z20.828 Contact with and (suspected) exposure to other viral communicable diseases (principal) ==

== ENCOUNTER → 2020-05-19 | Outpatient (REF) | payer MEDICARE | LOC: SKLAB8 10:00 | DX: Z20.828 Contact with and (suspected) exposure to other viral communicable diseases (principal) ==

== ENCOUNTER → 2020-05-26 | Outpatient (REF) | payer MEDICARE, MEDICAID | LOC: SKLAB8 07:00 | PROVIDERS: ATTEND Internal Medicine | DX: Z11.52 Encounter for screening for COVID-19 (principal) ==

== ENCOUNTER → 2020-05-27 | Outpatient (REF) | payer MEDICARE, MEDICAID ==
[2020-05-27 11:29] LABS: FREE T4 0.94 NG/DL (0.76-1.46); THYROID STIMULATING HORMONE 4.05 uIU/ML (0.358-3.740)
== END ==
LOC: SKLAB8 07:00
DX: E05.90 Thyrotoxicosis, unspecified without thyrotoxic crisis or storm (principal)

== ENCOUNTER → 2020-06-02 | Outpatient (REF) | payer MEDICARE, MEDICAID ==
[~2020-06-02] MED LIST changes: +GABA-282 PO; -GABA-843 PO
== END ==
LOC: SKLAB8 10:00
PROVIDERS: ATTEND Internal Medicine
DX: Z20.822 Contact with and (suspected) exposure to COVID-19 (principal)

== ENCOUNTER → 2020-06-09 | Outpatient (REF) | payer MEDICARE, MEDICAID | LOC: SKLAB8 09:00 | PROVIDERS: ATTEND Internal Medicine | DX: Z20.828 Contact with and (suspected) exposure to other viral communicable diseases (principal) ==

== ENCOUNTER → 2020-06-16 | Outpatient (REF) | payer MEDICARE, MEDICAID | LOC: SKLAB8 10:00 | PROVIDERS: ATTEND Internal Medicine | DX: Z20.822 Contact with and (suspected) exposure to COVID-19 (principal) ==

== ENCOUNTER → 2020-06-23 | Outpatient (REF) | payer MEDICARE, MEDICAID | LOC: SKLAB8 10:30 | PROVIDERS: ATTEND Internal Medicine | DX: Z20.822 Contact with and (suspected) exposure to COVID-19 (principal) ==

== ENCOUNTER → 2020-06-30 | Outpatient (REF) | payer MEDICARE, MEDICAID | LOC: SKLAB8 08:00 | PROVIDERS: ATTEND Internal Medicine | DX: Z20.822 Contact with and (suspected) exposure to COVID-19 (principal) ==

== ENCOUNTER → 2020-07-07 | Outpatient (REF) | payer MEDICARE, MEDICAID | LOC: SKLAB8 09:00 | PROVIDERS: ATTEND Internal Medicine | DX: Z20.822 Contact with and (suspected) exposure to COVID-19 (principal) ==

== ENCOUNTER → 2020-07-13 | Outpatient (REF) | payer MEDICARE, MEDICAID ==
[2020-07-13 10:54] LABS: HEMATOCRIT 39.8 % (42.0-52.0); MEAN CORPUSCULAR HGB CONC 32.7 g/dl (32.0-36.5); MEAN CORPUSCULAR VOLUME 91.9 fl (80.0-96.0); PLATELET COUNT, AUTOMATED 110 10^3/uL (150-450); RED BLOOD COUNT 4.33 10^6/uL (4.30-6.10); WHITE BLOOD COUNT 7.3 10^3/uL (4.0-10.0)
[2020-07-13 11:17] LABS: ALBUMIN 3.5 GM/DL (3.2-5.2); BILIRUBIN,TOTAL 0.4 MG/DL (0.2-1.0); CREATININE FOR GFR 1.25 MG/DL (0.70-1.30); POTASSIUM SERUM 4.4 MEQ/L (3.5-5.1)
== END ==
LOC: SKLAB8 09:00
DX: Z13.9 Encounter for screening, unspecified (principal); Z79.899 Other long term (current) drug therapy

== ENCOUNTER → 2020-07-14 | Outpatient (REF) | payer MEDICARE, MEDICAID | LOC: SKLAB8 10:00 | PROVIDERS: ATTEND Internal Medicine | DX: Z20.822 Contact with and (suspected) exposure to COVID-19 (principal) ==

== ENCOUNTER → 2020-07-28 | Outpatient (REF) | payer MEDICARE, MEDICAID | LOC: SKLAB8 09:00 | PROVIDERS: ATTEND Internal Medicine | DX: Z20.822 Contact with and (suspected) exposure to COVID-19 (principal) ==

== ENCOUNTER → 2020-08-04 | Outpatient (REF) | payer MEDICARE, MEDICAID | LOC: SKLAB8 10:00 | PROVIDERS: ATTEND Internal Medicine | DX: Z20.822 Contact with and (suspected) exposure to COVID-19 (principal) ==

== ENCOUNTER → 2020-08-05 | Outpatient (REF) | payer MEDICARE, MEDICAID ==
[2020-08-05 11:06] LABS: HEMOGLOBIN A1c 7.7 %
== END ==
LOC: SKLAB8 07:00
DX: E11.9 Type 2 diabetes mellitus without complications (principal)

== ENCOUNTER → 2020-10-07 | Outpatient (REF) | payer MEDICARE, MEDICAID ==
[2020-10-07 09:56] LABS: BASO % 0.5 % (0.0-1.0); EOS # 0.2 10^3/uL (0.0-0.5); EOS % 2.8 % (0.0-3.0); HEMATOCRIT 37.1 % (42.0-52.0); LYMPH # 1.3 10^3/uL (1.5-5.0); LYMPH % 20.2 % (24.0-44.0); MEAN CORPUSCULAR HEMOGLOBIN 29.7 pg (27.0-33.0); MEAN CORPUSCULAR HGB CONC 32.3 g/dl (32.0-36.5); MEAN CORPUSCULAR VOLUME 91.8 fl (80.0-96.0); MONO # 0.7 10^3/uL (0.0-0.8); MONO % 10.7 % (2.0-8.0); NEUTROPHILS # 4.1 10^3/uL (1.5-8.5); NEUTROPHILS % 65.5 % (36.0-66.0); PLATELET COUNT, AUTOMATED 105 10^3/uL (150-450); RED BLOOD COUNT 4.04 10^6/uL (4.30-6.10); WHITE BLOOD COUNT 6.3 10^3/uL (4.0-10.0)
[2020-10-07 10:17] LABS: ALBUMIN 3.4 GM/DL (3.2-5.2); BILIRUBIN,TOTAL 0.6 MG/DL (0.2-1.0); CALCIUM LEVEL 8.7 MG/DL (8.8-10.2); CHOLESTEROL RISK RATIO 2.145 (<5); CREATININE FOR GFR 1.28 MG/DL (0.70-1.30); GLOMERULAR FILTRATION RATE 57.4 (>35); POTASSIUM SERUM 4.1 MEQ/L (3.5-5.1); TOTAL PROTEIN 6.9 GM/DL (6.4-8.2)
== END ==
LOC: SKLAB8 07:00
DX: E53.8 Deficiency of other specified B group vitamins (principal); E11.40 Type 2 diabetes mellitus with diabetic neuropathy, unspecified

== ENCOUNTER → 2020-11-04 | Outpatient (REF) | payer MEDICARE, MEDICAID ==
[2020-11-04 10:18] LABS: HEMOGLOBIN A1c 7.2 %
== END ==
LOC: SKLAB8 07:00
DX: E11.9 Type 2 diabetes mellitus without complications (principal)

== ENCOUNTER → 2021-01-06 | Outpatient (REF) | payer MEDICARE, MEDICAID ==
[2021-01-06 09:21] LABS: BASO % 0.4 % (0.0-1.0); EOS # 0.3 10^3/uL (0.0-0.5); HEMATOCRIT 37.8 % (42.0-52.0); HEMOGLOBIN 12.3 g/dl (13.5-17.5); LYMPH # 1.4 10^3/uL (1.5-5.0); LYMPH % 20.7 % (24.0-44.0); MEAN CORPUSCULAR HEMOGLOBIN 30.1 pg (27.0-33.0); MEAN CORPUSCULAR HGB CONC 32.5 g/dl (32.0-36.5); MEAN CORPUSCULAR VOLUME 92.6 fl (80.0-96.0); MONO # 0.7 10^3/uL (0.0-0.8); NEUTROPHILS # 4.4 10^3/uL (1.5-8.5); NEUTROPHILS % 64.6 % (36.0-66.0); PLATELET COUNT, AUTOMATED 112 10^3/uL (150-450); RED BLOOD COUNT 4.08 10^6/uL (4.30-6.10); WHITE BLOOD COUNT 6.8 10^3/uL (4.0-10.0)
[2021-01-06 09:50] LABS: ALBUMIN 3.5 GM/DL (3.2-5.2); ALT/SGPT 23 U/L (12-78); BILIRUBIN,TOTAL 0.4 MG/DL (0.2-1.0); BLOOD UREA NITROGEN 23 MG/DL (7-18); CARBON DIOXIDE LEVEL 29 MEQ/L (21-32); CHLORIDE LEVEL 107 MEQ/L (98-107); CREATININE FOR GFR 1.22 MG/DL (0.70-1.30); GLOMERULAR FILTRATION RATE > 60.0 (>35); GLUCOSE, FASTING 123 MG/DL (70-100); POTASSIUM SERUM 4.1 MEQ/L (3.5-5.1); SODIUM LEVEL 140 MEQ/L (136-145); TOTAL PROTEIN 7.1 GM/DL (6.4-8.2)
== END ==
LOC: SKLAB8 07:00
PROVIDERS: ATTEND Neuromusculoskeletal Medicine & OMM
DX: E11.9 Type 2 diabetes mellitus without complications (principal)

== ENCOUNTER → 2021-01-21 | Outpatient (REF) | payer MEDICARE, MEDICAID ==
--- NOTE | 2021-01-21 02:27 | REPVR ---
PROCEDURE INFORMATION: Exam: XR Right Elbow Exam date and time: 01/21/21 (1:06am) Age: 80 years old Clinical indication: Fall. Blunt trauma (contusions or hematomas). Post-fall 'bump'. TECHNIQUE: Imaging protocol: XR Right elbow Views: 2 views COMPARISON: Right forearm plain films of 01/21/21 FINDINGS: Bones/joints: Unremarkable. No acute fracture nor dislocation. Soft tissues: Unremarkable. IMPRESSION: No acute findings. Electronically signed by: Katelyn Talamantes On 01/21/2021 02:26:40 AM
--- NOTE | 2021-01-21 03:01 | REPVR ---
PROCEDURE INFORMATION: Exam: XR Right Forearm Exam date and time: 01/21/21 (1:06am) Age: 80 years old Clinical indication: Fall. Blunt trauma. Post-fall 'bump'. TECHNIQUE: Imaging protocol: XR Right forearm Views: 2 views COMPARISON: US DUPLEX EXT UPPER VEINS UNILATE RIGHT of 02/24/20 FINDINGS: Bones/joints: Unremarkable. No acute fracture nor dislocation. Soft tissues: Unremarkable. IMPRESSION: No acute findings. Electronically signed by: Katelyn Talamantes On 01/21/2021 03:01:23 AM
[2021-01-21 18:43] LABS: HEMATOCRIT 39.3 % (42.0-52.0); HEMOGLOBIN 12.9 g/dl (13.5-17.5); MEAN CORPUSCULAR HEMOGLOBIN 30.4 pg (27.0-33.0); MEAN CORPUSCULAR HGB CONC 32.8 g/dl (32.0-36.5); MEAN CORPUSCULAR VOLUME 92.5 fl (80.0-96.0); PLATELET COUNT, AUTOMATED 99 10^3/uL (150-450); RED BLOOD COUNT 4.25 10^6/uL (4.30-6.10); WHITE BLOOD COUNT 6.6 10^3/uL (4.0-10.0)
[2021-01-21 19:10] LABS: BLOOD UREA NITROGEN 19 MG/DL (7-18); CALCIUM LEVEL 8.9 MG/DL (8.8-10.2); CARBON DIOXIDE LEVEL 28 MEQ/L (21-32); CHLORIDE LEVEL 107 MEQ/L (98-107); CREATININE FOR GFR 1.22 MG/DL (0.70-1.30); GLOMERULAR FILTRATION RATE > 60.0 (>35); GLUCOSE, FASTING 200 MG/DL (70-100); NT-PRO BNP 418 PG/ML (<450); POTASSIUM SERUM 4.3 MEQ/L (3.5-5.1); SODIUM LEVEL 139 MEQ/L (136-145)
== END ==
LOC: SKLAB8 16:57
PROVIDERS: ATTEND Neuromusculoskeletal Medicine & OMM
DX: M21.831 Other specified acquired deformities of right forearm (principal); Z91.81 History of falling; L03.90 Cellulitis, unspecified; R60.0 Localized edema

== ENCOUNTER → 2021-01-26 | Outpatient (REF) | payer MEDICARE, MEDICAID ==
[2021-01-26 20:11] LABS: APPEARANCE, URINE CLEAR (CLEAR); BACTERIA, URINE AUTO NEGATIVE (NEGATIVE); BILIRUBIN, URINE AUTO NEGATIVE (NEGATIVE); BLOOD, URINE BLOOD NEGATIVE (NEGATIVE); COLOR, URINE YELLOW (YELLOW); GLUCOSE, URINE (UA) AUTO 1+ mg/dL (NEGATIVE); KETONE, URINE AUTO NEGATIVE (NEGATIVE); LEUKOCYTE ESTERASE, URINE AUTO NEGATIVE (NEGATIVE); NITRITE, URINE AUTO NEGATIVE (NEGATIVE); PROTEIN, URINE AUTO NEGATIVE (NEGATIVE); RBC, URINE AUTO 0 /HPF (0-3); SPECIFIC GRAVITY URINE AUTO 1.013 (1.002-1.035); SQUAMOUS EPITHELIAL CELL UR AU 0 /HPF (0-6); UROBILINOGEN, URINE AUTO 0.2 mg/dL (0.0-2.0); WBC, URINE AUTO 0 /HPF (0-3)
== END ==
LOC: SKLAB8 19:33
PROVIDERS: ATTEND Neuromusculoskeletal Medicine & OMM
DX: R41.89 Other symptoms and signs involving cognitive functions and awareness (principal); Z79.899 Other long term (current) drug therapy

== ENCOUNTER → 2021-02-03 | Outpatient (REF) | payer MEDICARE, MEDICAID ==
[2021-02-03 11:26] LABS: HEMOGLOBIN A1c 6.9 %
== END ==
LOC: SKLAB8 07:00
PROVIDERS: ATTEND Neuromusculoskeletal Medicine & OMM
DX: E11.9 Type 2 diabetes mellitus without complications (principal)

== ENCOUNTER → 2021-03-14 | Outpatient (REF) | payer MEDICARE, MEDICAID | LOC: SKLAB8 07:06 | PROVIDERS: ATTEND Neuromusculoskeletal Medicine & OMM | DX: Z20.822 Contact with and (suspected) exposure to COVID-19 (principal) ==

== ENCOUNTER → 2021-03-17 | Outpatient (REF) | payer MEDICARE, MEDICAID | LOC: SKLAB8 05:27 | PROVIDERS: ATTEND Neuromusculoskeletal Medicine & OMM | DX: Z20.822 Contact with and (suspected) exposure to COVID-19 (principal) ==

== ENCOUNTER → 2021-03-21 | Outpatient (REF) | payer MEDICARE, MEDICAID | LOC: SKLAB8 06:10 | PROVIDERS: ATTEND Neuromusculoskeletal Medicine & OMM | DX: Z20.822 Contact with and (suspected) exposure to COVID-19 (principal) ==

== ENCOUNTER → 2021-03-23 | Outpatient (REF) | payer MEDICARE, MEDICAID | LOC: SKLAB8 23:30 | PROVIDERS: ATTEND Neuromusculoskeletal Medicine & OMM | DX: R50.9 Fever, unspecified (principal) ==

== ENCOUNTER → 2021-03-24 | Outpatient (REF) | payer MEDICARE, MEDICAID | LOC: SKLAB8 06:26 | PROVIDERS: ATTEND Neuromusculoskeletal Medicine & OMM | DX: Z53.9 Procedure and treatment not carried out, unspecified reason (principal) ==

== ENCOUNTER → 2021-03-30 | Outpatient (REF) | payer MEDICARE, MEDICAID | LOC: SKLAB8 06:10 | PROVIDERS: ATTEND Neuromusculoskeletal Medicine & OMM | DX: Z20.822 Contact with and (suspected) exposure to COVID-19 (principal) ==

== ENCOUNTER → 2021-04-06 | Outpatient (REF) | payer MEDICARE, MEDICAID | LOC: SKLAB8 08:17 | PROVIDERS: ATTEND Neuromusculoskeletal Medicine & OMM | DX: Z20.822 Contact with and (suspected) exposure to COVID-19 (principal) ==

== ENCOUNTER → 2021-04-07 | Outpatient (REF) | payer MEDICARE, MEDICAID ==
[2021-04-07 11:20] LABS: BASO % 0.3 % (0.0-1.0); EOS # 0.2 10^3/uL (0.0-0.5); EOS % 3.6 % (0.0-3.0); HEMATOCRIT 37.3 % (42.0-52.0); HEMOGLOBIN 12.2 g/dl (13.5-17.5); LYMPH # 1.4 10^3/uL (1.5-5.0); LYMPH % 21.8 % (24.0-44.0); MEAN CORPUSCULAR HEMOGLOBIN 30.3 pg (27.0-33.0); MEAN CORPUSCULAR HGB CONC 32.7 g/dl (32.0-36.5); MEAN CORPUSCULAR VOLUME 92.6 fl (80.0-96.0); MONO # 0.6 10^3/uL (0.0-0.8); MONO % 9.9 % (2.0-8.0); NEUTROPHILS # 4.1 10^3/uL (1.5-8.5); NEUTROPHILS % 64.1 % (36.0-66.0); PLATELET COUNT, AUTOMATED 104 10^3/uL (150-450); RED BLOOD COUNT 4.03 10^6/uL (4.30-6.10); WHITE BLOOD COUNT 6.4 10^3/uL (4.0-10.0)
[2021-04-07 11:46] LABS: ALT/SGPT 20 U/L (12-78); BILIRUBIN,TOTAL 0.3 MG/DL (0.2-1.0); BLOOD UREA NITROGEN 23 MG/DL (7-18); CALCIUM LEVEL 8.7 MG/DL (8.8-10.2); CARBON DIOXIDE LEVEL 28 MEQ/L (21-32); CHLORIDE LEVEL 105 MEQ/L (98-107); CREATININE FOR GFR 1.13 MG/DL (0.70-1.30); GLOMERULAR FILTRATION RATE > 60.0 (>35); GLUCOSE, FASTING 249 MG/DL (70-100); POTASSIUM SERUM 4.4 MEQ/L (3.5-5.1); SODIUM LEVEL 138 MEQ/L (136-145); TOTAL PROTEIN 6.3 GM/DL (6.4-8.2)
[2021-04-07 12:03] LABS: VITAMIN B12 LEVEL 739 PG/ML (247-911)
== END ==
LOC: SKLAB8 09:00
PROVIDERS: ATTEND Neuromusculoskeletal Medicine & OMM
DX: E11.9 Type 2 diabetes mellitus without complications (principal); E56.9 Vitamin deficiency, unspecified

== ENCOUNTER → 2021-04-27 | Outpatient (REF) | payer MEDICARE, MEDICAID | LOC: SKLAB8 08:27 | PROVIDERS: ATTEND Neuromusculoskeletal Medicine & OMM | DX: Z20.822 Contact with and (suspected) exposure to COVID-19 (principal) ==

== ENCOUNTER → 2021-05-04 | Outpatient (REF) | payer MEDICARE, MEDICAID | LOC: SKLAB8 14:18 | PROVIDERS: ATTEND Neuromusculoskeletal Medicine & OMM | DX: Z20.822 Contact with and (suspected) exposure to COVID-19 (principal) ==

== ENCOUNTER → 2021-05-04 | Outpatient (REF) | payer MEDICARE, MEDICAID ==
[2021-05-04 14:19] LABS: HEMATOCRIT 36.8 % (42.0-52.0); HEMOGLOBIN 12.2 g/dl (13.5-17.5); MEAN CORPUSCULAR HEMOGLOBIN 30.3 pg (27.0-33.0); MEAN CORPUSCULAR HGB CONC 33.2 g/dl (32.0-36.5); MEAN CORPUSCULAR VOLUME 91.5 fl (80.0-96.0); RED BLOOD COUNT 4.02 10^6/uL (4.30-6.10); WHITE BLOOD COUNT 4.6 10^3/uL (4.0-10.0)
[2021-05-04 14:46] LABS: BLOOD UREA NITROGEN 20 MG/DL (7-18); CALCIUM LEVEL 8.8 MG/DL (8.8-10.2); CARBON DIOXIDE LEVEL 27 MEQ/L (21-32); CHLORIDE LEVEL 107 MEQ/L (98-107); CREATININE FOR GFR 1.14 MG/DL (0.70-1.30); GLOMERULAR FILTRATION RATE > 60.0 (>35); GLUCOSE, FASTING 248 MG/DL (70-100); SODIUM LEVEL 141 MEQ/L (136-145)
[2021-05-04 15:23] LABS: PLATELET COUNT, AUTOMATED 95 10^3/uL (150-450)
[2021-05-05 10:12] LABS: HEMOGLOBIN A1c 7.8 %
== END ==
LOC: SKLAB8 13:32
PROVIDERS: ATTEND Neuromusculoskeletal Medicine & OMM
DX: E11.9 Type 2 diabetes mellitus without complications (principal); R41.82 Altered mental status, unspecified; Z20.822 Contact with and (suspected) exposure to COVID-19
CPT/HCPCS: 36415; 80048; 83036; 85027; 85049; 85055; U0002

== ENCOUNTER → 2021-05-05 | Outpatient (REF) | payer MEDICARE, MEDICAID ==
[2021-05-05 06:11] LABS: APPEARANCE, URINE CLEAR (CLEAR); BACTERIA, URINE AUTO NEGATIVE (NEGATIVE); BILIRUBIN, URINE AUTO NEGATIVE (NEGATIVE); BLOOD, URINE BLOOD NEGATIVE (NEGATIVE); COLOR, URINE YELLOW (YELLOW); GLUCOSE, URINE (UA) AUTO 1+ mg/dL (NEGATIVE); KETONE, URINE AUTO NEGATIVE (NEGATIVE); LEUKOCYTE ESTERASE, URINE AUTO NEGATIVE (NEGATIVE); NITRITE, URINE AUTO NEGATIVE (NEGATIVE); PROTEIN, URINE AUTO NEGATIVE (NEGATIVE); RBC, URINE AUTO 0 /HPF (0-3); SPECIFIC GRAVITY URINE AUTO 1.013 (1.002-1.035); SQUAMOUS EPITHELIAL CELL UR AU 0 /HPF (0-6); UROBILINOGEN, URINE AUTO 0.2 mg/dL (0.0-2.0); WBC, URINE AUTO 3 /HPF (0-3)
== END ==
LOC: SKLAB8 05:00
PROVIDERS: ATTEND Neuromusculoskeletal Medicine & OMM
DX: R41.82 Altered mental status, unspecified (principal)

== ENCOUNTER → 2021-05-11 | Outpatient (REF) | payer MEDICARE, MEDICAID | LOC: SKLAB8 14:40 | PROVIDERS: ATTEND Neuromusculoskeletal Medicine & OMM | DX: Z20.822 Contact with and (suspected) exposure to COVID-19 (principal) ==

== ENCOUNTER → 2021-05-18 | Outpatient (REF) | payer MEDICARE, MEDICAID | LOC: SKLAB8 14:11 | PROVIDERS: ATTEND Internal Medicine | DX: Z20.822 Contact with and (suspected) exposure to COVID-19 (principal) ==

== ENCOUNTER → 2021-05-25 | Outpatient (REF) | payer MEDICARE, MEDICAID | LOC: SKLAB8 11:40 | PROVIDERS: ATTEND Neuromusculoskeletal Medicine & OMM | DX: Z20.822 Contact with and (suspected) exposure to COVID-19 (principal) ==

== ENCOUNTER → 2021-05-27 | Outpatient (REF) | payer MEDICARE, MEDICAID ==
[2021-05-27 15:14] LABS: HEMATOCRIT 38.3 % (42.0-52.0); HEMOGLOBIN 12.5 g/dl (13.5-17.5); MEAN CORPUSCULAR HEMOGLOBIN 30.2 pg (27.0-33.0); MEAN CORPUSCULAR HGB CONC 32.6 g/dl (32.0-36.5); MEAN CORPUSCULAR VOLUME 92.5 fl (80.0-96.0); PLATELET COUNT, AUTOMATED 102 10^3/uL (150-450); RED BLOOD COUNT 4.14 10^6/uL (4.30-6.10); WHITE BLOOD COUNT 4.2 10^3/uL (4.0-10.0)
[2021-05-27 15:31] LABS: ALBUMIN 3.4 GM/DL (3.2-5.2); ALT/SGPT 23 U/L (12-78); BILIRUBIN,TOTAL 0.5 MG/DL (0.2-1.0); BLOOD UREA NITROGEN 21 MG/DL (7-18); CALCIUM LEVEL 8.5 MG/DL (8.8-10.2); CARBON DIOXIDE LEVEL 30 MEQ/L (21-32); CHLORIDE LEVEL 107 MEQ/L (98-107); GLOMERULAR FILTRATION RATE > 60.0 (>35); GLUCOSE, FASTING 172 MG/DL (70-100); POTASSIUM SERUM 4.3 MEQ/L (3.5-5.1); SODIUM LEVEL 141 MEQ/L (136-145)
== END ==
LOC: SKLAB8 07:23
PROVIDERS: ATTEND Neuromusculoskeletal Medicine & OMM
DX: U07.1 COVID-19 (principal); Z79.899 Other long term (current) drug therapy

== ENCOUNTER → 2021-06-02 | Outpatient (REF) | payer MEDICARE, MEDICAID | LOC: SKLAB8 07:00 | PROVIDERS: ATTEND Neuromusculoskeletal Medicine & OMM | DX: Z53.9 Procedure and treatment not carried out, unspecified reason (principal) ==

== ENCOUNTER → 2021-07-07 | Outpatient (REF) | payer MEDICARE, MEDICAID ==
[2021-07-07 17:01] LABS: BASO % 0.4 % (0.0-1.0); EOS # 0.3 10^3/uL (0.0-0.5); EOS % 3.9 % (0.0-3.0); HEMATOCRIT 38.8 % (42.0-52.0); HEMOGLOBIN 12.7 g/dl (13.5-17.5); LYMPH # 1.5 10^3/uL (1.5-5.0); LYMPH % 20.6 % (24.0-44.0); MEAN CORPUSCULAR HGB CONC 32.7 g/dl (32.0-36.5); MEAN CORPUSCULAR VOLUME 91.7 fl (80.0-96.0); MONO # 0.8 10^3/uL (0.0-0.8); MONO % 10.3 % (2.0-8.0); NEUTROPHILS # 4.8 10^3/uL (1.5-8.5); NEUTROPHILS % 64.5 % (36.0-66.0); PLATELET COUNT, AUTOMATED 101 10^3/uL (150-450); RED BLOOD COUNT 4.23 10^6/uL (4.30-6.10); WHITE BLOOD COUNT 7.5 10^3/uL (4.0-10.0)
[2021-07-07 17:14] LABS: ALBUMIN 3.2 GM/DL (3.2-5.2); ALT/SGPT 14 U/L (12-78); BILIRUBIN,TOTAL 0.4 MG/DL (0.2-1.0); BLOOD UREA NITROGEN 19 MG/DL (7-18); CALCIUM LEVEL 8.7 MG/DL (8.8-10.2); CARBON DIOXIDE LEVEL 29 MEQ/L (21-32); CHLORIDE LEVEL 106 MEQ/L (98-107); CREATININE FOR GFR 1.13 MG/DL (0.70-1.30); GLOMERULAR FILTRATION RATE > 60.0 (>35); GLUCOSE, FASTING 155 MG/DL (70-100); SODIUM LEVEL 141 MEQ/L (136-145)
== END ==
LOC: SKLAB8 07:00
PROVIDERS: ATTEND Neuromusculoskeletal Medicine & OMM
DX: Z79.899 Other long term (current) drug therapy (principal)

== ENCOUNTER → 2021-08-04 | Outpatient (REF) | payer MEDICARE, MEDICAID ==
[~2021-08-04] MED LIST changes: -TRIA37.53 PO; +TRIA37.577 PO
[2021-08-04 18:45] LABS: HEMOGLOBIN A1c 6.9 %
== END ==
LOC: SKLAB8 07:00
PROVIDERS: ATTEND Neuromusculoskeletal Medicine & OMM
DX: E11.9 Type 2 diabetes mellitus without complications (principal)

== ENCOUNTER → 2021-08-28 | Outpatient (REF) ==
[~2021-08-28] MED LIST changes: +TRIA37.53 PO; -TRIA37.577 PO
== END ==
LOC: SKLAB7 15:29
PROVIDERS: ATTEND Neuromusculoskeletal Medicine & OMM
DX: Z11.9 Encounter for screening for infectious and parasitic diseases, unspecified (principal); Z53.9 Procedure and treatment not carried out, unspecified reason

== ENCOUNTER → 2021-10-06 | Outpatient (REF) | payer MEDICARE, MEDICAID ==
[~2021-10-06] MED LIST changes: -TRIA37.53 PO; +TRIA37.577 PO
[2021-10-06 11:19] LABS: BASO % 0.2 % (0.0-1.0); EOS # 0.1 10^3/uL (0.0-0.5); EOS % 1.1 % (0.0-3.0); HEMATOCRIT 39.1 % (42.0-52.0); HEMOGLOBIN 12.6 g/dl (13.5-17.5); LYMPH # 2.3 10^3/uL (1.5-5.0); LYMPH % 18.6 % (24.0-44.0); MEAN CORPUSCULAR HEMOGLOBIN 29.8 pg (27.0-33.0); MEAN CORPUSCULAR HGB CONC 32.2 g/dl (32.0-36.5); MEAN CORPUSCULAR VOLUME 92.4 fl (80.0-96.0); MONO % 7.8 % (2.0-8.0); NEUTROPHILS # 8.8 10^3/uL (1.5-8.5); NEUTROPHILS % 71.7 % (36.0-66.0); PLATELET COUNT, AUTOMATED 131 10^3/uL (150-450); RED BLOOD COUNT 4.23 10^6/uL (4.30-6.10); WHITE BLOOD COUNT 12.2 10^3/uL (4.0-10.0)
[2021-10-06 11:56] LABS: BILIRUBIN,TOTAL 0.8 MG/DL (0.2-1.0); CHOLESTEROL RISK RATIO 2.052 (<5); CREATININE FOR GFR 1.36 MG/DL (0.70-1.30); GLOMERULAR FILTRATION RATE 53.4 (>35); POTASSIUM SERUM 4.7 MEQ/L (3.5-5.1); TOTAL PROTEIN 7.2 GM/DL (6.4-8.2)
== END ==
LOC: SKLAB8 07:00
PROVIDERS: ATTEND Neuromusculoskeletal Medicine & OMM
DX: E53.8 Deficiency of other specified B group vitamins (principal); Z79.899 Other long term (current) drug therapy

== ENCOUNTER → 2021-10-10 | Outpatient (REF) | payer MEDICARE, MEDICAID ==
[2021-10-10 09:40] LABS: HEMATOCRIT 37.6 % (42.0-52.0); HEMOGLOBIN 12.6 g/dl (13.5-17.5); MEAN CORPUSCULAR HEMOGLOBIN 30.7 pg (27.0-33.0); MEAN CORPUSCULAR HGB CONC 33.5 g/dl (32.0-36.5); MEAN CORPUSCULAR VOLUME 91.5 fl (80.0-96.0); PLATELET COUNT, AUTOMATED 121 10^3/uL (150-450); RED BLOOD COUNT 4.11 10^6/uL (4.30-6.10); WHITE BLOOD COUNT 7.8 10^3/uL (4.0-10.0)
[2021-10-10 10:52] LABS: BLOOD UREA NITROGEN 20 MG/DL (7-18); CALCIUM LEVEL 8.2 MG/DL (8.8-10.2); CARBON DIOXIDE LEVEL 27 MEQ/L (21-32); CHLORIDE LEVEL 105 MEQ/L (98-107); CREATININE FOR GFR 1.22 MG/DL (0.70-1.30); GLOMERULAR FILTRATION RATE > 60.0 (>35); GLUCOSE, FASTING 241 MG/DL (70-100); POTASSIUM SERUM 3.8 MEQ/L (3.5-5.1); SODIUM LEVEL 138 MEQ/L (136-145)
== END ==
LOC: SKLAB8 07:00
PROVIDERS: ATTEND Neuromusculoskeletal Medicine & OMM
DX: E86.0 Dehydration (principal); D72.829 Elevated white blood cell count, unspecified

== ENCOUNTER → 2021-12-12 | Outpatient (REF) | payer MEDICARE, MEDICAID | LOC: SKLAB8 14:17 | PROVIDERS: ATTEND Neuromusculoskeletal Medicine & OMM | DX: Z53.9 Procedure and treatment not carried out, unspecified reason (principal) ==

== ENCOUNTER → 2021-12-27 | Outpatient (REF) | payer MEDICARE, MEDICAID | LOC: SKLAB8 11:43 | PROVIDERS: ATTEND Neuromusculoskeletal Medicine & OMM | DX: I51.7 Cardiomegaly (principal) ==

== ENCOUNTER → 2022-01-05 | Outpatient (REF) | payer MEDICARE, MEDICAID ==
[2022-01-05 08:42] LABS: BASO % 0.4 % (0.0-1.0); EOS # 0.4 10^3/uL (0.0-0.5); EOS % 5.8 % (0.0-3.0); HEMATOCRIT 38.2 % (42.0-52.0); HEMOGLOBIN 12.5 g/dl (13.5-17.5); LYMPH # 1.2 10^3/uL (1.5-5.0); LYMPH % 17.3 % (24.0-44.0); MEAN CORPUSCULAR HEMOGLOBIN 30.6 pg (27.0-33.0); MEAN CORPUSCULAR HGB CONC 32.7 g/dl (32.0-36.5); MEAN CORPUSCULAR VOLUME 93.4 fl (80.0-96.0); MONO # 0.5 10^3/uL (0.0-0.8); MONO % 7.4 % (2.0-8.0); NEUTROPHILS # 4.7 10^3/uL (1.5-8.5); NEUTROPHILS % 68.7 % (36.0-66.0); PLATELET COUNT, AUTOMATED 145 10^3/uL (150-450); RED BLOOD COUNT 4.09 10^6/uL (4.30-6.10); WHITE BLOOD COUNT 6.9 10^3/uL (4.0-10.0)
[2022-01-05 09:17] LABS: ALBUMIN 3.1 GM/DL (3.2-5.2); ALT/SGPT 20 U/L (12-78); BILIRUBIN,TOTAL 0.3 MG/DL (0.2-1.0); BLOOD UREA NITROGEN 13 MG/DL (7-18); CALCIUM LEVEL 8.8 MG/DL (8.8-10.2); CARBON DIOXIDE LEVEL 30 MEQ/L (21-32); CHLORIDE LEVEL 105 MEQ/L (98-107); GLOMERULAR FILTRATION RATE > 60.0 (>35); GLUCOSE, FASTING 174 MG/DL (70-100); POTASSIUM SERUM 4.3 MEQ/L (3.5-5.1); SODIUM LEVEL 137 MEQ/L (136-145); TOTAL PROTEIN 6.8 GM/DL (6.4-8.2)
== END ==
LOC: SKLAB8 07:00
PROVIDERS: ATTEND Neuromusculoskeletal Medicine & OMM
DX: F03.90 Unspecified dementia, unspecified severity, without behavioral disturbance, psychotic disturbance, mood disturbance, and anxiety (principal)

== ENCOUNTER → 2022-01-15 | Outpatient (REF) ==
[2022-01-15 12:16] LABS: BASO % 0.3 % (0.0-1.0); EOS # 0.1 10^3/uL (0.0-0.5); EOS % 0.5 % (0.0-3.0); HEMATOCRIT 37.9 % (42.0-52.0); HEMOGLOBIN 12.9 g/dl (13.5-17.5); LYMPH # 1.3 10^3/uL (1.5-5.0); LYMPH % 10.6 % (24.0-44.0); MEAN CORPUSCULAR HEMOGLOBIN 30.6 pg (27.0-33.0); MEAN CORPUSCULAR VOLUME 89.8 fl (80.0-96.0); MONO # 1.1 10^3/uL (0.0-0.8); MONO % 9.1 % (2.0-8.0); NEUTROPHILS # 9.8 10^3/uL (1.5-8.5); PLATELET COUNT, AUTOMATED 145 10^3/uL (150-450); RED BLOOD COUNT 4.22 10^6/uL (4.30-6.10); WHITE BLOOD COUNT 12.4 10^3/uL (4.0-10.0)
[2022-01-15 12:54] LABS: ALBUMIN 3.4 GM/DL (3.2-5.2); ALT/SGPT 23 U/L (12-78); BILIRUBIN,TOTAL 0.6 MG/DL (0.2-1.0); BLOOD UREA NITROGEN 20 MG/DL (7-18); CARBON DIOXIDE LEVEL 26 MEQ/L (21-32); CHLORIDE LEVEL 105 MEQ/L (98-107); CREATININE FOR GFR 1.17 MG/DL (0.70-1.30); GLOMERULAR FILTRATION RATE > 60.0 (>35); GLUCOSE, FASTING 159 MG/DL (70-100); POTASSIUM SERUM 4.1 MEQ/L (3.5-5.1); SODIUM LEVEL 137 MEQ/L (136-145); TOTAL PROTEIN 7.5 GM/DL (6.4-8.2)
== END ==
LOC: SKLAB8 10:41
PROVIDERS: ATTEND Neuromusculoskeletal Medicine & OMM
DX: R29.3 Abnormal posture (principal); Z91.81 History of falling

== ENCOUNTER → 2022-01-15 | Outpatient (REF) ==
[2022-01-15 17:29] LABS: APPEARANCE, URINE MANUAL CLOUDY (CLEAR); COLOR, URINE MANUAL YELLOW (YELLOW)
[2022-01-15 17:30] LABS: BILIRUBIN, URINE MANUAL NEGATIVE (NEGATIVE); BLOOD URINE MANUAL TRACE (NEGATIVE); GLUCOSE, URINE (UA) MANUAL NEGATIVE (NEGATIVE); KETONE, URINE MANUAL NEGATIVE (NEGATIVE); LEUKOCYTE ESTERASE, URINE MAN POSITIVE (NEGATIVE); NITRITE, URINE MANUAL NEGATIVE (NEGATIVE); SPECIFIC GRAVITY,URINE MANUAL 1.025 (1.002-1.035); UROBILINOGEN, URINE MANUAL 1 MG mg/dl (NORMAL)
[2022-01-15 17:31] LABS: PH,URINE MAN 6.5 UNITS (5.0 - 7.0); PROTEIN, URINE MANUAL 1+ mg/dL (NEGATIVE)
[2022-01-15 17:54] LABS: BACTERIA, URINE LARGE AMOUNT; HYALINE CAST, URINE NONE SEEN /lpf (0-1); MUCUS, URINE LARGE AMOUNT (NEGATIVE); SQUAMOUS EPITHELIAL CELL URINE SMALL AMOUNT /hpf (SMALL AMT); WBC, URINE 30-40 /hpf (0-3)
== END ==
LOC: SKLAB8 15:05
PROVIDERS: ATTEND Neuromusculoskeletal Medicine & OMM
DX: D72.829 Elevated white blood cell count, unspecified (principal)

== ENCOUNTER → 2022-01-17 | Outpatient (REF) | payer MEDICARE, MEDICAID | LOC: SKLAB8 10:21 | PROVIDERS: ATTEND Nurse Practitioner Adult Health | DX: M25.552 Pain in left hip (principal) ==

== ENCOUNTER → 2022-01-18 | Outpatient (CLI) | payer MEDICARE, MEDICAID | LOC: M RAD 11:37 | PROVIDERS: ATTEND Nurse Practitioner Family | DX: M25.552 Pain in left hip (principal); M16.12 Unilateral primary osteoarthritis, left hip; Z91.81 History of falling; I25.2 Old myocardial infarction; R00.1 Bradycardia, unspecified ==

== ENCOUNTER → 2022-01-18 | Outpatient (REF) | payer MEDICARE, MEDICAID | LOC: SKLAB8 12:57 | PROVIDERS: ATTEND Nurse Practitioner Family | DX: I25.2 Old myocardial infarction (principal) ==

== ENCOUNTER → 2022-02-02 | Outpatient (REF) | payer MEDICARE, MEDICAID ==
[2022-02-02 12:36] LABS: HEMOGLOBIN A1c 6.8 %
== END ==
LOC: SKLAB8 07:00
PROVIDERS: ATTEND Nurse Practitioner Family
DX: E11.9 Type 2 diabetes mellitus without complications (principal); Z79.899 Other long term (current) drug therapy

== ENCOUNTER → 2022-04-01 | Outpatient (REF) | payer MEDICARE, MEDICAID | LOC: SKLAB8 21:49 | PROVIDERS: ATTEND Neuromusculoskeletal Medicine & OMM | DX: R05.9 Cough, unspecified (principal) ==

== ENCOUNTER → 2022-04-02 | Outpatient (REF) | payer MEDICARE, MEDICAID ==
[2022-04-02 06:49] LABS: BASO % 0.2 % (0.0-1.0); EOS # 0.3 10^3/uL (0.0-0.5); EOS % 3.5 % (0.0-3.0); HEMATOCRIT 35.3 % (42.0-52.0); HEMOGLOBIN 11.3 g/dl (13.5-17.5); LYMPH # 1.4 10^3/uL (1.5-5.0); MEAN CORPUSCULAR HEMOGLOBIN 29.7 pg (27.0-33.0); MEAN CORPUSCULAR VOLUME 92.7 fl (80.0-96.0); MONO # 0.8 10^3/uL (0.0-0.8); MONO % 9.1 % (2.0-8.0); NEUTROPHILS # 6.4 10^3/uL (1.5-8.5); NEUTROPHILS % 71.5 % (36.0-66.0); PLATELET COUNT, AUTOMATED 140 10^3/uL (150-450); RED BLOOD COUNT 3.81 10^6/uL (4.30-6.10)
[2022-04-02 07:11] LABS: ALBUMIN 2.6 GM/DL (3.2-5.2); ALT/SGPT 18 U/L (12-78); BILIRUBIN,TOTAL 0.7 MG/DL (0.2-1.0); BLOOD UREA NITROGEN 21 MG/DL (7-18); CALCIUM LEVEL 8.6 MG/DL (8.8-10.2); CARBON DIOXIDE LEVEL 30 MEQ/L (21-32); CHLORIDE LEVEL 105 MEQ/L (98-107); CREATININE FOR GFR 1.21 MG/DL (0.70-1.30); GLOMERULAR FILTRATION RATE > 60.0 (>35); GLUCOSE, FASTING 181 MG/DL (70-100); POTASSIUM SERUM 4.2 MEQ/L (3.5-5.1); SODIUM LEVEL 139 MEQ/L (136-145)
== END ==
LOC: SKLAB8 06:00
PROVIDERS: ATTEND Neuromusculoskeletal Medicine & OMM
DX: R05.9 Cough, unspecified (principal); Z79.899 Other long term (current) drug therapy

== ENCOUNTER → 2022-04-06 | Outpatient (REF) | payer MEDICARE, MEDICAID ==
[2022-04-06 09:39] LABS: BASO % 0.4 % (0.0-1.0); EOS # 0.2 10^3/uL (0.0-0.5); EOS % 2.2 % (0.0-3.0); HEMATOCRIT 37.3 % (42.0-52.0); HEMOGLOBIN 11.8 g/dl (13.5-17.5); MEAN CORPUSCULAR HEMOGLOBIN 29.6 pg (27.0-33.0); MEAN CORPUSCULAR HGB CONC 31.6 g/dl (32.0-36.5); MEAN CORPUSCULAR VOLUME 93.7 fl (80.0-96.0); MONO # 0.6 10^3/uL (0.0-0.8); MONO % 7.5 % (2.0-8.0); NEUTROPHILS # 6.6 10^3/uL (1.5-8.5); NEUTROPHILS % 77.4 % (36.0-66.0); PLATELET COUNT, AUTOMATED 154 10^3/uL (150-450); RED BLOOD COUNT 3.98 10^6/uL (4.30-6.10); WHITE BLOOD COUNT 8.5 10^3/uL (4.0-10.0)
[2022-04-06 10:48] LABS: ALBUMIN 2.9 G/DL (3.2-5.2); ALT/SGPT 19 U/L (7.0-40); BILIRUBIN,TOTAL 0.4 MG/DL (0.3-1.2); BLOOD UREA NITROGEN 21 MG/DL (9-23); CALCIUM LEVEL 9.1 MG/DL (8.3-10.6); CARBON DIOXIDE LEVEL 29 MMOL/L (20-31); CHLORIDE LEVEL 107 MMOL/L (98-107); CREATININE FOR GFR 1.03 MG/DL (0.70-1.30); GLOMERULAR FILTRATION RATE > 60.0 (>35); GLUCOSE, FASTING 183 MG/DL (74-106); POTASSIUM SERUM 3.9 MMOL/L (3.5-5.1); SODIUM LEVEL 143 MMOL/L (136-145); TOTAL PROTEIN 6.9 G/DL (5.7-8.2); VITAMIN B12 LEVEL 687 PG/ML (211-911)
== END ==
LOC: SKLAB8 07:00
PROVIDERS: ATTEND Nurse Practitioner Family
DX: E53.8 Deficiency of other specified B group vitamins (principal); Z79.899 Other long term (current) drug therapy